=== PATIENT | male | born 1930 | race Caucasian/White ===

== ENCOUNTER → 2017-03-09 | Outpatient (CLI) | payer MEDICARE, OTHER ==
[2016-06-09 18:04] VITALS: BMI 21.6
[~2017-03-09] MED LIST: ASPI-715 PO; ATOR10TA65 PO; AZIT-18 PO; CALC-638 PO; CALC-756 PO; CALC-852 PO; CALC-9 PO; CALC500T6 PO; CAR3.125 PO; CAR6.25 PO; CHOL100058 PO; CHOL200022 PO; CIP500 PO; CLOB15OI16 TP; CYA1000 PO; Cefdinir PO; DEX4 PO; DEXA2TAB7 PO; DIGO125T90 PO; DIGO250T76 PO; DILT240C PO; DIPH0.5D12 IM; DOC100 PO; ENOX100D5 SC; ENOX40DI8 SQ; FISH OIL1 CAP PO; FISH1CAP15 PO; FLU45SYR25 IM ONLY; FURO-45 PO; FURO-47 PO; HYDR-385 PO; HYDR453.8 TP; IBAN150T6 PO; LACT1CAP6 PO; LACT1CAP9 PO; LID5T TP; LISI-357 PO; LISI5TAB25 PO; LOPE2CAP15 PO; LOR5/325 PO; MULT-820 PO; MULT1TAB64 PO; NIVO100V IV; OMEG-11 PO; OMEG-97 PO; OMEP-125 PO; OMEP-153 PO; OMEP40CA45 PO; OMEP40CA48 PO; ONDA4TAB PO; ONDA8TAB91 PO; ONDA8TAB94 PO; OXYC-373 PO; OXYGENHOME INH; PER PO; PNEU0.5D3 IM; POTA-23 PO; PRED-1 PO; PSYL1000 PO; PYRI100T57 PO; SIMV-44 PO; STOPPED ASA; TAMS0.4C25 PO; TRAM-420 PO; VIT-7 PO; WARF-1 PO; WARF-18 PO; [UNRECOGNIZED DRUG - OTHER] PO
[2017-03-09 08:34] LABS: INR 2.34
== END ==
LOC: ZZSPRING 00:48
PROVIDERS: ATTEND Pharmacist Pharmacotherapy
DX: I26.99 Other pulmonary embolism without acute cor pulmonale (principal); I48.0 Paroxysmal atrial fibrillation; D68.59 Other primary thrombophilia
CPT/HCPCS: 36415; 85610

== ENCOUNTER 2017-03-18 11:27 | Outpatient (RCR) | payer MEDICARE, OTHER ==
[2016-06-09 18:04] VITALS: Ht 180.3 cm; Wt 76.6 kg
[2017-01-03] MEDS: NS(*) 0.9% 500 ML BAG 500 ML IV PRN (09:00)
[2017-01-03] MEDS: LIDOCAINE/SOD BICARB 8.4% SYR ID PRN (09:00)
[2017-01-03 09:38] VITALS: BP 99/65
[2017-01-03 09:51] LABS: PLATELET COUNT, AUTOMATED 155 K/uL (150-450)
[2017-01-03] MEDS: DEXAMETHASONE SOD PHOS 10MG/ML IVP PRN (10:31)
--- NOTE | 2017-01-03 11:02 | ONC Progress Note - NP.Halsey ---
Patient History Date of Service Jan 03, 2017 Reason For Visit/HPI Patient is seen in the clinic today for cycle 6 day 8 of gemcitabine as treatment for his classic Hodgkin lymphoma involving the retroperitoneum. Patient has a history of early stage colon cancer and prostate cancer. Patient is seen with his and daughter. Overall he is feeling very well and has no new concerns. He continues to have mild to moderate fatigue and neuropathy in his toes and his right thumb only. Patient reports that he is scheduled for a CT scan on January 17 and will follow with Dr. Sanders to review results. Problem List (1) History of colon cancer, stage I (2) History of prostate cancer Oncology History The patient is an 86-year-old male who presented with low back pain and ankle weakness, so the patient had MRI of the lumbar spine without contrast, which was done on November 12, 2015. This MRI actually showed extensive retroperitoneal adenopathy suspicious for malignancy. There was 1.1 cm focal marrow lesion in lumbar 4, which was indeterminate. There was lumbar spondylosis resulting in foraminal stenosis, which appeared worse at lumbar 4-5 and lumbar 5-S1 on the right. The patient had a CT of chest, abdomen and pelvis with/without contrast done on November 17, 2015 which showed enlarged multinodular thyroid gland, post surgical changes from cystectomy and prostatectomy. There was massive retroperitoneal adenopathy, right common iliac lymph node measuring 3.8 cm, right iliac lymph node measured 2.6 cm. There was 9 mm hyperattenuated lesion in the dome of the spleen; could represent hemangioma or lymphangioma. There were numerous bilateral renal cysts. In the mediastinum there was 5.1 cm low dense space-occupying process in the right paratracheal region extending into the precarinal region and an additional 1.3 cm hypodensity in the subcarinal region. A bone scan was done on November 17, 2015 revealing a focal area of isotope in the left tenth costovertebral junction. Repeat CT of abdomen and pelvis with intravenous contrast done on December 05, 2015 did reveal right colonic clips, massive retroperitoneal adenopathy. The renal cyst seems to be simple in nature. The patient had a colonoscopy done on December 04, 2015 because of his history of colon polyps with retroperitoneal lymphadenopathy. There are polyps seen in the cecum, one polyp, two polyps in the ascending colon, one polyp in the descending colon, one polyp in the sigmoid colon. The cecal polyp was quite large and suspicious for neoplasm. On December 05, 2015, the patient had right colon partial resection with no evidence of residual carcinoma. The retroperitoneal lymph node biopsy came back positive for classic Hodgkin lymphoma. The pathology from the polypectomy from the colonoscopy done on December 04, 2015: The ascending polyps came back tubular adenoma; sigmoid colon polyp was tubular adenoma; the descending colon polyp was tubular adenoma ; while the cecal polyp came back positive for invasive, well-differentiated colonic adenocarcinoma. The adenocarcinoma invades into the muscularis propria. So, this will be stage T2. The patient had a 2D echocardiogram which showed normal left ventricular ejection fraction at 56%. The patient started chemotherapy with AVD with Adriamycin, vinblastine, and dacarbazine on January 05, 2016. The patient completed three cycles of AVD on March 15, 2016 and treatment was stopped because of deterioration of the left ventricular ejection fraction from 60% to 40%. The patient started treatment with brentuximab on April 20, 2016. The patient received only one cycle of brentuximab, which was stopped because of severe diarrhea with bloody stool. He stated treatment with Opdivo on May 14, 2016. The patient received four courses of Opdivo completed on June 25, 2016 and that was stopped because of severe diarrhea. The patient started treatment with bendamustine and gemcitabine on August 10, 2016 and will receive cycle 6 day 8 today followed by on sue Resendez Medical History Family History: Diabetes mellitus (DM) Maternal Grandmother, , Age:Unknown FH: heart disease FATHER, , Age:83 MOTHER, , Age:80 FH: prostate cancer Psychosocial History Smoking History: Yes Smoking Status: Former Smoker, Light Tobacco Smoker Exposure to Second Hand Smoke?: No Medications and Allergies Active Scripts Warfarin Sodium (WARFARIN SODIUM) 5 Mg Tablet, 5 MG PO QTUES, TH, SAT, SUN, # 105 TAB TAKE 7.5MG EVERY DAY EXCEPT 5 MG ON MWF OR DIRECTED Prov:CHEN RONDON PHARMD 10/20/16 Potassium Chloride (KLOR-CON 10) 10 Meq Tablet.er, 1 TAB PO TIDCF, #90 TAB 3 Refills Prov:YORDY AVERY MD 10/12/16 Tamsulosin Hcl (FLOMAX) 0.4 Mg Cap.er.24h, 1 CAP PO QDAY, #30 CAPSULE 3 Refills Prov:YORDY AVERY MD 10/05/16 Furosemide (FUROSEMIDE) 20 Mg Tablet, 1 TAB PO QDAY, #30 TAB 6 Refills Prov:YORDY AVERY MD 09/17/16 Multivitamin (MULTI VITAMIN DAILY) 1 Each Tablet, 1 TAB PO QDAY, #90 TAB 3 Refills NO vitamin K in tablet Prov:YORDY AVERY MD 07/13/16 Cholecalciferol (Vitamin D3) (VITAMIN D) 2,000 Unit Tablet, 1 TAB PO QDAY, #90 CAPSULE 3 Refills Prov:YORDY AVERY MD 07/13/16 Digoxin (DIGOXIN) 250 Mcg Tablet, 1 TAB PO QDAY, #90 TAB 3 Refills Prov:YORDY AVERY MD 07/13/16 Carvedilol (CARVEDILOL) 6.25 Mg Tab, 1 TAB PO BID, #180 TAB 3 Refills Prov:YORDY AVERY MD 07/13/16 Omeprazole (OMEPRAZOLE) 20 Mg Capsule.dr, 1 CAP PO QDAY, #90 CAP 3 Refills Prov:YORDY AVERY MD 07/13/16 Cyanocobalamin (Vitamin B-12) (VITAMIN B-12) 1,000 Mcg Tablet, 1 TAB PO QDAY, # 90 TAB 3 Refills Prov:YORDY AVERY MD 07/13/16 Ibandronate Sodium (BONIVA) 150 Mg Tablet, 1 TAB PO Q30D, #4 TAB 6 Refills Prov:YORDY AVERY MD 06/22/16 Reported Medications Calcium Carbonate (CALCIUM) 500 Mg Tablet, 1 TAB PO QDAY 12/29/16 Fish Oil/Dha/Epa (FISH OIL 1,200 MG FISH OIL) 1 Each Capsule, 1 CAP PO QDAY, CAPSULE 12/29/16 Vit A,C & E/Lutein/Minerals (OCUVITE TABLET) 1 Each Tablet, 1 TAB PO QDAY, TAB 12/23/16 Lactobacillus Combo No.10 (PROBIOTIC) 1 Each Capsule, 1 EACH PO DAILY, CAPSULE 08/13/16 Discontinued Scripts [place]-3 Fatty Acids/Fish Oil (FISH OIL 1,000 MG CAPSULE) 1 Each Capsule, 1 CAP PO QDAY, #90 CAPSULE 3 Refills Prov:YORDY AVERY MD 07/13/16 Calcium Carbonate/Vitamin D3 (Calcium 500 + Vit D 400 Tablet) 1 Each Tablet, 1 TAB PO QDAY, #30 TAB 11 Refills Prov:YORDY AVERY MD 07/13/16 Allergies: Coded Allergies: gemfibrozil (Verified Allergy, Intermediate, RASH, FATIGUE, 08/13/16) levofloxacin (Verified Allergy, Intermediate, rash, fatigue, Achilles tendon problem, 08/13/16) lovastatin (Verified Adverse Reaction, Intermediate, MYALGIA, 08/13/16) morphine (Verified Adverse Reaction, Intermediate, HALLUCINATIONS, 08/13/16) simvastatin (Verified Adverse Reaction, Mild, MYALGIA, 08/13/16) Review of System/Physical Exam Review of Systems All Systems Reviewed/Normal: Yes, Except as Noted Hematologic: Positive for Fatigue, Positive for Weakness (patient uses the cane for stabilization with ambulation) Musculoskeletal: Positive for Bone Pain (occasional episodes of back pain which he takes Tylenol up to 2 tablets in a day) Neurologic: Numbness of Hands (right thumb only), Numbness of Feet, Tingling of Feet Physical Exam Vital Signs Temperature: 98.0 Pulse: 85 BP Systolic: 99 BP Diastolic: 65 Respiratory Rate: 16 O2 SAT: 90 O2 Delivery: Height (inches) 71.00 Weight lb: 155 Weight oz: 5.0 Weight Kg (Noah): Pain: 2 ECOG Score: 1 General: Stable, Well Developed, Well Nourished, Not In Acute Distress HEENT: No Trauma, No Conjunctivitis, No Icterus, No Mucositis, No Oral Thrush Neck: Supple Lungs: Clear to Auscultation Heart: Regular Rate, Regular Rhythm, No Gallops, No Murmurs Abdomen: Soft and Nontender, No Hepatosplenomegaly, No Masses Extremities: No Cyanosis, No Clubbing, No Edema Lymphadenopathy: No Cervical, No Subclavicular Psychiatric: Mood appears normal, Affect appears normal Skin: No Skin Rashes, No Bruising Diagnostic Studies Diagnostic Studies Laboratory Laboratory Tests 01/03/17 09:40 Laboratory Tests 01/03/17 09:40: White Blood Count 2.8, Red Blood Count 3.90, Hemoglobin 10.4, Hematocrit 31.6, Mean Corpuscular Volume 80.9, Mean Corpuscular Hemoglobin 26.6, Mean Corpuscular Hemoglobin Concent 32.9, Red Cell Distribution Width 20.0, Platelet Count 155, Mean Platelet Volume 8.7, Neutrophils (%) (Auto) , Lymphocytes (%) ( Auto) , Monocytes (%) (Auto) , Eosinophils (%) (Auto) , Basophils (%) (Auto) , Nucleated RBC Relative Count (auto) , Neutrophils # (Auto) , Lymphocytes # (Auto ) , Monocytes # (Auto) , Eosinophils # (Auto) , Basophils # (Auto) , Nucleated RBC Absolute Count (auto) , Neutrophils % (Manual) 63, Band Neutrophils % 1, Lymphocytes % (Manual) 9, Atypical Lymphocytes % 2, Monocytes % (Manual) 19, Eosinophils % (Manual) 3, Basophils % (Manual) 2, Myelocytes % 1, Differential Comment See comment, Polychromasia 1+, Hypochromasia 2+, Anisocytosis 1+, Microcytosis 1+, Macrocytosis 2+, Peripheral Blood Smear Yes, Sodium Level 139, Potassium Level 4.1, Chloride Level 108, Carbon Dioxide Level 20, Blood Urea Nitrogen 15, Creatinine 0.90, Glomerular Filtration Rate Calc > 60.0, Random Glucose 123, Uric Acid 5.8, Calcium Level 9.5, Total Bilirubin 0.8, Aspartate Amino Transf (AST/SGOT) 23, Alanine Aminotransferase (ALT/SGPT) 29, Alkaline Phosphatase 64, Total Protein 6.7, Albumin 3.8 Assessment and Plan Assessment & Plan 1. Classic Hodgkin's lymphoma involving the retroperitoneum. Bone marrow was negative for metastasis and PET scan revealed lymphadenopathy above and below the diaphragm. Patient received chemotherapy with AVD regimen with adriamycin, vinblastine and dacarbazine, and treatment stopped because of deterioration of the left ventricular ejection fraction to 40%. Patient showed response to that treatment. He received one cycle of brentuximab on April 20, 2016, and the patient developed severe diarrhea with the treatment so it was stopped. He started treatment with Opdivo on May 14, 2016, and received four courses, completed June 25, 2016, and treatment stopped because of the development of severe diarrhea and deterioration of the general condition requiring hospitalization. After that patient started treatment with bendamustine and gemcitabine on August 09, 2016, and he is tolerating treatment. He had a CT of chest, abdomen and pelvis done October 25, 2016 after three cycles of chemotherapy which showed stable disease. He finished five cycles so far and will complete cycle 6 day 8 today. He will follow with Dr. Sanders in four weeks with CBC, chem panel, LDH, uric acid, ESR and CT of chest, abdomen and pelvis with IV and oral contrast. 2. Chemotherapy-induced anemia. Current hemoglobin 10.4, which is stable. We will continue to monitor. 3. History of prostate cancer. 4. Atrial fibrillation, on treatment. 5. Early colon cancer after polypectomy of cecal polyp done December 04, 2015 , which came positive for invasive well differentiated adenocarcinoma of the colon with invasion of the muscularis propria. Partial resection of the right colon was done December 05, 2015 and was negative for adenocarcinoma. Tumor was staged as stage I (T2 N0 M0). CEA October 2016 was 3.7, down from 4. Most recent on 12/27/2016 was 4.1. 6. Elevated TSH noted at 5.43 on 06/29/2016. I will repeat TSH today. Patient previously was on Opdivo which could've increased his thyroid test PLAN 1. Chemotherapy with bendamustine and gemcitabine. This will be cycle number six day 8 today. 2. CBC, chem panel, uric acid to be checked weekly. 3. Patient is to return in four weeks with CBC, chem panel, LDH, uric acid, ESR and CT of chest, abdomen and pelvis. 4. Neulasta 6 mg subcutaneously after each cycle of chemotherapy. 5. Repeat TSH for further evaluation. 6. Patient is to contact us for any new concerns or complaints. I personally spent a total of 20 minutes. Of that 15 minutes was counseling/ coordination of patient's care. See my note above for details. FRANCOIS NORIEGA DEBATE DIRECTOR-BC, ONC Jan 03, 2017 11:02
[2017-01-03 12:22] VITALS: BP 105/70
[2017-01-04 09:30] VITALS: BP 105/63
[2017-01-04] MEDS: DEXAMETHASONE SOD PHOS 10MG/ML IVP PRN (09:44)
[2017-01-04] MEDS: LIDOCAINE/SOD BICARB 8.4% SYR ID PRN (09:46)
[2017-01-04] MEDS: NS(*) 0.9% 500 ML BAG 500 ML IV PRN (09:47)
[2017-01-04 11:38] VITALS: BP 104/70
--- NOTE | 2017-01-17 11:37 | RADIOLOGY IMAGING REPORT ---
[place] [facility] [place] Lyle Lange : 1930 MR: [id number] V: [id number] EXAM DATE: ORDERING PHYSICIAN: DEANN SIDDIQUI TECHNOLOGIST: Location: [facility] Patient: Lyle Lange : 1930 Visit/Account:[id number] Date of Sevice: 01/17/2017 CHEST/AB/PELV W/CONTRAST EXAMINATION: CT chest with IV contrast Additional Pertinent history: History of lymphoma. Colon CA. TECHNIQUE: Spiral scan was obtained through the chest /abdomen/pelvis during injection of nonionic iodinated intravenous contrast. Reconstructed coronal and sagittal images obtained as well. Contrast: 75 mL of IV [id number]. COMPARISON STUDIES: 10/25/2016 One of the following dose optimization techniques was utilized in the performance of this exam: Autom ated exposure control; adjustment of the mA and/or kV according to the patient's size; or use of an i terative reconstruction technique. Specific details can be referenced in the facility's radiology C T exam operational policy. FINDINGS: Lungs / pleura: Bullous changes in the right apex. Scattered areas of centrilobular emphysematous ch anges throughout both lung goddard. Passive atelectatic lung changes at the lung bases. Clearing of the small effusions seen on the previous study. Small 4 mm nodular density in the inferior aspect of the right lung (image 73 series 2) unchanged in appearance. Mediastinum / waylon: Soft tissue density in the pretracheal soft tissues likely representing fluid wit hin the right paratracheal region extending into the carinal region. Heart / pericardium: Increasing pericardial effusion. Maximal depth of effusion is 0.1 cm. At a sim ilar location previously this had measured 1.2 cm. Vessels: Dilatation of the ascending aorta measur ing 4.6 cm in AP dimension. No dissection. Musculoskeletal / Body wall: No acute osseous pathology in the thoracic spine. No compression deform ities or fractures. Posterior elements well-maintained Lymph node assessment: negative Lower neck: Heterogenous thyroid gland with multiple small subcentimeter cystic lesions . Liver / biliary: Status post cholecystectomy. No liver lesions. Pancreas: Atrophy of the pancreas. Spleen: negative Adrenal glands: negative Kidneys / retroperitoneum: Bilateral renal cysts. Pelvic structures: Bladder is unremarkable. Bowel / peritoneum / mesenteries: No bowel inflammation. No colonic mass lesions. Vessels: negative Musculoskeletal / Body wall: Marked compression changes of the L3 vertebral body. Lesser compression changes seen of the L1 and two vertebral bodies. Vertebral body heterogeneity and T12 likely repres enting an hemangioma. Penile implant device identified in the pelvis. Lymph node assessment: Gastrohepatic ligament lymph node measuring 1.5 cm in size (image 94 series 2) is similar in appearance to the previous study. Stable appearing scattered periaortic and pericaval lymph nodes. IMPRESSION: 1. Resolution of bilateral pleural effusions when compared to previous study. 2. Stable appearing ascending aorta aneurysmal change. 3. Stable appearing 4 mm nodule in the right lower lung field adjacent to the hemidiaphragm. 4. Increasing pericardial effusion. 5. Stable appearing 1.5 cm gastrohepatic ligament lymph node 6. Stable appearing compression changes in the lumbar spine. Probable hemangioma appearing change i n the T12 vertebral body Report Dictated By: Talon Dale MD at 01/17/2017 11:02 AM Report E-Signed By: Talon Dale MD at 01/17/2017 11:32 AM WSN:[id number]
--- NOTE | 2017-01-21 09:09 | ONC Progress Note - NP.Halsey ---
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 Patient's family is with him today. Patient had a CT completed previously and will be reviewed today. He recently has completed cycle 6 day 8 of gemcitabine. Patient continues to feel relatively well. He denies any nausea or vomiting, diarrhea or constipation, no fever or chills. He has no new bone aches. 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 This remained stable. Patient is using a walker with ambulation. His daughter was on the telephone and could hear our conversation today. Previously the CT has been reviewed with Dr. Sanders over the phone and with patient's daughters. Oncology History The patient is an 86-year-old male who presented with low back pain and ankle weakness, so the patient had MRI of the lumbar spine without contrast, which was done on November 12, 2015. This MRI actually showed extensive retroperitoneal adenopathy suspicious for malignancy. There was 1.1 cm focal marrow lesion in lumbar 4, which was indeterminate. There was lumbar spondylosis resulting in foraminal stenosis, which appeared worse at lumbar 4-5 and lumbar 5-S1 on the right. The patient had a CT of chest, abdomen and pelvis with/without contrast done on November 17, 2015 which showed enlarged multinodular thyroid gland, post surgical changes from cystectomy and prostatectomy. There was massive retroperitoneal adenopathy, right common iliac lymph node measuring 3.8 cm, right iliac lymph node measured 2.6 cm. There was 9 mm hyperattenuated lesion in the dome of the spleen; could represent hemangioma or lymphangioma. There were numerous bilateral renal cysts. In the mediastinum there was 5.1 cm low dense space-occupying process in the right paratracheal region extending into the precarinal region and an additional 1.3 cm hypodensity in the subcarinal region. A bone scan was done on November 17, 2015 revealing a focal area of isotope in the left tenth costovertebral junction. Repeat CT of abdomen and pelvis with intravenous contrast done on December 05, 2015 did reveal right colonic clips, massive retroperitoneal adenopathy. The renal cyst seems to be simple in nature. The patient had a colonoscopy done on December 04, 2015 because of his history of colon polyps with retroperitoneal lymphadenopathy. There are polyps seen in the cecum, one polyp, two polyps in the ascending colon, one polyp in the descending colon, one polyp in the sigmoid colon. The cecal polyp was quite large and suspicious for neoplasm. On December 05, 2015, the patient had right colon partial resection with no evidence of residual carcinoma. The retroperitoneal lymph node biopsy came back positive for classic Hodgkin lymphoma. The pathology from the polypectomy from the colonoscopy done on December 04, 2015: The ascending polyps came back tubular adenoma; sigmoid colon polyp was tubular adenoma; the descending colon polyp was tubular adenoma ; while the cecal polyp came back positive for invasive, well-differentiated colonic adenocarcinoma. The adenocarcinoma invades into the muscularis propria. So, this will be stage T2. The patient had a 2D echocardiogram which showed normal left ventricular ejection fraction at 56%. The patient started chemotherapy with AVD with Adriamycin, vinblastine, and dacarbazine on January 05, 2016. The patient completed three cycles of AVD on March 15, 2016 and treatment was stopped because of deterioration of the left ventricular ejection fraction from 60% to 40%. The patient started treatment with brentuximab on April 20, 2016. The patient received only one cycle of brentuximab, which was stopped because of severe diarrhea with bloody stool. He stated treatment with Opdivo on May 14, 2016. The patient received four courses of Opdivo completed on June 25, 2016 and that was stopped because of severe diarrhea. The patient started treatment with bendamustine and gemcitabine on August 10, 2016 and will receive cycle 6 day 8 today followed by on body Neulasta 01/21/2017 CT chest abdomen and pelvis with IV and oral contrast reviewed with patient. No evidence of residual disease. Patient will take 2 months without chemotherapy. He will see a desk pen set assembler for increased cardiac effusion and have an echocardiogram completed prior office visit. Medical History Family History: Colitis BROTHER OR SISTER, Age:81 Diabetes mellitus (DM) Maternal Grandmother, , Age:Unknown FH: heart disease FATHER, , Age:83 MOTHER, , Age:83 FH: prostate cancer Psychosocial History Social History Patient is retired currently living in an assisted living facility. He is and has adult children Smoking History: Yes Smoking Status: Former Smoker, Light Tobacco Smoker Exposure to Second Hand Smoke?: No Medications and Allergies Active Scripts Ibandronate Sodium (BONIVA) 150 Mg Tablet, 1 TAB PO Q30D, #4 TAB 6 Refills Prov:FRANCOIS NORIEGA David CREDIT ADMINISTRATION SPECIALIST-BC, ONC 01/21/17 Warfarin Sodium (WARFARIN SODIUM) 5 Mg Tablet, 5 MG PO QTUES, TH, SAT, SUN, # 105 TAB TAKE 7.5MG EVERY DAY EXCEPT 5 MG ON MWF OR DIRECTED Prov:CHEN RONDON PHARMD 10/20/16 Potassium Chloride (KLOR-CON 10) 10 Meq Tablet.er, 1 TAB PO TIDCF, #90 TAB 3 Refills Prov:YORDY AVERY MD 10/12/16 Tamsulosin Hcl (FLOMAX) 0.4 Mg Cap.er.24h, 1 CAP PO QDAY, #30 CAPSULE 3 Refills Prov:YORDY AVERY MD 10/05/16 Furosemide (FUROSEMIDE) 20 Mg Tablet, 1 TAB PO QDAY, #30 TAB 6 Refills Prov:YORDY AVERY MD 09/17/16 Multivitamin (MULTI VITAMIN DAILY) 1 Each Tablet, 1 TAB PO QDAY, #90 TAB 3 Refills NO vitamin K in tablet Prov:YORDY AVERY MD 07/13/16 Cholecalciferol (Vitamin D3) (VITAMIN D) 2,000 Unit Tablet, 1 TAB PO QDAY, #90 CAPSULE 3 Refills Prov:YORDY AVERY MD 07/13/16 Digoxin (DIGOXIN) 250 Mcg Tablet, 1 TAB PO QDAY, #90 TAB 3 Refills Prov:YORDY AVERY MD 07/13/16 Carvedilol (CARVEDILOL) 6.25 Mg Tab, 1 TAB PO BID, #180 TAB 3 Refills Prov:YORDY AVERY MD 07/13/16 Omeprazole (OMEPRAZOLE) 20 Mg Capsule.dr, 1 CAP PO QDAY, #90 CAP 3 Refills Prov:YORDY AVERY MD 07/13/16 Cyanocobalamin (Vitamin B-12) (VITAMIN B-12) 1,000 Mcg Tablet, 1 TAB PO QDAY, # 90 TAB 3 Refills Prov:YORDY AVERY MD 07/13/16 Reported Medications Calcium Carbonate/Vitamin D3 (CALCIUM + VITAMIN D TABLET) 1 Each Tablet, 1 TAB PO QDAY 01/21/17 Fish Oil/Dha/Epa (FISH OIL 1,200 MG FISH OIL) 1 Each Capsule, 1 CAP PO QDAY 12/29/16 Vit A,C & E/Lutein/Minerals (OCUVITE TABLET) 1 Each Tablet, 1 TAB PO QDAY 12/23/16 Lactobacillus Combo No.10 (PROBIOTIC) 1 Each Capsule, 1 EACH PO QDAY 08/13/16 Discontinued Reported Medications Calcium Carbonate (CALCIUM) 500 Mg Tablet, 1 TAB PO QDAY 12/29/16 Allergies: Coded Allergies: gemfibrozil (Verified Allergy, Intermediate, RASH, FATIGUE, 08/13/16) levofloxacin (Verified Allergy, Intermediate, rash, fatigue, Achilles tendon problem, 08/13/16) lovastatin (Verified Adverse Reaction, Intermediate, MYALGIA, 08/13/16) morphine (Verified Adverse Reaction, Intermediate, HALLUCINATIONS, 08/13/16) simvastatin (Verified Adverse Reaction, Mild, MYALGIA, 08/13/16) Review of System/Physical Exam Review of Systems All Systems Reviewed/Normal: Yes, Except as Noted Hematologic: Positive for Fatigue, Positive for Weakness Neurologic: Tingling of Feet Physical Exam Vital Signs Temperature: 98.6 Pulse: 70 BP Systolic: 104 BP Diastolic: 70 Respiratory Rate: 16 O2 SAT: 90 O2 Delivery: Height (inches) 71.00 Weight lb: 155 Weight oz: 5.0 Weight Kg (Noah): Pain: 0 ECOG Score: 1 General: Stable, Well Developed, Well Nourished, Not In Acute Distress Psychiatric: Mood appears normal, Affect appears normal Skin: No Skin Rashes, No Bruising Diagnostic Studies Diagnostic Studies Laboratory Laboratory Tests 01/03/17 09:40 Laboratory Tests 01/03/17 09:40: White Blood Count 2.8, Red Blood Count 3.90, Hemoglobin 10.4, Hematocrit 31.6, Mean Corpuscular Volume 80.9, Mean Corpuscular Hemoglobin 26.6, Mean Corpuscular Hemoglobin Concent 32.9, Red Cell Distribution Width 20.0, Platelet Count 155, Mean Platelet Volume 8.7, Neutrophils (%) (Auto) , Lymphocytes (%) ( Auto) , Monocytes (%) (Auto) , Eosinophils (%) (Auto) , Basophils (%) (Auto) , Nucleated RBC Relative Count (auto) , Neutrophils # (Auto) , Lymphocytes # (Auto ) , Monocytes # (Auto) , Eosinophils # (Auto) , Basophils # (Auto) , Nucleated RBC Absolute Count (auto) , Neutrophils % (Manual) 63, Band Neutrophils % 1, Lymphocytes % (Manual) 9, Atypical Lymphocytes % 2, Monocytes % (Manual) 19, Eosinophils % (Manual) 3, Basophils % (Manual) 2, Myelocytes % 1, Differential Comment See comment, Polychromasia 1+, Hypochromasia 2+, Anisocytosis 1+, Microcytosis 1+, Macrocytosis 2+, Peripheral Blood Smear Yes, Sodium Level 139, Potassium Level 4.1, Chloride Level 108, Carbon Dioxide Level 20, Blood Urea Nitrogen 15, Creatinine 0.90, Glomerular Filtration Rate Calc > 60.0, Random Glucose 123, Uric Acid 5.8, Calcium Level 9.5, Total Bilirubin 0.8, Aspartate Amino Transf (AST/SGOT) 23, Alanine Aminotransferase (ALT/SGPT) 29, Alkaline Phosphatase 64, Total Protein 6.7, Albumin 3.8, Thyroid Stimulating Hormone (TSH ) 5.22 Radiology IMPRESSION: 1. Resolution of bilateral pleural effusions when compared to previous study. 2. Stable appearing ascending aorta aneurysmal change. 3. Stable appearing 4 mm nodule in the right lower lung field adjacent to the hemidiaphragm. 4. Increasing pericardial effusion. 5. Stable appearing 1.5 cm gastrohepatic ligament lymph node 6. Stable appearing compression changes in the lumbar spine. Probable hemangioma appearing change in the T12 vertebral body Report Dictated By: Talon Dale Assessment and Plan Assessment & Plan 1. Classic Hodgkin's lymphoma involving the retroperitoneum. Bone marrow was negative for metastasis and PET scan revealed lymphadenopathy above and below the diaphragm. Patient received chemotherapy with AVD regimen with adriamycin, vinblastine and dacarbazine, and treatment stopped because of deterioration of the left ventricular ejection fraction to 40%. Patient showed response to that treatment. He received one cycle of brentuximab on April 20, 2016, and the patient developed severe diarrhea with the treatment so it was stopped. He started treatment with Opdivo on May 14, 2016, and received four courses, completed June 25, 2016, and treatment stopped because of the development of severe diarrhea and deterioration of the general condition requiring hospitalization. After that patient started treatment with bendamustine and gemcitabine on August 09, 2016 and has completed [address] scan reviewed with patient today shows resolution of bilateral pleural effusions, stable-appearing 4 mm nodule in the right lung field, stable appearing 1.5 gastrohepatic ligament lymph node, stable appearing compression changes from lumbar spine. Patient does have increasing pericardial effusion. We will stop treatment at this time and repeat CT scan of the chest abdomen and pelvis with IV and oral contrast in 2 months. Patient will have monthly labs and port flush to include CEA, CBC, chem panel and uric acid. In addition patient will have a 2-D echocardiogram for left ventricular ejection fraction due to his increased pericardial effusion. He will also follow with cardiology for further evaluation and recommendation. Patient reports that he has an appointment on February 15. 2. Chemotherapy-induced anemia. Has remained stable. We will continue to monitor. 3. History of prostate cancer. 4. Atrial fibrillation, on treatment. Refer to cardiology 5. Early colon cancer after polypectomy of cecal polyp done December 04, 2015 , which came positive for invasive well differentiated adenocarcinoma of the colon with invasion of the muscularis propria. Partial resection of the right colon was done December 05, 2015 and was negative for adenocarcinoma. Tumor was staged as stage I (T2 N0 M0). CEA October 2016 was 3.7, down from 4. Most recent on 12/27/2016 was 4.1. 6. Elevated TSH noted at 5.43 on 06/29/2016. More recent TSH was 5.22. Patient previously was on Opdivo which could've increased his thyroid test. We will continue to monitor PLAN 1. Chemotherapy with bendamustine and gemcitabine on hold. 2. CBC, chem panel, uric acid, TSH to be checked monthly 3. Patient is to return in four weeks with CBC, chem panel, LDH, uric acid, ESR and CT of chest, abdomen and pelvis with IV and oral contrast in 2 months and follow-up with Dr. Sanders.. 4. Patient is to contact us for any new concerns or complaints 5. Monthly port flush for port maintenance. I personally spent a total of 40 minutes. Of that 35 minutes was counseling/ coordination of patient's care. See my note above for details. Copies to: YORDY AVERY MD, NANCY J CREDIT ADMINISTRATION SPECIALIST-BC, ONC Jan 21, 2017 09:09
[2017-01-21 14:04] VITALS: BP 124/67
--- NOTE | 2017-02-03 19:38 | RADIOLOGY IMAGING REPORT ---
[place] [facility] [place] SANDRA EVANGELISTA : [id number] MR: [id number] V: [id number] EXAM DATE: ORDERING PHYSICIAN: FRANCOIS NORIEGA TECHNOLOGIST: Annie Britton EXAMINATION:TWO-DIMENSIONAL ECHOCARDIOGRAPH REASON:CHEMOTHERAPY. 2D Measurements (normal values in centimeters) LV endLV endRV endVent.LV PostAorticLeftPercent DiastolicSystolicDiastolicSeptumWallRootAtriumShortening (3.5-5.7)(0.9-2.6)(0.6-1.1)(0.6-1.1)(2.0-3.7)(1.9-4.0)(25-35%) [id number]% STROKE VOLUME: 33 mL ESTIMATED EJECTION FRACTION:33% PARASTERNAL LONG AXIS: The patient has an irregular heart rhythm. Mild left ventricular thickening is noted. The right ventricle appears to contract normally. The left atrium appears to be enlarged. The aortic root is also enlarged. Color examination of the mitral valve reveals mitral insufficiency. There is also some aortic insufficiency present. PARASTERNAL SHORT AXIS: Left ventricular systolic function appears to be decreased. Generalized hypokinesis. Aortic valve was trileaflet in configuration. There is some aortic insufficiency present. APICAL FOUR AND TWO CHAMBER: Decreased left ventricular systolic function. Difficult to actually tell if the patient appears to be in atrial fibrillation. No thrombi are noted and the left atrial appendage is not seen. Aortic valve area was not measured but there is some aortic insufficiency present. This is a limited echocardiograph. There is a mild amount of tricuspid insufficiency and the tricuspid regurgitation V-max is measured at 2.87 m/sec. The estimated right atrial pressure is 15 mmHg. Left atrial volume and right atrial volume are mildly increased at 32 and 29 mL/m2. There are several jets of mitral insufficiency noted. SUBCOSTAL VIEW: No pericardial effusion was noted. No atrial septal or ventricular septal defects were appreciated. OVERALL IMPRESSION: 1. Decreased left ventricular ejection fraction was measured at 33% but the patient is in atrial fibrillation. The last ejection fraction was measured on 11/09/16 was 51%. 2. The patient is in atrial fibrillation and no thrombi are noted. The left atrial appendage was not seen. 3. There is mild to borderline moderate concentric left ventricular thickening but no evidence for any outflow tract obstruction. 4. Mild enlargement of the ascending aorta which is not changed from last echocardiogram in November. 5. A trileaflet aortic valve with a mild to moderate amount of aortic insufficiency. 6. Mild amount of tricuspid insufficiency with estimated right ventricular systolic pressures of 48 mmHg which is decreased from 56 mmHg. 7. There is a moderate amount of mitral insufficiency and a mild amount of pulmonic insufficiency present. The patient also appears to be in a possible bundle branch block. 8. The left atrial volume is decreased since last examination but the left ventricular systolic function has significantly decreased. 9. I might possibly recommend a MUGA scan to get a better look at the systolic function since it has significantly decreased since last echocardiograph in November but this could be due to his atrial fibrillation as well. Dictated by: Aurelio Rick M.D. on 02/02/2017 at 20:16 Transcribed by: TED on 02/03/2017 at 13:10 Approved by: Aurelio Rick M.D. on 02/03/2017 at 19:35 [facility]
[2017-02-14 13:29] LABS: PLATELET COUNT, AUTOMATED 219 K/uL (150-450)
[2017-03-14 10:39] VITALS: BP 88/57
[2017-03-14] MEDS: LIDOCAINE/SOD BICARB 8.4% SYR ID PRN (10:46)
[2017-03-14] MEDS: HEPARIN FLSH (PORT) 500 UN/5ML IVP PRN (10:47)
[2017-03-14 10:55] LABS: PLATELET COUNT, AUTOMATED 223 K/uL (150-450)
[2017-03-17] MEDS: HEPARIN FLSH (PORT) 500 UN/5ML IVP PRN (10:07)
[2017-03-17] MEDS: LIDOCAINE/SOD BICARB 8.4% SYR ID PRN (10:07)
--- NOTE | 2017-03-17 14:48 | RADIOLOGY IMAGING REPORT ---
FAC[facility] PATIENT NAME: Lyle Lange : 1930 MR: [id number] V: [id number] EXAM DATE: ORDERING PHYSICIAN: DEANN SIDDIQUI TECHNOLOGIST: Location: [facility] [place] Patient: Lyle Lange : 1930 Visit/Account:[id number] Date of Sevice: 03/17/2017 CHEST/AB/PELV W/WO CONTRAST HISTORY: History of lymphoma and colon cancer follow-up ADDITIONAL HISTORY: None. TECHNIQUE: Pre and post administration of IV contrast axial images acquired through the chest abdome n and pelvis during the portal venous phase. Coronal and sagittal reformatting was also performed. D ose Lowering Technique One of the following dose optimization techniques was utilized in the performance of this exam: Autom ated exposure control; adjustment of the mA and/or kV according to the patient's size; or use of an i terative reconstruction technique. Specific details can be referenced in the facility's radiology C T exam operational policy. 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 4 mm nodule inferior aspect of the right lower lo be best seen on image 78 has remained stable Mediastinum/lymph nodes: Soft tissue density in the pretracheal region extends towards the abimael ap pears similar to the prior study likely representing fluid. Heart/vessels: Only a tiny amount of pericardial fluid remains. Acsending thoracic aortic aneurysm again noted measuring 4.6 cm in AP dimension appears unchanged. Extensive coronary artery vascular c alcifications are again noted. There is an implanted right IJ port with the distal tip in superior v colin cava. Bones/soft tissues: Mild to moderate spondylotic changes in the thoracic spine are noted. Is a slig ht mottled appearance to the T12 vertebral body although appears similar to the prior study ABDOMEN AND PELVIS: Hepatobiliary: Postsurgical changes from a cholecystectomy Spleen: Unremarkable arterial phase enhancement Pancreas: Negative. Adrenals: Negative. Kidneys ureters and bladder : There are numerous bilateral renal cysts and nonobstructing calculi in both renal collecting systems Genitalia: There are postsurgical changes from a prostatectomy. Penile implant is incompletely image d GI: There are postsurgical changes from a right hemicolectomy. No evidence of bowel wall thickenin g or bowel obstruction. There is a duodenal diverticulum. Small hiatal hernia also noted Vessels/spaces/nodes: 1.4 x 1.3 cm gastrohepatic lymph node remains stable . Scattered small peria ortic lymph nodes remain stable Bones/soft tissues: Compression fractures at L1, L2, L3 and L5 appears similar to the prior study. Extensive spondylotic changes also noted in the lumbar spine Additional findings: None pertinent. IMPRESSION: Post disease in the right pulmonary apex again noted 4 mm noncalcified nodule inferior right lower lobe has remained stable Soft tissue density process in the pretracheal region extending to the abimael likely representing flu id has remained stable Interval decrease in the pericardial effusion with only a tiny amount of pericardial fluid remaining Ascending aortic aneurysm remains unchanged. Postsurgical changes from right hemicolectomy and cholecystectomy and prostatectomy. Small hiatal he rnia 1.4 center gastrohepatic lymph node and small periaortic lymph nodes remain stable Multiple compression fractures lumbar spine and mild appearance to T12 all appear stable. Report Dictated By: Caryl Mims MD at 03/17/2017 2:13 PM Report E-Signed By: Caryl Mims MD at 03/17/2017 2:45 PM WSN:[email or web address]
[~2017-03-18] VITALS: Ht 180.3 cm; Wt 76.6 kg
[~2017-03-18 11:27] MED LIST changes: +ALTEPLASE RECOMB 2 MG VIAL IVP PRN; +BENDAMUSTINE HCL IVPB ONE; +DEXTROSE 5%(*) 100 ML BAG 100 ML IVPB PRN; +GEMCITABINE IVPB ONE; +IOPAMIDOL 76% 150 ML INFUS BTL 150 ML ONE; +IOPAMIDOL 76% 75 ML INFUS BTL 75 ML ONE; +NS 0.9% 50 ML VIAL 100 ML ONE; +NS 0.9% IVPB ONE; +NS(*) 0.9% 100 ML BAG 100 ML IVPB PRN; +PALONOSETRON 0.25 MG/5 ML VIAL IVP PRN; +PEGFILGRASTIM 6 MG/0.6 ML KIT SUBQ ONE; +WATER STERILE 10 ML VIAL IVP PRN; +[UNRECOGNIZED DRUG - OTHER] IVPB ONE
[2017-03-18 11:34] VITALS: BP 108/67
--- NOTE | 2017-03-18 17:24 | ONCOLOGY FOLLOW UP NOTE ---
EVENT DATE: March 18, 2017 DIAGNOSES 1. Classic Hodgkin lymphoma involving the retroperitoneum. 2. Early stage colon cancer after polypectomy of cecal polyp. 3. Atrial fibrillation. 4. History of prostate cancer. 5. History of antiphospholipid antibody syndrome with history of pulmonary embolism in the past. 6. Hypertension. 7. Hypercholesterolemia. CHIEF COMPLAINT Patient is here today for followup of his Hodgkin's lymphoma. ONCOLOGY HISTORY The patient is an 87-year-old male who presented with low back pain and ankle weakness, so the patient had MRI of the lumbar spine without contrast, which was done on November 12, 2015. This MRI actually showed extensive retroperitoneal adenopathy suspicious for malignancy. There was 1.1 cm focal marrow lesion in lumbar 4, which was indeterminate. There was lumbar spondylosis resulting in foraminal stenosis, which appeared worse at lumbar 4-5 and lumbar 5-S1 on the right. The patient had a CT of chest, abdomen and pelvis with/without contrast done on November 17, 2015 which showed enlarged multinodular thyroid gland, post surgical changes from cystectomy and prostatectomy. There was massive retroperitoneal adenopathy, right common iliac lymph node measuring 3.8 cm, right iliac lymph node measured 2.6 cm. There was 9 mm hyperattenuated lesion in the dome of the spleen; could represent hemangioma or lymphangioma. There were numerous bilateral renal cysts. In the mediastinum there was 5.1 cm low dense space-occupying process in the right paratracheal region extending into the precarinal region and an additional 1.3 cm hypodensity in the subcarinal region. A bone scan was done on November 17, 2015 revealing a focal area of isotope in the left tenth costovertebral junction. Repeat CT of abdomen and pelvis with intravenous contrast done on December 05, 2015 did reveal right colonic clips, massive retroperitoneal adenopathy. The renal cyst seems to be simple in nature. The patient had a colonoscopy done on December 04, 2015 because of his history of colon polyps with retroperitoneal lymphadenopathy. There are polyps seen in the cecum, one polyp, two polyps in the ascending colon, one polyp in the descending colon, one polyp in the sigmoid colon. The cecal polyp was quite large and suspicious for neoplasm. On December 05, 2015, the patient had right colon partial resection with no evidence of residual carcinoma. The retroperitoneal lymph node biopsy came back positive for classic Hodgkin lymphoma. The pathology from the polypectomy from the colonoscopy done on December 04, 2015: The ascending polyps came back tubular adenoma; sigmoid colon polyp was tubular adenoma; the descending colon polyp was tubular adenoma ; while the cecal polyp came back positive for invasive, well-differentiated colonic adenocarcinoma. The adenocarcinoma invades into the muscularis propria. So, this will be stage T2. The patient had a 2D echocardiogram which showed normal left ventricular ejection fraction at 56%. The patient started chemotherapy with AVD with Adriamycin, vinblastine, and dacarbazine on January 05, 2016. The patient completed three cycles of AVD on March 15, 2016 and treatment was stopped because of deterioration of the left ventricular ejection fraction from 60% to 40%. The patient started treatment with brentuximab on April 20, 2016. The patient received only one cycle of brentuximab, which was stopped because of severe diarrhea with bloody stool. He stated treatment with Opdivo on May 14, 2016. The patient received four courses of Opdivo completed on June 25, 2016 and that was stopped because of severe diarrhea. The patient started treatment with bendamustine and gemcitabine on August 10, 2016. HISTORY OF PRESENT ILLNESS Patient is here today followup of his Hodgkin's lymphoma. He is doing really very well currently, except for mild fatigue and weakness and numbness in his fingers, but generally speaking he looks much better. PAST MEDICAL HISTORY 1. History of prostate cancer. 2. Antiphospholipid antibody syndrome. 3. Hyperlipidemia. 4. Hypertension. 5. History of pneumonia. 6. History of pulmonary embolism, March 2013. 7. History of GERD. 8. History of thyroid nodule. 9. History of actinic keratosis. PAST SURGICAL HISTORY 1. Cataract extraction bilaterally, December 2006. 2. Vascular surgery, September 2007. 3. Appendectomy at age [age]. 4. Cholecystectomy done laparoscopically in September 2004. 5. Bilateral inguinal hernia repairs, February 2010. 6. Prostatectomy for adenocarcinoma of the prostate, July 1996. 7. Tonsillectomy as a child. FAMILY HISTORY Negative for cancer or blood diseases. SOCIAL HISTORY The patient is with three daughters. 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 He quit smoking a long time ago. He denies any abuse of alcohol or illicit drugs. He drinks about one beer daily. CURRENT MEDICATIONS 1. Omeprazole 40 mg daily. 2. Lisinopril one tablet 5 mg daily. 3. Fish oil 1000 mg. 4. Multivitamins once daily. 5. Carvedilol 3.125 mg twice daily. 6. Probiotic one tablet daily. 7. Warfarin according to the order. 8. Calcium citrate one capsule daily. 9. Vitamin B12 at 1000 mcg one capsule daily. 10. Vitamin D3 at 1000 IU daily. ALLERGIES LEVAQUIN, CLINDAMYCIN. REVIEW OF SYSTEMS CONSTITUTIONAL: No appetite or weight change. No fever, chills or sweating. No recent infection. HEENT: Ears: No tinnitus or hearing problem. Nose: He has occasional nasal discharge. Throat: No sore throat or mouth ulcers. Eyes: No diplopia or visual changes. RESPIRATORY: Patient has exertional shortness of breath CARDIOVASCULAR: No chest pain, orthopnea, or paroxysmal nocturnal dyspnea (PND) . No edema. No palpitations. GASTROINTESTINAL: He has occasional nausea. GENITOURINARY: He has increased frequency of urine. MUSCULOSKELETAL: He has pain in the legs, more on the right than the left. NEUROLOGICAL: Patient has numbness in the fingers. HEMATOLOGIC/LYMPHATIC: He is weak, tired, and fatigued. SKIN: No skin rash or lumps. PSYCHIATRIC: No anxiety or depression. PHYSICAL EXAMINATION GENERAL: Looks stable. Well-developed, well-nourished, and in no acute distress. VITAL SIGNS: Blood pressure 108/67, pulse 84 per minute, respirations 16 per minute, temperature 97.1, pulse ox 90% on room air. HEENT: Head: Atraumatic. No sinus tenderness to palpation. Eyes: No icterus or conjunctivitis. Mouth and throat: No oral thrush or mucositis. NECK: Supple. No cervical or supraclavicular lymphadenopathy. LUNGS: Clear to auscultation and percussion bilaterally. HEART: Regular rate and rhythm. No gallops, murmurs, clicks or rubs. ABDOMEN: Soft and lax. No tenderness. No hepatosplenomegaly. No masses. EXTREMITIES: No cyanosis, clubbing or edema. LYMPHATICS: No peripheral lymphadenopathy. NEUROLOGICAL: Conscious, alert and oriented times three. No focal motor or sensory deficits. PSYCHIATRIC: Mood and affect appear normal. SKIN: No skin rash, bruise or purpuric eruption. DIAGNOSTIC DATA CBC showed a white count of 4.9, hemoglobin 11.4, hematocrit 35.2, platelets 223 ,000 and MCV. Chem panel totally normal, except carbon dioxide 20, total protein 6.1. LDH was 252, uric acid 6.1 [address] is [address]2. [address] chest, abdomen and pelvis with IV and oral contrast done on March 17, 2016 showed a gastrohepatic lymph node stable at 1.4 cm with small periaortic lymph nodes all stable. There is no evidence of disease progression. ASSESSMENT 1. Classic Hodgkin's lymphoma involving retroperitoneum. Bone marrow was negative for metastasis and PET scan revealed lymphadenopathy above and below the diaphragm. Patient received chemotherapy with AVD regimen with adriamycin, vinblastine and dacarbazine, and the treatment stopped because of deterioration of the left ventricular ejection fraction to 40%. Patient showed response to that treatment. He received one cycle of brentuximab on April 20, 2016, and the patient developed severe diarrhea with treatment so it was stopped. He started treatment with Opdivo on May 14, 2016, and he received four courses, completed June 25, 2016, and treatment stopped because of the development of severe diarrhea and deterioration of the general condition requiring hospitalization. After that patient started treatment with bendamustine and gemcitabine on August 09, 2016, and he received six cycles. [address] of chest, abdomen and pelvis done October 25, 2016 did not show significant lymph nodes, and the gastrohepatic lymph node was stable at 1.4 cm, with small periaortic lymph nodes which are also stable. I talked to the patient and his today regarding further management. I am planning to hold his chemotherapy therapy and I will see him in two months from now with CBC, chem panel, LDH, uric acid and ESR. I will repeat his CT of chest, abdomen and pelvis at that time, and if there is any progression of his lymph nodes then we will restart chemotherapy again at that time, and the patient is agreeable with that plan. 2. Chemotherapy-induced anemia. Current hemoglobin 11.4, which is trending up. We will continue to monitor. 3. History of prostate cancer. 4. Atrial fibrillation, on treatment. 5. Early colon cancer after polypectomy of cecal polyp done December 04, 2015 , which came positive for invasive well differentiated adenocarcinoma of the colon with invasion of the muscularis propria. Partial resection of the right colon was done December 05, 2015 and was negative for residual carcinoma. Tumor was staged as stage T2 N0 M0, meaning that he has stage I. CEA currently is 3.2. We will continue to monitor his CEA every three to four months. PLAN 1. Continue followup. 2. Patient to return in two months with CBC, chem panel, LDH, uric acid, ESR, and CT chest, abdomen and pelvis with IV and oral contrast. 3. Hold chemotherapy at the moment. 4. Patient is to contact us for any new concerns or complaints. MTDD
[2017-03-31] MEDS ORDERED: OXYGENHOME INH (10:08)
[2017-04-05] MEDS ORDERED: CHOL200022 PO (11:28)
[2017-04-05] MEDS ORDERED: TAMS0.4C25 PO (11:28)
[2017-04-05] MEDS ORDERED: IBAN150T6 PO (12:33)
[2017-04-05] MEDS ORDERED: FISH1CAP15 PO (12:45)
== END 2017-03-31 ==
LOC: ONC 11:27
PROVIDERS: ATTEND Internal Medicine Hematology
DX: Z51.11 Encounter for antineoplastic chemotherapy (principal); C81.93 Hodgkin lymphoma, unspecified, intra-abdominal lymph nodes; D64.81 Anemia due to antineoplastic chemotherapy; Z85.46 Personal history of malignant neoplasm of prostate; I48.91 Unspecified atrial fibrillation; C18.9 Malignant neoplasm of colon, unspecified; R79.89 Other specified abnormal findings of blood chemistry; Z87.891 Personal history of nicotine dependence; Z79.899 Other long term (current) drug therapy; R53.1 Weakness; R53.83 Other fatigue; I71.4 Abdominal aortic aneurysm, without rupture; R91.1 Solitary pulmonary nodule; I31.3 Pericardial effusion (noninflammatory); I71.2 Thoracic aortic aneurysm, without rupture; K21.9 Gastro-esophageal reflux disease without esophagitis; Z86.711 Personal history of pulmonary embolism; Z79.01 Long term (current) use of anticoagulants; I10 Essential (primary) hypertension; E78.00 Pure hypercholesterolemia, unspecified; M79.604 Pain in right leg
CPT/HCPCS: 36591; 71260; 71270; 74177; 74178; 82378; 83615; 84443; 84550; 85025; 96367; 96372; 96375; 96413; 96415; 96523; G0463; J1100; J1642; J2469; J2505; J7040; J7050; J9034; J9201; Q9967; 72194; 74170; 82040; 82247; 82310; 82374; 82435; 82565; 82947; 84075; 84132; 84155; 84295; 84450; 84460; 84520; 93308; 99212

== ENCOUNTER → 2017-04-12 | Outpatient (CLI) | payer MEDICARE, OTHER ==
[2016-06-09 18:04] VITALS: BMI 21.6
[~2017-04-12] MED LIST changes: -ALTEPLASE RECOMB 2 MG VIAL IVP PRN; -BENDAMUSTINE HCL IVPB ONE; -DEXTROSE 5%(*) 100 ML BAG 100 ML IVPB PRN; -GEMCITABINE IVPB ONE; -IOPAMIDOL 76% 150 ML INFUS BTL 150 ML ONE; -IOPAMIDOL 76% 75 ML INFUS BTL 75 ML ONE; -NS 0.9% 50 ML VIAL 100 ML ONE; -NS 0.9% IVPB ONE; -NS(*) 0.9% 100 ML BAG 100 ML IVPB PRN; -PALONOSETRON 0.25 MG/5 ML VIAL IVP PRN; -PEGFILGRASTIM 6 MG/0.6 ML KIT SUBQ ONE; -WATER STERILE 10 ML VIAL IVP PRN; -[UNRECOGNIZED DRUG - OTHER] IVPB ONE
[2017-04-12 08:58] LABS: INR 2.44
== END ==
LOC: ZZSPRING 02:02
PROVIDERS: ATTEND Pharmacist Pharmacotherapy
DX: I48.0 Paroxysmal atrial fibrillation (principal); D68.59 Other primary thrombophilia; I26.99 Other pulmonary embolism without acute cor pulmonale
CPT/HCPCS: 36415; 85610

== ENCOUNTER → 2017-04-26 | Outpatient (CLI) | payer MEDICARE, OTHER ==
[2016-06-09 18:04] VITALS: BMI 21.6
[~2017-04-26] MED LIST changes: -WARF-18 PO; +WARF5TAB23 PO
[2017-04-26 08:45] LABS: INR 2.71
== END ==
LOC: ZZSPRING 03:00
PROVIDERS: ATTEND Pharmacist Pharmacotherapy
DX: I26.99 Other pulmonary embolism without acute cor pulmonale (principal); D68.59 Other primary thrombophilia; I48.0 Paroxysmal atrial fibrillation
CPT/HCPCS: 36415; 85610

== ENCOUNTER → 2017-05-24 | Outpatient (CLI) | payer MEDICARE, OTHER ==
[2016-06-09 18:04] VITALS: BMI 21.6
[2017-05-24 11:39] LABS: INR 2.37
== END ==
LOC: ZZSPRING 05-23 07:48
PROVIDERS: ATTEND Pharmacist Pharmacotherapy
DX: I48.0 Paroxysmal atrial fibrillation (principal); D68.59 Other primary thrombophilia; I26.99 Other pulmonary embolism without acute cor pulmonale
CPT/HCPCS: 36415; 85610

== ENCOUNTER 2017-05-26 11:25 | Outpatient (RCR) | payer MEDICARE, OTHER ==
[2016-06-09 18:04] VITALS: Wt 78.2 kg
[2017-04-28 11:59] VITALS: BP 110/58
[2017-04-28] MEDS: LIDOCAINE/SOD BICARB 8.4% SYR ID PRN (12:04)
[2017-04-28] MEDS: HEPARIN FLSH (PORT) 500 UN/5ML IVP PRN (12:08)
[2017-05-23] MEDS: LIDOCAINE/SOD BICARB 8.4% SYR ID PRN (09:43)
[2017-05-23] MEDS: HEPARIN FLSH (PORT) 500 UN/5ML IVP PRN (09:44)
[2017-05-23 10:05] LABS: PLATELET COUNT, AUTOMATED 187 K/uL (150-450)
--- NOTE | 2017-05-23 13:50 | RADIOLOGY IMAGING REPORT ---
FAC[place] [facility] [place] NAME: Lyle Lange : 1930 MR: [id number] V: [id number] EXAM DATE: ORDERING PHYSICIAN: DEANN SIDDIQUI TECHNOLOGIST: [place] [facility] [place] Patient: Lyle Lange : 1930 Visit/Account:[id number] Date of Sevice: 05/23/2017 Examination: Computed tomography chest abdomen and pelvis with and without IV contrast HISTORY: Colon cancer. Lung cancer. TECHNIQUE: Transaxial computed marked images are obtained of the chest abdomen and pelvis before and after the administration of 75 mL of Isovue-370. Multiplanar reformatted images were created in the coronal and sagittal planes. One of the following dose optimization techniques was utilized in the performance of this exam: Autom ated exposure control; adjustment of the mA and/or kV according to the patient's size; or use of an i terative reconstruction technique. Specific details can be referenced in the facility's radiology C T exam operational policy. COMPARISON: 03/17/2017. FINDINGS: CT thorax findings: A right internal jugular port catheter terminates within the superior vena cava. On the precontrast images, there are atherosclerotic calcifications within the aortic arch. Dense calcifications within the left anterior descending and circumflex coronary arteries. 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 There is a small hiatal hernia. No axillary adenopathy. The thyroid gland is heterogeneous and this appearance is unchanged. No hilar or mediastinal adenopathy is identified. Calcified right hilar node is characteristic of ol d granulomatous disease. No pericardial effusion. No pleural effusion. Examination of the lung windows demonstrates a stable cyst/bulla within the right apex. Minimal biap ical pleural parenchymal scarring. Surgical staple line involves the periphery of the right upper lo be. This is unchanged. Focal scarring is seen along the adjacent right major fissure which is stabl e. There is dependent lower lobe atelectasis bilaterally. On image 78, there is a tiny nodule withi n the right lower lobe which measures between 4 and 5 mm. This is stable. No other discrete pulmona ry nodule is identified. 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 No destr uctive bone lesions. Computed tomography abdomen and pelvis findings: Imaging of the abdomen was obtained in the arterial phase. Liver: Arterial phase imaging of the liver is unremarkable. No arterial enhancing lesion. Biliary: Prior cholecystectomy. No intrahepatic or extrahepatic biliary dilatation. Pancreas: Negative. Spleen: Negative. Adrenal glands: Negative. Kidneys: Numerous cysts of varying sizes involve both kidneys. On the precontrast images, some of th marlene are mildly hyperdense consistent with hemorrhagic/proteinaceous cysts. There are bilateral nonob structing calculi. The largest stone is seen in the midpole of the left kidney measuring 7 mm. Thes e are unchanged. No suspicious enhancement. No hydronephrosis. No interval change. No ureteral di latation. Lymph nodes: Scattered subcentimeter short axis lymph nodes seen along the right common iliac chain a nd within the retroperitoneum in the aortocaval region. These nodes are stable and not enlarged by carmenza gatica. For example, a retroperitoneal node anterior to the aorta measures 7 mm on image 11. A rig ht common iliac chain node measures 10 mm on image 146 (previously 10 mm). GASTROINTESTINAL: Prior right hemicolectomy. No small bowel dilatation. GENITOURINARY: Prior prostatectomy. Penile prosthesis is in place with a reservoir noted within the left pelvis. MUSCULOSKELETAL: Degenerative changes involve the spine at multiple levels. There are compression fr acture deformities involving L5, L3, L2, and L1. When compared to the previous study, no significant interval change. No new compression fractures. No destructive bone lesions. IMPRESSION: 1. St ble 4-5 mm nodule within the right lung base. No evidence of adenopathy. 2. Changes of prior right hemicolectomy. No focal suspicious abnormality.3. Multiple bilateral lance al lesions compatible with simple and hemorrhagic/proteinaceous cysts. No significant interval eubanks e. 4. Nonobstructing renal calculi. 5. Atherosclerosis. 6. Stable retroperitoneal and right common iliac chain nodes as above. 7. Stable compression fractures of the lumbar spine as above. Report Dictated By: Ambrose Dallas at 05/23/2017 1:16 PM Report E-Signed By: Ambrose Dallas at 05/23/2017 1:46 PM WSN:[id number]
[2017-05-23 15:27] VITALS: BP 150/68
[~2017-05-26 11:25] MED LIST changes: +ALTEPLASE RECOMB 2 MG VIAL IVP PRN; +DEXTROSE 5%(*) 100 ML BAG 100 ML IVPB PRN; +HEPARIN FLSH (PORT) 500 UN/5ML IVP PRN; +IOPAMIDOL 76% 75 ML INFUS BTL 75 ML ONE; +LIDOCAINE/SOD BICARB 8.4% SYR ID PRN; +NS(*) 0.9% 100 ML BAG 100 ML IVPB PRN; +NS(*) 0.9% 500 ML BAG 500 ML IV PRN; +WATER STERILE 10 ML VIAL IVP PRN
[2017-05-26 11:36] VITALS: BP 118/65
--- NOTE | 2017-05-27 17:58 | ONCOLOGY FOLLOW UP NOTE ---
EVENT DATE: May 26, 2017 DIAGNOSES 1. Classic Hodgkin lymphoma involving the retroperitoneum. 2. Early stage colon cancer after polypectomy of cecal polyp. 3. Atrial fibrillation. 4. History of prostate cancer. 5. History of antiphospholipid antibody syndrome with history of pulmonary embolism in the past. 6. Hypertension. 7. Hypercholesterolemia. CHIEF COMPLAINT Patient is here today for followup of his Hodgkin's lymphoma. ONCOLOGY HISTORY The patient is an 87-year-old male who presented with low back pain and ankle weakness, so the patient had MRI of the lumbar spine without contrast, which was done on November 12, 2015. This MRI actually showed extensive retroperitoneal adenopathy suspicious for malignancy. There was 1.1 cm focal marrow lesion in lumbar 4, which was indeterminate. There was lumbar spondylosis resulting in foraminal stenosis, which appeared worse at lumbar 4-5 and lumbar 5-S1 on the right. The patient had a CT of chest, abdomen and pelvis with/without contrast done on November 17, 2015 which showed enlarged multinodular thyroid gland, post surgical changes from cystectomy and prostatectomy. There was massive retroperitoneal adenopathy, right common iliac lymph node measuring 3.8 cm, right iliac lymph node measured 2.6 cm. There was 9 mm hyperattenuated lesion in the dome of the spleen; could represent hemangioma or lymphangioma. There were numerous bilateral renal cysts. In the mediastinum there was 5.1 cm low dense space-occupying process in the right paratracheal region extending into the precarinal region and an additional 1.3 cm hypodensity in the subcarinal region. A bone scan was done on November 17, 2015 revealing a focal area of isotope in the left tenth costovertebral junction. Repeat CT of abdomen and pelvis with intravenous contrast done on December 05, 2015 did reveal right colonic clips, massive retroperitoneal adenopathy. The renal cyst seems to be simple in nature. The patient had a colonoscopy done on December 04, 2015 because of his history of colon polyps with retroperitoneal lymphadenopathy. There are polyps seen in the cecum, one polyp, two polyps in the ascending colon, one polyp in the descending colon, one polyp in the sigmoid colon. The cecal polyp was quite large and suspicious for neoplasm. On December 05, 2015, the patient had right colon partial resection with no evidence of residual carcinoma. The retroperitoneal lymph node biopsy came back positive for classic Hodgkin lymphoma. The pathology from the polypectomy from the colonoscopy done on December 04, 2015: The ascending polyps came back tubular adenoma; sigmoid colon polyp was tubular adenoma; the descending colon polyp was tubular adenoma ; while the cecal polyp came back positive for invasive, well-differentiated colonic adenocarcinoma. The adenocarcinoma invades into the muscularis propria. So, this will be stage T2. The patient had a 2D echocardiogram which showed normal left ventricular ejection fraction at 56%. The patient started chemotherapy with AVD with Adriamycin, vinblastine, and dacarbazine on January 05, 2016. The patient completed three cycles of AVD on March 15, 2016 and treatment was stopped because of deterioration of the left ventricular ejection fraction from 60% to 40%. The patient started treatment with brentuximab on April 20, 2016. The patient received only one cycle of brentuximab, which was stopped because of severe diarrhea with bloody stool. He stated treatment with Opdivo on May 14, 2016. The patient received four courses of Opdivo completed on June 25, 2016 and that was stopped because of severe diarrhea. The patient started treatment with bendamustine and gemcitabine on August 10, 2016. HISTORY OF PRESENT ILLNESS Patient is here today for followup of his classic Hodgkin's lymphoma. He is doing fine currently. He has occasional shortness of breath. He has back pain and he has also numbness along the right lower extremity. He has some numbness also in the fingers, but other than that he is really doing fine. He has some fatigue from his age, but generally speaking really he is doing well currently. PAST MEDICAL HISTORY 1. History of prostate cancer. 2. Antiphospholipid antibody syndrome. 3. Hyperlipidemia. 4. Hypertension. 5. History of pneumonia. 6. History of pulmonary embolism, March 2013. 7. History of GERD. 8. History of thyroid nodule. 9. History of actinic keratosis. PAST SURGICAL HISTORY 1. Cataract extraction bilaterally, December 2006. 2. Vascular surgery, September 2007. 3. Appendectomy at age [age]. 4. Cholecystectomy done laparoscopically in September 2004. 5. Bilateral inguinal hernia repairs, February 2010. 6. Prostatectomy for adenocarcinoma of the prostate, July 1996. 7. Tonsillectomy as a child. FAMILY HISTORY Negative for cancer or blood diseases. SOCIAL HISTORY The patient is with three daughters. 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 He quit smoking a long time ago. He denies any abuse of alcohol or illicit drugs. He drinks about one beer daily. CURRENT MEDICATIONS 1. Omeprazole 40 mg daily. 2. Lisinopril one tablet 5 mg daily. 3. Fish oil 1000 mg. 4. Multivitamins once daily. 5. Carvedilol 3.125 mg twice daily. 6. Probiotic one tablet daily. 7. Warfarin according to the order. 8. Calcium citrate one capsule daily. 9. Vitamin B12 at 1000 mcg one capsule daily. 10. Vitamin D3 at 1000 IU daily. ALLERGIES LEVAQUIN, CLINDAMYCIN. REVIEW OF SYSTEMS CONSTITUTIONAL: No appetite or weight change. No fever, chills or sweating. No recent infection. HEENT: Ears: No tinnitus or hearing problem. Nose: He has occasional nasal discharge. Throat: No sore throat or mouth ulcers. Eyes: No diplopia or visual changes. RESPIRATORY: Patient has occasional shortness of breath CARDIOVASCULAR: No chest pain, orthopnea, or paroxysmal nocturnal dyspnea (PND) . No edema. No palpitations. GASTROINTESTINAL: He has occasional nausea. GENITOURINARY: He has increased frequency of urine. MUSCULOSKELETAL: He has back pain. NEUROLOGICAL: Patient has numbness along the right lower extremity. HEMATOLOGIC/LYMPHATIC: He is weak, tired, and fatigued. SKIN: No skin rash or lumps. PSYCHIATRIC: No anxiety or depression. PHYSICAL EXAMINATION GENERAL: Looks stable. Well-developed, well-nourished, and in no acute distress. VITAL SIGNS: Blood pressure 118/65, pulse 78 per minute, respirations 16 per minute, temperature 96.3, pulse ox 91% on room air. HEENT: Head: Atraumatic. No sinus tenderness to palpation. Eyes: No icterus or conjunctivitis. Mouth and throat: No oral thrush or mucositis. NECK: Supple. No cervical or supraclavicular lymphadenopathy. LUNGS: Clear to auscultation and percussion bilaterally. HEART: Regular rate and rhythm. No gallops, murmurs, clicks or rubs. ABDOMEN: Soft and lax. No tenderness. No hepatosplenomegaly. No masses. EXTREMITIES: No cyanosis, clubbing or edema. LYMPHATICS: No peripheral lymphadenopathy. NEUROLOGICAL: Conscious, alert and oriented times three. No focal motor or sensory deficits. PSYCHIATRIC: Mood and affect appear normal. SKIN: No skin rash, bruise or purpuric eruption. DIAGNOSTIC DATA CBC showed a white count of 4.7, hemoglobin 11.8, hematocrit 36.6, platelets 187 ,000 and MCV is 74.3. Chem panel totally normal, except blood sugar [address] chest, abdomen and pelvis done on May 23, 2017 was stable without any evidence of progression. ASSESSMENT 1. Classic Hodgkin's lymphoma involving the retroperitoneum. Bone marrow was negative for metastasis and PET scan revealed lymphadenopathy above and below the diaphragm. Patient received chemotherapy with AVD regimen with adriamycin, vinblastine and dacarbazine, and the treatment stopped because of deterioration of the left ventricular ejection fraction to 40%. Patient showed response to the treatment. He received one cycle of brentuximab on April 20, 2016, and the patient developed severe diarrhea with the treatment so it was stopped. He started treatment with Opdivo on May 14, 2016, and he received four courses , completed June 25, 2016, and treatment stopped because of the development of severe diarrhea and deterioration of the general condition requiring hospitalization. After that patient started treatment with bendamustine and gemcitabine on August 09, 2016, and he received six cycles. [address] CT scan of the chest, abdomen and pelvis done October 25, 2016 did not show significant lymph nodes, and the gastrohepatic lymph node was stable with small periaortic lymph nodes which are also stable. His repeat CT chest, abdomen and pelvis on May 23, 2017 did not show any evidence of progression. I am planning to continue followup. I will see him again in three months with CBC, chem panel, LDH, uric acid, ESR and CT chest, abdomen and pelvis at that time. If the patient will have deterioration of progression of his lymph nodes by the CT scan then we are going to get a PET scan and resume his chemotherapy. 2. Chemotherapy-induced anemia. Current hemoglobin 11.8 g/dL which is stable. We will continue to monitor. 3. History of prostate cancer. 4. Atrial fibrillation, on treatment. 5. Early colon cancer after polypectomy of the cecal polyp done December 04, 2015, which came positive for invasive well differentiated adenocarcinoma of the colon with invasion of the muscularis propria. Partial resection of the right colon was done December 05, 2015 and it was negative for residual carcinoma. Tumor was staged as stage T2 N0 M0, for a total stage I. CEA was normal at 3.2. We will continue to monitor his CEA with his next visit. PLAN 1. Continue followup. 2. Patient to return in three months with CBC, chem panel, LDH, uric acid, ESR , and CEA and CT chest, abdomen and pelvis with IV and oral contrast. 3. Patient is to contact us for any new concern or complaints. ADRIANAD
== END 2017-06-03 14:53 | disposition home or self-care (01) ==
LOC: ONC 11:25
PROVIDERS: ATTEND Internal Medicine Hematology
DX: Z85.038 Personal history of other malignant neoplasm of large intestine (principal); C81.90 Hodgkin lymphoma, unspecified, unspecified site; R91.1 Solitary pulmonary nodule; N20.0 Calculus of kidney; I70.0 Atherosclerosis of aorta
CPT/HCPCS: 36591; 71270; 72194; 74170; 83615; 84550; 85025; G0463; J1642; Q9967; 82040; 82247; 82310; 82374; 82435; 82565; 82947; 84075; 84132; 84155; 84295; 84450; 84460; 84520; 99212

== ENCOUNTER → 2017-06-21 | Outpatient (CLI) | payer MEDICARE, OTHER ==
[2016-06-09 18:04] VITALS: BMI 21.6
[~2017-06-21] MED LIST changes: -ALTEPLASE RECOMB 2 MG VIAL IVP PRN; -DEXTROSE 5%(*) 100 ML BAG 100 ML IVPB PRN; -HEPARIN FLSH (PORT) 500 UN/5ML IVP PRN; -IOPAMIDOL 76% 75 ML INFUS BTL 75 ML ONE; -LIDOCAINE/SOD BICARB 8.4% SYR ID PRN; -NS(*) 0.9% 100 ML BAG 100 ML IVPB PRN; -NS(*) 0.9% 500 ML BAG 500 ML IV PRN; -WATER STERILE 10 ML VIAL IVP PRN
[2017-06-21 09:01] LABS: INR 3.38
== END ==
LOC: ZZSPRING 01:42
PROVIDERS: ATTEND Pharmacist Pharmacotherapy
DX: I26.99 Other pulmonary embolism without acute cor pulmonale (principal); D68.59 Other primary thrombophilia; I48.0 Paroxysmal atrial fibrillation
CPT/HCPCS: 36415; 85610

== ENCOUNTER → 2017-06-28 | Outpatient (CLI) | payer MEDICARE, OTHER ==
[2016-06-09 18:04] VITALS: BMI 21.6
[2017-06-28 08:39] LABS: INR 2.87
== END ==
LOC: ZZSPRING 00:18
PROVIDERS: ATTEND Pharmacist Pharmacotherapy
DX: D68.59 Other primary thrombophilia (principal); I48.0 Paroxysmal atrial fibrillation; I26.99 Other pulmonary embolism without acute cor pulmonale
CPT/HCPCS: 36415; 85610

== ENCOUNTER → 2017-07-19 | Outpatient (CLI) | payer MEDICARE, OTHER ==
[2016-06-09 18:04] VITALS: BMI 21.6
[~2017-07-19] MED LIST changes: +ACET-2031 PO; +CARV12.577 PO
== END ==
LOC: LAB 13:22
PROVIDERS: ATTEND Internal Medicine
DX: I10 Essential (primary) hypertension (principal)
CPT/HCPCS: 36415; 82040; 82247; 82310; 82374; 82435; 82565; 82947; 84075; 84132; 84155; 84295; 84450; 84460; 84520

== ENCOUNTER 2017-07-24 19:46 | Emergency (ER) | payer MEDICARE, OTHER ==
[2016-06-09 18:04] VITALS: Wt 78.0 kg
--- NOTE | 2017-07-24 19:48 | ER Report ---
History and Physical Time Seen By : 19:48 HPI/ROS CHIEF COMPLAINT: Diaphoresis HISTORY OF PRESENT ILLNESS: 87-year-old male with an extensive past medical history see below [facility]. He was sitting in a chair watching TV when he broke out with a profuse diaphoresis. Patient voices no chest pain, near syncope feeling. Patient was noted to be bradycardic by nursing staff with a heart rate into the 40s. He was tachypneic with a respiratory rate that was 36. Patient's blood pressure and pulse ox were unremarkable. Patient voices no other symptoms. He was reluctant to come to the hospital for evaluation. He is on chronic anticoagulation for antiphospholipid antibody and pulmonary embolisms. REVIEW OF SYSTEMS: Respiratory: No cough, no dyspnea. Cardiovascular: No chest pain, no palpitations. Gastrointestinal: No vomiting, no abdominal pain. Musculoskeletal: No back pain. Allergies: Coded Allergies: gemfibrozil (Verified Allergy, Intermediate, RASH, FATIGUE, 07/24/17) levofloxacin (Verified Allergy, Intermediate, rash, fatigue, Achilles tendon problem, 07/24/17) lovastatin (Verified Adverse Reaction, Intermediate, MYALGIA, 07/24/17) morphine (Verified Adverse Reaction, Intermediate, HALLUCINATIONS, 07/24/17 ) simvastatin (Verified Adverse Reaction, Mild, MYALGIA, 07/24/17) Home Meds Active Scripts Fish Oil/Dha/Epa (FISH OIL 1,200 MG FISH OIL) 1 Each Capsule, 1 CAP PO QDAY, # 90 CAP 4 Refills Prov:YORDY AVERY MD 06/13/17 Lactobacillus Combo No.10 (PROBIOTIC) 1 Each Capsule, 1 EACH PO QDAY, #90 CAP 1 Refill Prov:YORDY AVERY MD 06/08/17 Digoxin (DIGOXIN) 250 Mcg Tablet, 1 TAB PO QDAY, #90 TAB 1 Refill Prov:YORDY AVERY MD 06/08/17 Cholecalciferol (Vitamin D3) (VITAMIN D) 2,000 Unit Tablet, 1 TAB PO QDAY, #90 CAPSULE 4 Refills Prov:YORDY AVERY MD 05/09/17 Ibandronate Sodium (BONIVA) 150 Mg Tablet, 1 TAB PO Q30D, #4 TAB 6 Refills Prov:YORDY AVERY MD 2/5/18 Tamsulosin Hcl (FLOMAX) 0.4 Mg Cap.er.24h, 1 CAP PO QDAY, #90 CAPSULE 3 Refills Prov:YORDY AVERY MD 04/11/17 Potassium Chloride (KLOR-CON 10) 10 Meq Tablet.er, 1 TAB PO TIDCF, #90 TAB 3 Refills Prov:YORDY AVERY MD 10/12/16 Furosemide (FUROSEMIDE) 20 Mg Tablet, 1 TAB PO QDAY, #30 TAB 6 Refills Prov:YORDY AVERY MD 09/17/16 Omeprazole (OMEPRAZOLE) 20 Mg Capsule.dr, 1 CAP PO QDAY, #90 CAP 3 Refills Prov:YORDY AVERY MD 07/13/16 Cyanocobalamin (Vitamin B-12) (VITAMIN B-12) 1,000 Mcg Tablet, 1 TAB PO QDAY, # 90 TAB 3 Refills Prov:YORDY AVERY MD 07/13/16 Reported Medications Warfarin Sodium (WARFARIN SODIUM) 5 Mg Tablet, 7.5 MG PO QDAY, TAB TAKE ON DAYS TUE, AND Tuesday07/24/17 Warfarin Sodium (WARFARIN SODIUM) 5 Mg Tablet, 5 MG PO QDAY, TAB TAKE ON DAYS TUE, TU, WED, THURS, AND SAT 07/24/17 Folic Acid/Multivits-Min/Lut (MULTI-VITAMIN GUMMIES) 1 Each Tab.chew, 1 EACH PO , TAB.CHEW 07/24/17 Carvedilol (COREG) 12.5 Mg Tablet, 1 TAB PO BID, TAB 07/20/17 Acetaminophen (ACETAMINOPHEN) 325 Mg Tablet, 2 TAB PO PRN, TAB 07/20/17 Oxygen (OXYGEN) Inha, 2 L INH HS, L 03/31/17 Vit A,C & E/Lutein/Minerals (OCUVITE TABLET) 1 Each Tablet, 1 TAB PO QDAY 12/23/16 Discontinued Reported Medications Calcium Carbonate/Vitamin D3 (CALCIUM + VITAMIN D TABLET) 1 Each Tablet, 1 TAB PO QDAY 01/21/17 Discontinued Scripts Warfarin Sodium (WARFARIN SODIUM) 5 Mg Tablet, 5 MG PO QTUES, , SAT, SUN, # 105 TAB TAKE 7.5MG on MON and FRI then 5mg on other days. Prov:YORDY AVERY MD 03/03/17 Multivitamin (MULTI VITAMIN DAILY) 1 Each Tablet, 1 TAB PO QDAY, #90 TAB 3 Refills NO vitamin K in tablet Prov:YORDY AVERY MD 07/13/16 Carvedilol (CARVEDILOL) 6.25 Mg Tab, 1 TAB PO BID, #180 TAB 3 Refills Prov:YORDY AVERY MD 07/13/16 Past Medical/Surgical History PAST MEDICAL HISTORY 1. History of prostate cancer. 2. Antiphospholipid antibody syndrome. 3. Hyperlipidemia. 4. Hypertension. 5. History of pneumonia. 6. History of pulmonary embolism, March 2013. 7. History of GERD. 8. History of thyroid nodule. 9. History of actinic keratosis. PAST SURGICAL HISTORY 1. Cataract extraction bilaterally, December 2006. 2. Vascular surgery, September 2007. 3. Appendectomy at age [age]. 4. Cholecystectomy done laparoscopically in September 2004. 5. Bilateral inguinal hernia repairs, February 2010. 6. Prostatectomy for adenocarcinoma of the prostate, July 1996. 7. Tonsillectomy as a child. Reviewed Nurses Notes: Yes Old Medical Records Reviewed: Yes Hx Smoking: Yes Smoking Status: Former Smoker Exposure to Second Hand Smoke?: Yes (father smoked 1 cig per day) Hx Substance Use Disorder: No Hx Alcohol Use: No Constitutional Vital Sign - Last 24 Hours 07/24/17 07/24/17 07/24/17 07/24/17 19:57 20:15 20:25 20:30 Temp 97.7 Pulse 73 78 79 Resp 30 28 15 B/P (MAP) 109/83 114/76 (89) Pulse Ox 92 91 94 O2 Delivery Room Air 07/24/17 07/24/17 07/24/17 07/24/17 20:35 20:45 20:55 21:00 Pulse 83 ??? 78 Resp 42 39 B/P (MAP) 119/78 (92) Pulse Ox 93 93 07/24/17 07/24/17 07/24/17 21:05 21:15 21:25 Pulse 77 89 ??? Resp 31 Pulse Ox 93 Physical Exam General Appearance: The patient is alert, has no immediate need for airway protection and no current signs of toxicity. Vital signs stable, afebrile, pulse ox normal, no acute distress, skin warm, dry, pink HEENT: Pupils equal and round no injection. TMs normal, oropharynx without redness or exudate, mucous. Membranes are moist Respiratory: Chest is non tender, lungs are clear to auscultation. No wheezing or rails, chest wall nontender on palpation Cardiac: Irregular, irregular rhythm without murmur Gastrointestinal: Abdomen is soft and non tender, no masses, bowel sounds normal. Musculoskeletal: Neck: Neck is supple and non tender. No JVD, no lymphadenopathy Extremities have full range of motion and are non tender. No edema, no calf tenderness Skin: No rashes or lesions. DIFFERENTIAL DIAGNOSIS: After history and physical exam differential diagnosis was considered for chest pain including but not limited to myocardial ischemia, pericarditis pulmonary embolus, chest wall pain, pleural inflammation and pulmonary infectious causes. Medical Decision Making Data Points Result Diagram: 07/24/17202007/24/172020 Laboratory Hematology Test 07/24/17 20:21 07/24/17 20:46 Red Blood Count 4.93 M/uL (4.00-5.60) Mean Corpuscular Volume 75.1 fL (80.0-96.0) Mean Corpuscular Hemoglobin 25.2 pg (26.0-33.0) Mean Corpuscular Hemoglobin Concent 33.6 g/dL (32.0-36.0) Red Cell Distribution Width 19.3 % (11.5-14.5) Mean Platelet Volume 8.9 fL (7.2-11.1) Neutrophils (%) (Auto) 66.5 % (39.4-72.5) Lymphocytes (%) (Auto) 16.8 % (17.6-49.6) Monocytes (%) (Auto) 12.3 % (4.1-12.4) Eosinophils (%) (Auto) 3.8 % (0.4-6.7) Basophils (%) (Auto) 0.6 % (0.3-1.4) Nucleated RBC Relative Count (auto) 0.1 /100WBC Neutrophils # (Auto) 3.7 K/uL (2.0-7.4) Lymphocytes # (Auto) 0.9 K/uL (1.3-3.6) Monocytes # (Auto) 0.7 K/uL (0.3-1.0) Eosinophils # (Auto) 0.2 K/uL (0.0-0.5) Basophils # (Auto) 0.0 K/uL (0.0-0.1) Nucleated RBC Absolute Count (auto) 0.00 K/uL Prothrombin Time 28.9 seconds (12.0-14.4) Prothromb Time International Ratio 2.62 Sodium Level 139 mmol/L (137-145) Potassium Level 4.2 mmol/L (3.5-5.0) Chloride Level 104 mmol/L (98-107) Carbon Dioxide Level 20 mmol/L (22-30) Blood Urea Nitrogen 20 mg/dl (9-21) Creatinine 1.10 mg/dl (0.66-1.25) Glomerular Filtration Rate Calc > 60.0 Random Glucose 131 mg/dl (75-110) Lactate 2.3 mmol/L (0.7-2.1) Calcium Level 9.2 mg/dl (8.4-10.2) Total Bilirubin 0.5 mg/dl (0.2-1.3) Aspartate Amino Transf (AST/SGOT) 21 U/L (0-35) Alanine Aminotransferase (ALT/SGPT) 18 U/L (0-56) Alkaline Phosphatase 61 U/L (0-126) Troponin I < 0.012 ng/ml B-Type Natriuretic Peptide 541 pg/ml (0-100) Total Protein 7.0 gm/dl (6.3-8.2) Albumin 3.9 g/dl (3.5-5.0) Digoxin Level 1.3 ng/ml Digoxin Last Dose Date unk Digoxin Last Dose Time unk Urine Color Straw Urine Clarity Clear Urine pH 6.0 pH (4.8-9.5) Urine Specific [place] 1.009 Urine Protein Negative mg/dL (NEGATIVE) Urine Glucose (UA) Negative mg/dL (NEGATIVE) Urine Ketones Negative mg/dL (NEGATIVE) Urine Blood Negative (NEGATIVE) Urine Nitrite Negative (NEGATIVE) Urine Bilirubin Negative (NEGATIVE) Urine Urobilinogen Negative mg/dL (0.2-1.9) Urine Leukocyte Esterase Negative (NEGATIVE) Urine RBC 1 /HPF (0-2/HPF) Urine WBC 1 /HPF (0-5/HPF) Urine Squamous Epithelial Cells Many /LPF (</=FEW) Urine Bacteria Negative /HPF (NONE-FEW) Urine Mucus None /HPF (NONE-FEW) Chemistry Test 07/24/17 20:21 07/24/17 20:46 White Blood Count 5.6 k/uL (4.5-11.0) Red Blood Count 4.93 M/uL (4.00-5.60) Hemoglobin 12.4 g/dL (14.0-18.0) Hematocrit 37.1 % (42.0-52.0) Mean Corpuscular Volume 75.1 fL (80.0-96.0) Mean Corpuscular Hemoglobin 25.2 pg (26.0-33.0) Mean Corpuscular Hemoglobin Concent 33.6 g/dL (32.0-36.0) Red Cell Distribution Width 19.3 % (11.5-14.5) Platelet Count 171 K/uL (150-450) Mean Platelet Volume 8.9 fL (7.2-11.1) Neutrophils (%) (Auto) 66.5 % (39.4-72.5) Lymphocytes (%) (Auto) 16.8 % (17.6-49.6) Monocytes (%) (Auto) 12.3 % (4.1-12.4) Eosinophils (%) (Auto) 3.8 % (0.4-6.7) Basophils (%) (Auto) 0.6 % (0.3-1.4) Nucleated RBC Relative Count (auto) 0.1 /100WBC Neutrophils # (Auto) 3.7 K/uL (2.0-7.4) Lymphocytes # (Auto) 0.9 K/uL (1.3-3.6) Monocytes # (Auto) 0.7 K/uL (0.3-1.0) Eosinophils # (Auto) 0.2 K/uL (0.0-0.5) Basophils # (Auto) 0.0 K/uL (0.0-0.1) Nucleated RBC Absolute Count (auto) 0.00 K/uL Prothrombin Time 28.9 seconds (12.0-14.4) Prothromb Time International Ratio 2.62 Glomerular Filtration Rate Calc > 60.0 Lactate 2.3 mmol/L (0.7-2.1) Calcium Level 9.2 mg/dl (8.4-10.2) Total Bilirubin 0.5 mg/dl (0.2-1.3) Aspartate Amino Transf (AST/SGOT) 21 U/L (0-35) Alanine Aminotransferase (ALT/SGPT) 18 U/L (0-56) Alkaline Phosphatase 61 U/L (0-126) Troponin I < 0.012 ng/ml B-Type Natriuretic Peptide 541 pg/ml (0-100) Total Protein 7.0 gm/dl (6.3-8.2) Albumin 3.9 g/dl (3.5-5.0) Digoxin Level 1.3 ng/ml Digoxin Last Dose Date unk Digoxin Last Dose Time unk Urine Color Straw Urine Clarity Clear Urine pH 6.0 pH (4.8-9.5) Urine Specific [place] 1.009 Urine Protein Negative mg/dL (NEGATIVE) Urine Glucose (UA) Negative mg/dL (NEGATIVE) Urine Ketones Negative mg/dL (NEGATIVE) Urine Blood Negative (NEGATIVE) Urine Nitrite Negative (NEGATIVE) Urine Bilirubin Negative (NEGATIVE) Urine Urobilinogen Negative mg/dL (0.2-1.9) Urine Leukocyte Esterase Negative (NEGATIVE) Urine RBC 1 /HPF (0-2/HPF) Urine WBC 1 /HPF (0-5/HPF) Urine Squamous Epithelial Cells Many /LPF (</=FEW) Urine Bacteria Negative /HPF (NONE-FEW) Urine Mucus None /HPF (NONE-FEW) Coagulation Test 07/24/17 20:21 Prothrombin Time 28.9 seconds Prothromb Time International Ratio 2.62 Toxicology Test 07/24/17 20:21 Digoxin Level 1.3 ng/ml Digoxin Last Dose Date unk Digoxin Last Dose Time unk Urinalysis Test 07/24/17 20:46 Urine Color Straw Urine Clarity Clear Urine pH 6.0 pH (4.8-9.5) Urine Specific [place] 1.009 Urine Protein Negative mg/dL (NEGATIVE) Urine Glucose (UA) Negative mg/dL (NEGATIVE) Urine Ketones Negative mg/dL (NEGATIVE) Urine Blood Negative (NEGATIVE) Urine Nitrite Negative (NEGATIVE) Urine Bilirubin Negative (NEGATIVE) Urine Urobilinogen Negative mg/dL (0.2-1.9) Urine Leukocyte Esterase Negative (NEGATIVE) Urine RBC 1 /HPF (0-2/HPF) Urine WBC 1 /HPF (0-5/HPF) Urine Squamous Epithelial Cells Many /LPF (</=FEW) Urine Bacteria Negative /HPF (NONE-FEW) Urine Mucus None /HPF (NONE-FEW) EKG/Imaging EKG Interpretation 12 lead EK Rhythm: Atrial fibrillation with a rate of 91 bpm Pep: Left axis deviation QRS: Wide QRS consistent with left bundle branch block pattern ST segments: Repolarization. Abdomen bowel is consistent with left bundle branch block pattern, comparison to previous EKG dated 08/13/16, no significant change ED Course/Re-evaluation Clinical Indication for ER IV: IV Access ED Course Patient was admitted to an examination room. H&P was done. The differential diagnoses was considered. Patient with a diaphoresis. Extensive evaluation shows normal laboratory studies, chest x-ray is normal. Normal EKG without evidence of ischemia. [facility] Decision to Disposition Date: July 24, 2017 Decision to Disposition Time: 20:08 Depart Departure Latest Vital Signs Vital Signs Date Time Temp Pulse Resp B/P (MAP) Pulse Ox O2 Delivery O2 Flow Rate FiO2 07/24/17 21:25 ??? 07/24/17 21:05 31 93 07/24/17 21:00 119/78 (92) 07/24/17 19:57 97.7 Room Air Impression: Primary Impression: Diaphoresis Additional Impressions: Essential hypertension Antiphospholipid antibody syndrome Condition: Improved Disposition: HOME OR SELF-CARE Referrals: YORDY AVERY MD (PCP) Patient Instructions: GENERAL ER DISCHARGE INSTRUCTIONS Additional Instructions: Follow-up with Dr. Tello if unimproved in 2-3 days Problem Qualifiers MICHEL MACIEL DO July 24, 2017 19:48
[2017-07-24 20:35] LABS: PLATELET COUNT, AUTOMATED 171 K/uL (150-450)
[2017-07-24 20:43] LABS: INR 2.62
--- NOTE | 2017-07-24 20:47 | RADIOLOGY IMAGING REPORT ---
FACILITY: [facility] - [place] PATIENT NAME: Lyle Lange : 1930 MR: [id number] V: [id number] EXAM DATE: ORDERING PHYSICIAN: MICHEL MACIEL TECHNOLOGIST: Location: [facility] [place] Patient: Lyle Lange : 1930 Visit/Account:[id number] Date of Sevice: 07/24/2017 EXAMINATION: Portable AP Chest HISTORY: Chest pain. COMPARISON: 08/23/2016. FINDINGS: The lungs are clear. No focal consolidation or pleural effusion. No pneumothorax. Stable mild cardiac enlargement with normal pulmonary vascularity. Stable cardiomediastinal contours. Right IJ central venous port, with tip overlying the low SVC. No acute osseous findings in the chest. IMPRESSION: 1. No evidence of acute cardiopulmonary disease. 2. Mild cardiac enlargement, without evidence of active failure. Report Dictated By: Amador Holden MD at 07/24/2017 8:35 PM Report E-Signed By: Amador Holden MD at 07/24/2017 8:42 PM WSN:[id number]
[2017-07-24] MEDS ORDERED: FOLI1TAB3 PO (20:53)
[2017-07-24] MEDS ORDERED: WARF5TAB23 PO ×2 (20:58→21:01)
[2017-07-24 21:00] VITALS: BP 119/78
--- NOTE | 2017-07-24 21:23 | EKG ---
FACILITY: [facility] PATIENT NAME: SANDRA EVANGELISTA : [id number] MR: [id number] V: [id number] EXAM DATE: ORDERING PHYSICIAN: MICHEL MACIEL TECHNOLOGIST: MARVEL Test Reason : SWEATS Blood Pressure : / mmHG Vent. Rate : 091 BPM Atrial Rate : 076 BPM P-R Int : 000 ms QRS Dur : 136 ms QT Int : 382 ms P-R-T Axes : 000 -47 123 degrees QTc Int : 469 ms Atrial fibrillation Left axis deviation Left bundle branch block Abnormal ECG When compared with ECG of 13-AUG-2016 12:08, No significant change was found Confirmed by MEHDI BARBOZA ([id number]) on 07/25/2017 6:11:50 AM Referred By: Confirmed By:MEHDI BARBOZA
== END 2017-07-24 21:46 | disposition home or self-care (01) ==
LOC: ER 19:53
DX: I10 Essential (primary) hypertension (principal); R61 Generalized hyperhidrosis; D68.61 Antiphospholipid syndrome; I48.91 Unspecified atrial fibrillation; I44.7 Left bundle-branch block, unspecified; Z79.01 Long term (current) use of anticoagulants
CPT/HCPCS: 71045; 80162; 81001; 82040; 82247; 82310; 82374; 82435; 82565; 82947; 83605; 83880; 84075; 84132; 84155; 84295; 84450; 84460; 84484; 84520; 85025; 85610; 93005; 99283

== ENCOUNTER → 2017-07-26 | Outpatient (CLI) | payer MEDICARE, OTHER ==
[2016-06-09 18:04] VITALS: BMI 21.6
[~2017-07-26] MED LIST changes: +FOLI1TAB3 PO
[2017-07-26 08:56] LABS: INR 2.49
== END ==
LOC: ZZSPRING 01:25
PROVIDERS: ATTEND Pharmacist Pharmacotherapy
DX: I26.99 Other pulmonary embolism without acute cor pulmonale (principal); D68.59 Other primary thrombophilia; I48.0 Paroxysmal atrial fibrillation
CPT/HCPCS: 36415; 85610

== ENCOUNTER 2017-08-18 15:55 | Outpatient (RCR) | payer MEDICARE, OTHER ==
[2016-06-09 18:04] VITALS: Wt 79.1 kg
[2017-08-17 09:48] VITALS: BP 107/77
[2017-08-17 10:06] LABS: PLATELET COUNT, AUTOMATED 185 K/uL (150-450)
--- NOTE | 2017-08-17 16:08 | RADIOLOGY IMAGING REPORT ---
[place] [facility] [place] NAME: Lyle Lange : 1930 MR: [id number] V: [id number] EXAM DATE: ORDERING PHYSICIAN: DEANN SIDDIQUI TECHNOLOGIST: [place] [facility] [place] Lyle [place] : 1930 Visit/Account:[id number] Date of Sevice: 08/17/2017 CT CHEST ABDOMEN PELVIS W & W/O HISTORY: Colon cancer follow-up ADDITIONAL HISTORY: None. TECHNIQUE: Pre and post administration of IV contrast axial images acquired through the chest abdome n and pelvis during the portal venous phase. Coronal and sagittal reformatting was also performed. D ose Lowering Technique One of the following dose optimization techniques was utilized in the performance of this exam: Autom ated exposure control; adjustment of the mA and/or kV according to the patient's size; or use of an i terative reconstruction technique. Specific details can be referenced in the facility's radiology C T exam operational policy. CONTRAST: 75 mL Isovue-370 COMPARISON: May 23, 2017 FINDINGS: CHEST: Lungs/Pleura: Stable bulla within the right pulmonary apex appears unchanged. Mild biapical pleural plaque or scarring also again noted. Mild thickening of the major fissure again noted. Chronic brendan ear changes in the lower lobes also appears stable. For a 5 mm noncalcified nodule right lower lobe has remained stable best seen on image 81 Mediastinum/lymph nodes: Negative. Heart/vessels: Extensive coronary artery calcifications are noted. There is an implanted right-side d port distal tip in superior vena cava. Bones/soft tissues: Heterogeneous thyroid nodules again noted ABDOMEN AND PELVIS: Hepatobiliary: Postsurgical changes from a cholecystectomy Spleen: Negative. Pancreas: Negative. Adrenals: Negative. Kidneys ureters and bladder : Numerous bilateral renal cysts. Nonobstructing calculi identified in b oth renal collecting systems Genitalia: Prior prostatectomy with penile prosthesis GI: Postsurgical changes from a right hemicolectomy, duodenal diverticulum Vessels/spaces/nodes: Moderate vascular calcifications in the abdominal aorta and branch vessels. M ild stable retroperitoneal and right common iliac lymph nodes all measuring less than 1 cm in short a xis Bones/soft tissues: Spondylotic changes throughout the visualized thoracolumbar spine multiple compr ession fractures in the lumbar spine appear stable. Additional findings: None pertinent. IMPRESSION: Chronic lung changes again seen including a stable 5 mm noncalcified nodule in the right lower lobe Heterogeneous thyroid nodules again identified. Evaluation with thyroid ultrasound may be helpful de pending upon the clinical presentation Nonobstructing calculi in both renal collecting systems Post surgical changes from a right hemicolectomy. Stable small retroperitoneal and right common iliac lymph nodes. Additional chronic findings as described Report Dictated By: Caryl Mims MD at 08/17/2017 3:23 PM Report E-Signed By: Caryl Mims MD at 08/17/2017 4:03 PM WSN:[email or web address]
[~2017-08-18 15:55] MED LIST changes: +ALTEPLASE RECOMB 2 MG VIAL IVP PRN; +DEXTROSE 5%(*) 100 ML BAG 100 ML IVPB PRN; +HEPARIN FLSH (PORT) 500 UN/5ML IVP PRN; +IOPAMIDOL 76% 75 ML INFUS BTL 75 ML ONE; +LIDOCAINE/SOD BICARB 8.4% SYR ID PRN; +NS(*) 0.9% 100 ML BAG 100 ML IVPB PRN; +NS(*) 0.9% 500 ML BAG 500 ML IV PRN; +WATER FOR INJ,STERILE 20 ML IVP PRN
[2017-08-18 16:04] VITALS: BP 113/63
--- NOTE | 2017-08-18 18:03 | ONCOLOGY FOLLOW UP NOTE ---
EVENT DATE: August 18, 2017 DIAGNOSES 1. Classic Hodgkin lymphoma involving the retroperitoneum. 2. Early stage colon cancer after polypectomy of cecal polyp. 3. Atrial fibrillation. 4. History of prostate cancer. 5. History of antiphospholipid antibody syndrome with history of pulmonary embolism in the past. 6. Hypertension. 7. Hypercholesterolemia. CHIEF COMPLAINT Patient is here today for followup of his Hodgkin's lymphoma. ONCOLOGY HISTORY The patient is an 87-year-old male who presented with low back pain and ankle weakness, so the patient had MRI of the lumbar spine without contrast, which was done on November 12, 2015. This MRI actually showed extensive retroperitoneal adenopathy suspicious for malignancy. There was 1.1 cm focal marrow lesion in lumbar 4, which was indeterminate. There was lumbar spondylosis resulting in foraminal stenosis, which appeared worse at lumbar 4-5 and lumbar 5-S1 on the right. The patient had a CT of chest, abdomen and pelvis with/without contrast done on November 17, 2015 which showed enlarged multinodular thyroid gland, post surgical changes from cystectomy and prostatectomy. There was massive retroperitoneal adenopathy, right common iliac lymph node measuring 3.8 cm, right iliac lymph node measured 2.6 cm. There was 9 mm hyperattenuated lesion in the dome of the spleen; could represent hemangioma or lymphangioma. There were numerous bilateral renal cysts. In the mediastinum there was 5.1 cm low dense space-occupying process in the right paratracheal region extending into the precarinal region and an additional 1.3 cm hypodensity in the subcarinal region. A bone scan was done on November 17, 2015 revealing a focal area of isotope in the left tenth costovertebral junction. Repeat CT of abdomen and pelvis with intravenous contrast done on December 05, 2015 did reveal right colonic clips, massive retroperitoneal adenopathy. The renal cyst seems to be simple in nature. The patient had a colonoscopy done on December 04, 2015 because of his history of colon polyps with retroperitoneal lymphadenopathy. There are polyps seen in the cecum, one polyp, two polyps in the ascending colon, one polyp in the descending colon, one polyp in the sigmoid colon. The cecal polyp was quite large and suspicious for neoplasm. On December 05, 2015, the patient had right colon partial resection with no evidence of residual carcinoma. The retroperitoneal lymph node biopsy came back positive for classic Hodgkin lymphoma. The pathology from the polypectomy from the colonoscopy done on December 04, 2015: The ascending polyps came back tubular adenoma; sigmoid colon polyp was tubular adenoma; the descending colon polyp was tubular adenoma ; while the cecal polyp came back positive for invasive, well-differentiated colonic adenocarcinoma. The adenocarcinoma invades into the muscularis propria. So, this will be stage T2. The patient had a 2D echocardiogram which showed normal left ventricular ejection fraction at 56%. The patient started chemotherapy with AVD with Adriamycin, vinblastine, and dacarbazine on January 05, 2016. The patient completed three cycles of AVD on March 15, 2016 and treatment was stopped because of deterioration of the left ventricular ejection fraction from 60% to 40%. The patient started treatment with brentuximab on April 20, 2016. The patient received only one cycle of brentuximab, which was stopped because of severe diarrhea with bloody stool. He stated treatment with Opdivo on May 14, 2016. The patient received four courses of Opdivo completed on June 25, 2016 and that was stopped because of severe diarrhea. The patient started treatment with bendamustine and gemcitabine on August 10, 2016. Patient received six cycles of bendamustine and gemcitabine. HISTORY OF PRESENT ILLNESS Patient is here today for followup of his Hodgkin's lymphoma. He is doing fine currently. He has mild sweating at night sometimes. He has exertional shortness of breath. He has occasional nausea. He has tingling and numbness in the feet sometimes. He is weak, tired and fatigued, but other than that he is stable. PAST MEDICAL HISTORY 1. History of prostate cancer. 2. Antiphospholipid antibody syndrome. 3. Hyperlipidemia. 4. Hypertension. 5. History of pneumonia. 6. History of pulmonary embolism, March 2013. 7. History of GERD. 8. History of thyroid nodule. 9. History of actinic keratosis. PAST SURGICAL HISTORY 1. Cataract extraction bilaterally, December 2006. 2. Vascular surgery, September 2007. 3. Appendectomy at age [age]. 4. Cholecystectomy done laparoscopically in September 2004. 5. Bilateral inguinal hernia repairs, February 2010. 6. Prostatectomy for adenocarcinoma of the prostate, July 1996. 7. Tonsillectomy as a child. FAMILY HISTORY Negative for cancer or blood diseases. SOCIAL HISTORY The patient is with three daughters. 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 He quit smoking a long time ago. He denies any abuse of alcohol or illicit drugs. He drinks about one beer daily. CURRENT MEDICATIONS 1. Omeprazole 40 mg daily. 2. Lisinopril one tablet 5 mg daily. 3. Fish oil 1000 mg. 4. Multivitamins once daily. 5. Carvedilol 3.125 mg twice daily. 6. Probiotic one tablet daily. 7. Warfarin according to the order. 8. Calcium citrate one capsule daily. 9. Vitamin B12 at 1000 mcg one capsule daily. 10. Vitamin D3 at 1000 IU daily. ALLERGIES LEVAQUIN, CLINDAMYCIN. REVIEW OF SYSTEMS CONSTITUTIONAL: No appetite or weight change. No fever, chills. Patient has some night sweats. No recent infection. HEENT: Ears: No tinnitus or hearing problem. Nose: He has occasional nasal discharge. Throat: No sore throat or mouth ulcers. Eyes: No diplopia or visual changes. RESPIRATORY: Patient has shortness of breath CARDIOVASCULAR: No chest pain, orthopnea, or paroxysmal nocturnal dyspnea (PND) . No edema. No palpitations. GASTROINTESTINAL: He has occasional nausea. GENITOURINARY: He has increased frequency of urine. MUSCULOSKELETAL: He has back pain. NEUROLOGICAL: Patient has numbness in the feet. HEMATOLOGIC/LYMPHATIC: He is weak, tired, and fatigued. SKIN: No skin rash or lumps. PSYCHIATRIC: No anxiety or depression. PHYSICAL EXAMINATION GENERAL: Looks stable. Well-developed, well-nourished, and in no acute distress. VITAL SIGNS: Blood pressure 113/63, pulse 103 per minute, respirations 16 per minute, temperature 96.9, pulse ox 93% on room air. HEENT: Head: Atraumatic. No sinus tenderness to palpation. Eyes: No icterus or conjunctivitis. Mouth and throat: No oral thrush or mucositis. NECK: Supple. No cervical or supraclavicular lymphadenopathy. LUNGS: Clear to auscultation and percussion bilaterally. HEART: Regular rate and rhythm. No gallops, murmurs, clicks or rubs. ABDOMEN: Soft and lax. No tenderness. No hepatosplenomegaly. No masses. EXTREMITIES: No cyanosis, clubbing or edema. LYMPHATICS: No peripheral lymphadenopathy. NEUROLOGICAL: Conscious, alert and oriented times three. No focal motor or sensory deficits. PSYCHIATRIC: Mood and affect appear normal. SKIN: No skin rash, bruise or purpuric eruption. DIAGNOSTIC DATA CBC showed a white count of 5.8, hemoglobin 12.1, hematocrit 37.3, platelets 185 ,000. Chem panel totally normal except carbon dioxide 21. CEA is normal at 2.6. CT chest, abdomen and pelvis done on August 17, 2017 showed a stable 5 mm noncalcified nodule in the right lower lobe of the lung. There was stable heterogeneous thyroid nodules. There nonobstructing calculi in both renal collecting systems. There are small retroperitoneal and right common iliac lymph nodes less than 1 cm in size. ASSESSMENT 1. Classic Hodgkin's lymphoma involving the retroperitoneum. Bone marrow was negative for metastasis and PET scan revealed lymphadenopathy above and below the diaphragm. Patient received chemotherapy with AVD regimen with adriamycin, vinblastine and dacarbazine, and the treatment stopped because of deterioration of the left ventricular ejection fraction to 40%. Patient showed response to that treatment. He received one cycle of brentuximab on April 20, 2016, and the patient developed severe diarrhea with treatment so it was stopped. He started treatment with Opdivo on May 14, 2016, and he received four courses, completed June 25, 2016, and treatment stopped because of the development of severe diarrhea and deterioration of the general condition requiring hospitalization. After that patient started treatment with bendamustine and gemcitabine on August 09, 2016, and he received six cycles. His CT chest, abdomen and pelvis done October 25, 2016 did not show significant lymph nodes, and the gastrohepatic lymph node was stable at 1.4 cm with small periaortic lymph nodes which are also stable. His current CT chest, abdomen and pelvis done on August showed nonsignificant retroperitoneal and right common iliac lymph node less than 1 cm. Patient is doing fine currently. I am planning to continue followup. I will see him again in three months with CBC, chem panel, LDH, uric acid, ESR, and I will repeat his CT chest, abdomen and pelvis at that time. So far patient is in remission. 2. Chemotherapy-induced anemia, is getting better. Current hemoglobin 12.1. We will continue to monitor. 3. History of prostate cancer. 4. Atrial fibrillation. 5. Early colon cancer after polypectomy of the cecal polyp done December 04, 2015, which came back positive for invasive well differentiated adenocarcinoma of the colon with invasion of the muscularis propria. Partial resection of the right colon was done December 05, 2015 and it was negative for residual carcinoma. Tumor was staged as stage T2 N0 M0, stage I. CEA currently is 2.6. We will continue to monitor his CEA every three months. PLAN 1. Continue followup. 2. Patient to return in three months with CBC, chem panel, LDH, uric acid, ESR , CT chest, abdomen and pelvis with IV and oral contrast and CEA. . 3. Patient is to contact us for any new concern or complaints. MAINOR
== END 2017-08-19 10:10 | disposition home or self-care (01) ==
LOC: ONC 15:55
PROVIDERS: ATTEND Internal Medicine Hematology
DX: C85.93 Non-Hodgkin lymphoma, unspecified, intra-abdominal lymph nodes (principal); D64.81 Anemia due to antineoplastic chemotherapy; C18.9 Malignant neoplasm of colon, unspecified; Z85.46 Personal history of malignant neoplasm of prostate; I48.91 Unspecified atrial fibrillation; I10 Essential (primary) hypertension; E78.00 Pure hypercholesterolemia, unspecified; Z87.891 Personal history of nicotine dependence; Z79.899 Other long term (current) drug therapy; R53.1 Weakness; R53.83 Other fatigue
CPT/HCPCS: 71260; 74177; 82378; 83615; 84550; 85025; 85651; G0463; J1642; Q9967; 82040; 82247; 82310; 82374; 82435; 82565; 82947; 84075; 84132; 84155; 84295; 84450; 84460; 84520; 99212

== ENCOUNTER → 2017-08-23 | Outpatient (CLI) | payer MEDICARE, OTHER ==
[2016-06-09 18:04] VITALS: BMI 21.6
[~2017-08-23] MED LIST changes: -ALTEPLASE RECOMB 2 MG VIAL IVP PRN; -DEXTROSE 5%(*) 100 ML BAG 100 ML IVPB PRN; -HEPARIN FLSH (PORT) 500 UN/5ML IVP PRN; -IOPAMIDOL 76% 75 ML INFUS BTL 75 ML ONE; -LIDOCAINE/SOD BICARB 8.4% SYR ID PRN; -NS(*) 0.9% 100 ML BAG 100 ML IVPB PRN; -NS(*) 0.9% 500 ML BAG 500 ML IV PRN; -WATER FOR INJ,STERILE 20 ML IVP PRN
[2017-08-23 09:21] LABS: INR 2.64
== END ==
LOC: LAB 00:43
PROVIDERS: ATTEND Pharmacist Pharmacotherapy
DX: I81 Portal vein thrombosis (principal); Z86.711 Personal history of pulmonary embolism
CPT/HCPCS: 36415; 85610

== ENCOUNTER → 2017-09-06 | Outpatient (CLI) | payer MEDICARE, OTHER ==
[2016-06-09 18:04] VITALS: BMI 21.6
[~2017-09-06] MED LIST changes: +DIGO125T73 PO
--- NOTE | 2017-09-06 13:07 | RADIOLOGY IMAGING REPORT ---
FACILITY: [facility] - [place] PATIENT NAME: Lyle Lange : 1930 MR: [id number] V: [id number] EXAM DATE: ORDERING PHYSICIAN: YORDY AVERY TECHNOLOGIST: Location: [facility] Patient: Lyle Lange : 1930 Visit/Account:[id number] Date of Sevice: 09/06/2017 THYROID HISTORY: nodule COMPARISON: April 07, 2010 FINDINGS: SIZE: Right lobe: 4.7 x 1.6 x 1.4 cm Left lobe: 5.5 x 2.1 x 1.9 cm Isthmus: 4 mm PARENCHYMA: Homogeneous. NODULES: Right lobe: * Multiple hypoechoic nodules and some partially cystic nodules throughout the right lobe all measur ing less than 1 cm. Left lobe: * In the inferior aspect of the left lobe there is a solid mildly complex hypoechoic nodule measurin g 2.3 cm in diameter. This is increased in size when compared the prior study . * In the mid to inferior left lobe there is a well-circumscribed isoechoic nodule measuring 1.2 cm in diameter. * The medial aspect of the mid lobe is a 1 cm well-circumscribed hypoechoic nodule * In the mid to upper left lobe there is a 1.7 cm slightly complex isoechoic nodule. This is also s lightly increased when compared the prior study * In the upper left lobe there is a 1.8 cm well-circumscribed isoechoic nodule. This is relatively stable when compared the prior study Isthmus: * None discrete. VASCULARITY: Within normal limits. ADDITIONAL FINDINGS: None. IMPRESSION: There are bilateral solid thyroid nodules. All of the nodules on the right measure less than 1 cm. There are two nodules on the left that have increased in size one measuring 2.3 cm in diameter in the inferior pole on the left and one measuring 1.7 cm in diameter in the mid to upper pole and the left . Ultrasound-guided fine-needle aspiration of these nodules recommended REFERENCE: 2015 [place] [employer] Management Guidelines for Adult Patients with Thyroid Nodules and D ifferentiated Thyroid Cancer: The [place] [employer] Guidelines Task Force on Thyroid Nodul es and Differentiated Thyroid Cancer. SONOGRAPHIC PATTERNS: * Benign: Purely cystic nodules (no solid component); estimated risk of malignancy <1 percent; no bi opsy recommended. * Very Low Suspicion: Spongiform or partially cystic nodules without any of the sonographic features described in low, intermediate, or high suspicion patterns; estimated risk of malignancy <3 percent; consider FNA at > 2 cm (Observation without FNA is also a reasonable option). * Low Suspicion: Isoechoic or hyperechoic solid nodule, or partially cystic nodule with eccentric so lid areas, without microcalcification, irregular margin or ETE (extra-thyroidal extension), or taller than wide shape; estimated risk of malignancy 5-10 percent; recommend FNA at >1.5 cm. * Intermediate Suspicion: Hypoechoic solid nodule with smooth margins without microcalcifications, E TE (extra-thyroidal extension), or taller than wide shape; estimated risk of malignancy 10-20 percent ; recommend FNA at > 1 cm. * High Suspicion: Solid hypoechoic nodule or solid hypoechoic component of a partially cystic nodule with one or more of the following features: irregular margins (infiltrative, microlobulated), microc alcifications, taller than wide shape, rim calcifications with small extrusive soft tissue component, evidence of ETE (extra-thyroidal extension); estimated risk of malignancy >70-90 percent; recommend FNA at > 1 cm. NOTES: * Although a sonographically suspicious subcentimeter thyroid nodule without evidence of extrathyroi jaci extension or sonographically suspicious lymph nodes may be observed with close sonographic follow -up rather than pursuing immediate FNA, patient age and preference may modify decision-making. A > 50% interval increase in nodule volume and/or development of new suspicious sonographic features are felt to be a valid reasons for potential re-aspiration of a nodule previously shown to have benig n FNA cytology. Report Dictated By: Caryl Mims MD at 09/07/19 8 12:53 PM Report E-Signed By: Caryl Mims MD at 09/06/2017 1:04 PM WSN:[email or web address]
== END ==
LOC: US 01:07
PROVIDERS: ATTEND Internal Medicine
DX: E04.2 Nontoxic multinodular goiter (principal)
CPT/HCPCS: 76536

== ENCOUNTER → 2017-09-20 | Outpatient (CLI) | payer MEDICARE, OTHER ==
[2016-06-09 18:04] VITALS: BMI 21.6
[2017-09-20 08:53] LABS: INR 2.95
== END ==
LOC: ZZSPRING 00:18
PROVIDERS: ATTEND Pharmacist Pharmacotherapy
DX: I25.9 Chronic ischemic heart disease, unspecified (principal); D68.59 Other primary thrombophilia
CPT/HCPCS: 36415; 85610

== ENCOUNTER → 2017-10-03 | Outpatient (CLI) | payer MEDICARE, OTHER ==
[2016-06-09 18:04] VITALS: BMI 21.6
[2017-10-03 08:41] LABS: INR 1.09
--- NOTE | 2017-10-03 15:29 | RADIOLOGY IMAGING REPORT ---
FACILITY: [facility] PATIENT NAME: Lyle Lange : 1930 MR: [id number] V: [id number] EXAM DATE: ORDERING PHYSICIAN: YORDY AVERY TECHNOLOGIST: Location: [facility] - [place] Patient: Lyle Lange : 1930 Visit/Account:[id number] Date of Sevice: 10/03/2017 Exam type: THYROID BIOPSY FINE NEEDLE ASP History: thyroid nodules. Comparison: Thyroid ultrasound September 06, 2017. Findings: Informed consent was obtained. The left side of the patient's neck was prepped and draped usual ster ile fashion. Local anesthesia was accomplished 1% lidocaine. Under sonographic guidance four 25-gau ge FNA biopsies were obtained through the solid hypoechoic mass inferior aspect of the left lobe and an additional four 25-gauge FNA biopsies were obtained through the hypoechoic nodule in the mid super ior left lobe samples were given to the geospatial technologist for processing. The procedure was acc omplished without apparent complication IMPRESSION: 1. Successful sonographically guided FNA biopsy of two separate left-sided thyroid nodules Report Dictated By: Caryl Mims MD at 10/03/2017 3:23 PM Report E-Signed By: Caryl Mims MD at 10/03/2017 3:25 PM WSN:[email or web address]
== END ==
LOC: US 09-14 01:38
PROVIDERS: ATTEND Internal Medicine
DX: E04.2 Nontoxic multinodular goiter (principal); Z86.711 Personal history of pulmonary embolism
CPT/HCPCS: 10022; 36415; 76942; 85610; 88104; 88172

== ENCOUNTER → 2017-10-05 | Outpatient (CLI) | payer MEDICARE, OTHER ==
[2016-06-09 18:04] VITALS: BMI 21.6
[~2017-10-05] MED LIST changes: +CALC-707 PO
== END ==
LOC: LAB 10:31
PROVIDERS: ATTEND Internal Medicine
DX: E04.2 Nontoxic multinodular goiter (principal)
CPT/HCPCS: 36415; 84436; 84443; 84481

== ENCOUNTER 2017-10-06 10:41 | Emergency (ER) | payer MEDICARE, OTHER ==
[2016-06-09 18:04] VITALS: Wt 80.7 kg
[~2017-10-06 10:41] MED LIST changes: -CALC-707 PO
--- NOTE | 2017-10-06 11:00 | ER Report ---
History and Physical Time Seen By : 10:59 Hx. of Stated Complaint: PT PRESENTS FROM [place] WITH C/O SOB, HAS BEEN OFF WARFARIN FOR 5 DAYS, FOR A BX. NO CP HPI/ROS CHIEF COMPLAINT: Dyspnea HISTORY OF PRESENT ILLNESS: This is an 87-year-old male who presents to the emergency department from [place] for dyspnea. The patient has a history of lymphoma, blood clots and has been on Coumadin , 5 days ago his Coumadin was stopped for a thyroid biopsy, was restarted immediately after the biopsy was performed. The biopsy was negative for cancer. The patient has been back on Coumadin for a couple of days however last night he began to have some dyspnea while exercising, nothing that was unusual. Patient states that he's had continued dyspnea throughout the day, was noted to have an SPO2 in the mid 80s at spring. Subsequently the patient was sent to the emergency department for further evaluation. REVIEW OF SYSTEMS: Constitutional: No fever, no chills. Eyes: No discharge. ENT: No sore throat. Cardiovascular: No chest pain, no palpitations. Respiratory: As above. Gastrointestinal: No abdominal pain, no vomiting. Genitourinary: No hematuria. Musculoskeletal: No back pain. Skin: No rashes. Neurological: No headache. Allergies: Coded Allergies: gemfibrozil (Verified Allergy, Intermediate, RASH, FATIGUE, 10/06/17) levofloxacin (Verified Allergy, Intermediate, rash, fatigue, Achilles tendon problem, 10/06/17) lovastatin (Verified Adverse Reaction, Intermediate, MYALGIA, 10/06/17) morphine (Verified Adverse Reaction, Intermediate, HALLUCINATIONS, 10/06/17) simvastatin (Verified Adverse Reaction, Mild, MYALGIA, 10/06/17) Home Meds Active Scripts Warfarin Sodium (WARFARIN SODIUM) 5 Mg Tablet, 1-1.5 MG PO QDAY for 90 Days, # 102 TAB 2 Refills Prov:YORDY AVERY MD 09/22/17 Carvedilol (COREG) 12.5 Mg Tablet, 1 TAB PO BID, #60 TAB 4 Refills Prov:YORDY AVERY MD 07/27/17 Fish Oil/Dha/Epa (FISH OIL 1,200 MG FISH OIL) 1 Each Capsule, 1 CAP PO QDAY, # 90 CAP 4 Refills Prov:YORDY AVERY MD 06/13/17 Lactobacillus Combo No.10 (PROBIOTIC) 1 Each Capsule, 1 EACH PO QDAY, #90 CAP 1 Refill Prov:YORDY AVERY MD 06/08/17 Cholecalciferol (Vitamin D3) (VITAMIN D) 2,000 Unit Tablet, 1 TAB PO QDAY, #90 CAPSULE 4 Refills Prov:YORDY AVERY MD 05/09/17 Ibandronate Sodium (BONIVA) 150 Mg Tablet, 1 TAB PO Q30D, #4 TAB 6 Refills Prov:YORDY AVERY MD 04/11/17 Tamsulosin Hcl (FLOMAX) 0.4 Mg Cap.er.24h, 1 CAP PO QDAY, #90 CAPSULE 3 Refills Prov:YORDY AVERY MD 04/11/17 Potassium Chloride (KLOR-CON 10) 10 Meq Tablet.er, 1 TAB PO TIDCF, #90 TAB 3 Refills Prov:YORDY AVERY MD 10/12/16 Furosemide (FUROSEMIDE) 20 Mg Tablet, 1 TAB PO QDAY, #30 TAB 6 Refills Prov:YORDY AVERY MD 09/17/16 Omeprazole (OMEPRAZOLE) 20 Mg Capsule.dr, 1 CAP PO QDAY, #90 CAP 3 Refills Prov:YORDY AVERY MD 07/13/16 Cyanocobalamin (Vitamin B-12) (VITAMIN B-12) 1,000 Mcg Tablet, 1 TAB PO QDAY, # 90 TAB 3 Refills Prov:YORDY AVERY MD 07/13/16 Reported Medications Ondansetron (ZOFRAN ODT) 4 Mg Tab.rapdis, 8 MG PO Q8H, TAB.CRYSTAL 10/06/17 Digoxin (DIGOXIN) 125 Mcg Tablet, 62.5 MCG PO 10/06/17 Calcium Carbonate (ANTACID) 300 Mg Tab.chew, 1500 MG PO q2,prn, TAB.CHEW 10/06/17 Folic Acid/Multivits-Min/Lut (MULTI-VITAMIN GUMMIES) 1 Each Tab.chew, 1 EACH PO , TAB.CHEW 07/24/17 Acetaminophen (ACETAMINOPHEN) 325 Mg Tablet, 2 TAB PO PRN, TAB 07/20/17 Oxygen (OXYGEN) Inha, 2 L INH HS, L 03/31/17 Vit A,C & E/Lutein/Minerals (OCUVITE TABLET) 1 Each Tablet, 1 TAB PO QDAY 12/23/16 Discontinued Scripts Digoxin (DIGOXIN) 125 Mcg Tablet, 1 TAB PO QDAY, #90 TAB 3 Refills Prov:YORDY AVERY MD 08/30/17 Past Medical/Surgical History The patient has a past medical and surgical history of neuropathy, abnormal stress test, atrial fibrillation, history of smoking, bilateral pulmonary emboli , small bowel obstruction, GERD, inguinal hernia repair bilaterally, chronic back pain, wears reading glasses, hard of hearing, prostatectomy, Hodgkin's lymphoma, artificial urinary sphincter, tonsillectomy, cataract surgery. Reviewed Nurses Notes: Yes Hx Smoking: Yes Smoking Status: Former Smoker Exposure to Second Hand Smoke?: Yes (father smoked 1 cig per day) Hx Substance Use Disorder: No Hx Alcohol Use: No Constitutional Vital Sign - Last 24 Hours 10/06/17 10/06/17 10/06/17 10/06/17 10:50 10:53 10:56 11:00 Temp 97.3 Pulse 91 79 Resp 20 46 B/P (MAP) 109/69 109/69 (82) 95/63 (74) Pulse Ox 93 90 10/06/17 10/06/17 10/06/17 10/06/17 11:11 11:16 11:26 11:30 Pulse 71 68 Resp 11 65 B/P (MAP) 92/66 (75) Pulse Ox 89 O2 Flow Rate 2.0 10/06/17 10/06/17 10/06/17 10/06/17 11:41 11:56 12:24 12:26 Pulse 73 72 75 Resp 20 26 32 B/P (MAP) 101/68 (79) Pulse Ox 93 95 10/06/17 10/06/17 10/06/17 10/06/17 12:30 12:35 13:00 13:05 Pulse ??? 83 Resp 21 B/P (MAP) 88/72 (77) 99/65 (76) Pulse Ox 96 10/06/17 10/06/17 10/06/17 10/06/17 13:30 13:35 14:00 14:05 Pulse 87 Resp 31 26 B/P (MAP) 103/75 (84) 112/76 (88) Pulse Ox 93 Physical Exam General Appearance: The patient is alert, has no immediate need for airway protection and no signs of toxicity. Eyes: Pupils equal and round no pallor or injection. ENT, Mouth: Mucous membranes are moist. No carotid bruits. Respiratory: There are no retractions, lungs are clear to auscultation. Cardiovascular: Regular rate and rhythm, no murmurs, clicks or rubs. Gastrointestinal: Abdomen is soft and non tender, no masses, bowel sounds normal. No abdominal bruits. Neurological: Alert and oriented 4. Moving all extremities. Following all commands. No focal neuro deficits. Skin: Warm and dry, no rashes. Musculoskeletal: Neck is supple non tender. Extremities are nontender, nonswollen and have full range of motion. DIFFERENTIAL DIAGNOSIS: After history and physical exam differential diagnosis was considered for shortness of breath including but not limited to pulmonary infectious process, COPD, asthma, pulmonary embolus and congestive heart failure. Medical Decision Making Data Points Result Diagram: 10/06/17 1110 10/06/17 1110 Laboratory Hematology Test 10/06/17 11:10 Red Blood Count 4.53 M/uL (4.00-5.60) Mean Corpuscular Volume 76.0 fL (80.0-96.0) Mean Corpuscular Hemoglobin 24.9 pg (26.0-33.0) Mean Corpuscular Hemoglobin Concent 32.7 g/dL (32.0-36.0) Red Cell Distribution Width 19.2 % (11.5-14.5) Mean Platelet Volume 8.8 fL (7.2-11.1) Neutrophils (%) (Auto) 69.7 % (39.4-72.5) Lymphocytes (%) (Auto) 15.6 % (17.6-49.6) Monocytes (%) (Auto) 11.7 % (4.1-12.4) Eosinophils (%) (Auto) 2.4 % (0.4-6.7) Basophils (%) (Auto) 0.6 % (0.3-1.4) Nucleated RBC Relative Count (auto) 0.0 /100WBC Neutrophils # (Auto) 3.3 K/uL (2.0-7.4) Lymphocytes # (Auto) 0.7 K/uL (1.3-3.6) Monocytes # (Auto) 0.6 K/uL (0.3-1.0) Eosinophils # (Auto) 0.1 K/uL (0.0-0.5) Basophils # (Auto) 0.0 K/uL (0.0-0.1) Nucleated RBC Absolute Count (auto) 0.00 K/uL Prothrombin Time 16.2 seconds (12.0-14.4) Prothromb Time International Ratio 1.29 Activated Partial Thromboplast Time 39 seconds (23-35) Sodium Level 140 mmol/L (137-145) Potassium Level 4.2 mmol/L (3.5-5.0) Chloride Level 106 mmol/L (98-107) Carbon Dioxide Level 23 mmol/L (22-30) Blood Urea Nitrogen 21 mg/dl (9-21) Creatinine 1.10 mg/dl (0.66-1.25) Glomerular Filtration Rate Calc > 60.0 Random Glucose 86 mg/dl (75-110) Calcium Level 9.6 mg/dl (8.4-10.2) Total Bilirubin 1.0 mg/dl (0.2-1.3) Aspartate Amino Transf (AST/SGOT) 24 U/L (0-35) Alanine Aminotransferase (ALT/SGPT) 18 U/L (0-56) Alkaline Phosphatase 37 U/L (0-126) Troponin I < 0.012 ng/ml Total Protein 4.4 g/dl (6.3-8.2) Albumin 4.1 g/dl (3.5-5.0) Chemistry Test 10/06/17 11:10 White Blood Count 4.8 k/uL (4.5-11.0) Red Blood Count 4.53 M/uL (4.00-5.60) Hemoglobin 11.3 g/dL (14.0-18.0) Hematocrit 34.5 % (42.0-52.0) Mean Corpuscular Volume 76.0 fL (80.0-96.0) Mean Corpuscular Hemoglobin 24.9 pg (26.0-33.0) Mean Corpuscular Hemoglobin Concent 32.7 g/dL (32.0-36.0) Red Cell Distribution Width 19.2 % (11.5-14.5) Platelet Count 175 K/uL (150-450) Mean Platelet Volume 8.8 fL (7.2-11.1) Neutrophils (%) (Auto) 69.7 % (39.4-72.5) Lymphocytes (%) (Auto) 15.6 % (17.6-49.6) Monocytes (%) (Auto) 11.7 % (4.1-12.4) Eosinophils (%) (Auto) 2.4 % (0.4-6.7) Basophils (%) (Auto) 0.6 % (0.3-1.4) Nucleated RBC Relative Count (auto) 0.0 /100WBC Neutrophils # (Auto) 3.3 K/uL (2.0-7.4) Lymphocytes # (Auto) 0.7 K/uL (1.3-3.6) Monocytes # (Auto) 0.6 K/uL (0.3-1.0) Eosinophils # (Auto) 0.1 K/uL (0.0-0.5) Basophils # (Auto) 0.0 K/uL (0.0-0.1) Nucleated RBC Absolute Count (auto) 0.00 K/uL Prothrombin Time 16.2 seconds (12.0-14.4) Prothromb Time International Ratio 1.29 Activated Partial Thromboplast Time 39 seconds (23-35) Glomerular Filtration Rate Calc > 60.0 Calcium Level 9.6 mg/dl (8.4-10.2) Total Bilirubin 1.0 mg/dl (0.2-1.3) Aspartate Amino Transf (AST/SGOT) 24 U/L (0-35) Alanine Aminotransferase (ALT/SGPT) 18 U/L (0-56) Alkaline Phosphatase 37 U/L (0-126) Troponin I < 0.012 ng/ml Total Protein 4.4 g/dl (6.3-8.2) Albumin 4.1 g/dl (3.5-5.0) Coagulation Test 10/06/17 11:10 Prothrombin Time 16.2 seconds Prothromb Time International Ratio 1.29 Activated Partial Thromboplast Time 39 seconds EKG/Imaging EKG Interpretation 12 lead EKG: EKG 1057 Rhythm: Atrial fibrillation, rate of 75 bpm. [place]: Left QRS: normal ST segments: No ST depression or elevation identified. No significant changes from the 07/24/[address] ANGIOGRAM OF THE CHEST WITH INTRAVENOUS CONTRAST, PE PROTOCOL DATE OF EXAM: 10/06/2017 11:10 COMPARISON: CT chest August 17, 2017. INDICATION: eval for PE, dypnea, hx clots. TECHNIQUE: Contrast enhanced chest CT performed during the injection of 75 ml of Isovue-370. Three-dimensional (MIP) reconstructions were performed. FINDINGS: There is no central no definite peripheral pulmonary arterial filling defect. The subsegmental arteries in the lower lobes are suboptimally opacified and cannot be evaluated. There is mild dependent atelectasis and/or scar. Minimal cystic change at the lung apices. No, consolidation or pneumothorax. Trace pleural effusion on the right. Thyroid: The thyroid is not well imaged. There may be nodules in the left lobe. Thoracic inlet: No thoracic inlet adenopathy. A right chest port terminates near the cavoatrial junction. Heart and great vessels: The cardiac silhouette is enlarged. Coronary atherosclerosis is profound. The central pulmonary arteries are enlarged. The ascending aorta measures approximately 4.8 cm diameter. Scattered aortic arch atherosclerosis. Contrast refluxes into the hepatic veins. Mediastinum and waylon: No mediastinal or hilar adenopathy. Lungs and pleura: As above. Breast and axilla: Mild symmetric gynecomastia. Bones and soft tissues: Bone density is diffusely decreased. There are flowing osteophytes at several thoracic levels. Upper abdomen: Unremarkable. IMPRESSION: 1. Negative for central pulmonary arterial filling defect. The subsegmental arteries in the lower lobes are not well evaluated. 2. Cardiomegaly and extensive coronary atherosclerosis with enlargement of the ascending aorta which measures approximately 4.8 cm diameter. Nonspecific reflux of contrast into the hepatic veins is potentially incidental but can be seen with right heart dysfunction. 3. Nonspecific enlargement of the central pulmonary arteries can be seen with pulmonary arterial hypertension. 4. Trace pleural effusion on the right and mild dependent atelectasis bilaterally. 5. Possible thyroid nodularity is quite poorly evaluated. 6. Additional chronic findings as above. One of the following dose optimization techniques was utilized in the performance of this exam: Automated exposure control; adjustment of the mA and/ or kV according to the patient's size; or use of an iterative reconstruction technique. Specific details can be referenced in the facility's radiology CT exam operational policy. Report Dictated By: Sruthi Lisa MD at 10/06/2017 1:04 PM Report E-Signed By: Sruthi Lisa MD at 10/06/2017 1:19 PM WSN:[email or web address] ED Course/Re-evaluation Clinical Indication for ER IV: IV Access ED Course The patient was admitted to room. A history and physical were obtained. Different diagnoses were considered. The patient's port was accessed. CBC showing hemoglobin 11.3, hematocrit 34.5, MCV 76, which is within the patient's normal range based on previous CBCs. Chemistry unremarkable. INR 1.29. Negative troponin. CT of the chest was negative for acute pulmonary emboli. Showing atelectasis and small pleural effusion. Incidental finding of ascending aorta which measures approximately 4.8 cm diameter, I did review these results with the patient, I did talk to him at length about any previous history of an aortic aneurysm, he states he has never been told that he has one. I did speak with Dr. Hernandez as noted below, suggested following up in roughly 6 months for reevaluation. I also recommended that the patient follow up with Dr. Tello within 7 days for reevaluation, the patient also has a follow-up appointment in about a month and half with Dr. Haque for repeat CT for lymphoma. I also recommended that the patient cough and deep breathe on a regular basis while awake. Patient states he will do this, his states that she will remind him. I also told the patient to return immediately if he has any increased shortness of breath or chest pain. Patient was agreeable and discharged home. No other questions or concerns at this time. As of note the patient states he is not feeling short breath upon discharge, his oxygen saturation on room air was 93% 10/06/2017 1:43:58 pm he did speak with Dr. Hernandez regarding the patient's finding of the 4.8 cm aneurysm, he suggested following up and about 6 months for reevaluation with either his primary care or current vascular surgery done in [place]. Decision to Disposition Date: Oct 06, 2017 Decision to Disposition Time: 13:50 Depart Departure Latest Vital Signs Vital Signs Date Time Temp Pulse Resp B/P (MAP) Pulse Ox O2 Delivery O2 Flow Rate FiO2 10/06/17 14:05 26 10/06/17 14:00 112/76 (88) 10/06/17 13:35 87 93 10/06/17 11:16 2.0 10/06/17 10:50 97.3 Impression: Primary Impression: Dyspnea Condition: Improved Disposition: HOME OR SELF-CARE Referrals: YORDY AVERY MD (PCP) 1 Week Patient Instructions: Dyspnea (ED) Additional Instructions: There is no sign of a pulmonary embolus on CT today. Continue with deep breathing exercises every 1-2 hours and additional coughing. There was an incidental finding of an ascending aortic aneurysm measuring 4.8 cm. I would recommend following up with Dr. Tello within 1 week for reevaluation of your dyspnea and discussion of a six-month reevaluation of the aneurysm. Be sure to drink plenty of water. Get plenty of rest. Continue taking her current medications. Return to the ER for any other concerns or worsening symptoms. Problem Qualifiers Primary Impression: Dyspnea Dyspnea type: unspecified Qualified Codes: R06.00 - Dyspnea, unspecified ROSA MERCEDES FACILITIES ADMINISTRATOR- Oct 06, 2017 11:00
[2017-10-06 11:27] LABS: PLATELET COUNT, AUTOMATED 175 K/uL (150-450)
[2017-10-06] MEDS ORDERED: ONDA4TAB PO (11:29)
[2017-10-06] MEDS ORDERED: CALC-707 PO (11:29)
[2017-10-06] MEDS ORDERED: DIGO125T73 PO (11:29)
[2017-10-06 11:33] LABS: INR 1.29
--- NOTE | 2017-10-06 11:49 | EKG ---
FACILITY: [facility] PATIENT NAME: SANDRA EVANGELISTA : [id number] MR: [id number] V: [id number] EXAM DATE: ORDERING PHYSICIAN: ROSA MERCEDES TECHNOLOGIST: ADENIKE Lehman Reason : SOB Blood Pressure : / mmHG Vent. Rate : 075 BPM Atrial Rate : 034 BPM P-R Int : 000 ms QRS Dur : 134 ms QT Int : 398 ms P-R-T Axes : 000 -46 129 degrees QTc Int : 444 ms Atrial fibrillation Left axis deviation Left bundle branch block Abnormal ECG When compared with ECG of 24-JUL-2017 20:04, No significant change was found Confirmed by MEHDI BARBOZA ([id number]) on 10/06/2017 2:47:03 PM Referred By: CORI Confirmed By:MEHDI BARBOZA
[2017-10-06] MEDS ORDERED: IOPAMIDOL 76% 75 ML INFUS BTL 75 ML ONE (12:00)
[2017-10-06] MEDS ORDERED: NS 0.9% 25 ML BAG 50 ML ONE (12:00)
--- NOTE | 2017-10-06 13:23 | RADIOLOGY IMAGING REPORT ---
FACILITY: [facility] PATIENT NAME: Lyle Lange : 1930 MR: [id number] V: [id number] EXAM DATE: ORDERING PHYSICIAN: ROSA MERCEDES TECHNOLOGIST: Location: [facility] Patient: Lyle Lange : 1930 Visit/Account:[id number] Date of Sevice: 10/06/2017 CT ANGIOGRAM OF THE CHEST WITH INTRAVENOUS CONTRAST, PE PROTOCOL DATE OF EXAM: 10/06/2017 11:10 COMPARISON: CT chest August 17, 2017. INDICATION: eval for PE, dypnea, hx clots. TECHNIQUE: Contrast enhanced chest CT performed during the injection of 75 ml of Isovue-370. Three-d imensional (MIP) reconstructions were performed. FINDINGS: There is no central no definite peripheral pulmonary arterial filling defect. The subsegmental arteri es in the lower lobes are suboptimally opacified and cannot be evaluated. There is mild dependent ate lectasis and/or scar. Minimal cystic change at the lung apices. No, consolidation or pneumothorax. Tr candy pleural effusion on the right. Thyroid: The thyroid is not well imaged. There may be nodules in the left lobe. Thoracic inlet: No thoracic inlet adenopathy. A right chest port terminates near the cavoatrial junc tion. Heart and great vessels: The cardiac silhouette is enlarged. Coronary atherosclerosis is profound. T he central pulmonary arteries are enlarged. The ascending aorta measures approximately 4.8 cm diamete r. Scattered aortic arch atherosclerosis. Contrast refluxes into the hepatic veins. Mediastinum and waylon: No mediastinal or hilar adenopathy. Lungs and pleura: As above. Breast and axilla: Mild symmetric gynecomastia. Bones and soft tissues: Bone density is diffusely decreased. There are flowing osteophytes at severa l thoracic levels. Upper abdomen: Unremarkable. IMPRESSION: 1. Negative for central pulmonary arterial filling defect. The subsegmental arteries in the lower lob es are not well evaluated. 2. Cardiomegaly and extensive coronary atherosclerosis with enlargement of the ascending aorta which measures approximately 4.8 cm diameter. Nonspecific reflux of contrast into the hepatic veins is pote ntially incidental but can be seen with right heart dysfunction. 3. Nonspecific enlargement of the central pulmonary arteries can be seen with pulmonary arterial hype rtension. 4. Trace pleural effusion on the right and mild dependent atelectasis bilaterally. 5. Possible thyroid nodularity is quite poorly evaluated. 6. Additional chronic findings as above. One of the following dose optimization techniques was utilized in the performance of this exam: Autom ated exposure control; adjustment of the mA and/or kV according to the patient's size; or use of an i terative reconstruction technique. Specific details can be referenced in the facility's radiology C T exam operational policy. Report Dictated By: Sruthi Lisa MD at 10/06/2017 1:04 PM Report E-Signed By: Sruthi Lisa MD at 10/06/2017 1:19 PM WSN:[id number]
[2017-10-06 14:00] VITALS: BP 112/76
[2017-10-06] MEDS ORDERED: HEPARIN FLSH (PORT) 500 UN/5ML IVP ONE (14:05)
== END 2017-10-06 14:09 | disposition home or self-care (01) ==
LOC: ER 10:48
DX: R06.02 Shortness of breath (principal)
CPT/HCPCS: 71275; 84484; 85025; 85610; 85730; 93005; 99284; J1642; Q9967; 82040; 82247; 82310; 82374; 82435; 82565; 82947; 84075; 84132; 84155; 84295; 84450; 84460; 84520

== ENCOUNTER → 2017-10-11 | Outpatient (CLI) | payer MEDICARE, OTHER ==
[2016-06-09 18:04] VITALS: BMI 21.6
[~2017-10-11] MED LIST changes: +CALC-707 PO
[2017-10-11 08:24] LABS: INR 1.81
== END ==
LOC: ZZSPRING 01:15
PROVIDERS: ATTEND Pharmacist Pharmacotherapy
DX: Z86.711 Personal history of pulmonary embolism (principal)
CPT/HCPCS: 36415; 85610

== ENCOUNTER → 2017-11-08 | Outpatient (CLI) | payer MEDICARE, OTHER ==
[2016-06-09 18:04] VITALS: BMI 21.6
[~2017-11-08] MED LIST changes: +CALC1TAB24 PO; +CARV25TA77 PO
[2017-11-09 08:11] LABS: INR 2.79
== END ==
LOC: ZZSPRING 01:01
PROVIDERS: ATTEND Pharmacist Pharmacotherapy
DX: D68.59 Other primary thrombophilia (principal)
CPT/HCPCS: 36415; 85610

== ENCOUNTER → 2017-11-10 | Outpatient (CLI) | payer MEDICARE, OTHER ==
[2016-06-09 18:04] VITALS: BMI 21.6
== END ==
LOC: US 01:28
PROVIDERS: ATTEND Internal Medicine Cardiovascular Disease
DX: I51.7 Cardiomegaly (principal); Q21.0 Ventricular septal defect; R29.898 Other symptoms and signs involving the musculoskeletal system; I34.0 Nonrheumatic mitral (valve) insufficiency; I35.1 Nonrheumatic aortic (valve) insufficiency; I31.3 Pericardial effusion (noninflammatory)
CPT/HCPCS: 36415; 82310; 82374; 82435; 82565; 82947; 83880; 84132; 84295; 84520; 85027; 93306

== ENCOUNTER 2017-11-17 13:00 | Outpatient (RCR) | payer MEDICARE, OTHER ==
[2017-11-14 08:54] VITALS: BP 108/74
[2017-11-14 09:20] LABS: PLATELET COUNT, AUTOMATED 182 K/uL (150-450)
--- NOTE | 2017-11-14 11:49 | RADIOLOGY IMAGING REPORT ---
FAC[place] [facility] [place]IENT NAME: Lyle Lange : 1930 MR: [id number] V: [id number] EXAM DATE: ORDERING PHYSICIAN: DEANN SIDDIQUI TECHNOLOGIST: Location: [facility] [place] Patient: Lyle Lange : 1930 Visit/Account:[id number] Date of Sevice: 11/14/2017 CHEST/AB/PELV W/WO CONTRAST HISTORY: Colon cancer ADDITIONAL HISTORY: None. TECHNIQUE: Pre and post administration of IV contrast axial images acquired through the chest abdome n and pelvis during the portal venous phase. Coronal and sagittal reformatting was also performed. D ose Lowering Technique One of the following dose optimization techniques was utilized in the performance of this exam: Autom ated exposure control; adjustment of the mA and/or kV according to the patient's size; or use of an i terative reconstruction technique. Specific details can be referenced in the facility's radiology C T exam operational policy. CONTRAST: 75 mL Isovue-370 COMPARISON: May 23, 2017 FINDINGS: CHEST: Lungs/Pleura: Stable cyst bulla in the right pulmonary apex Minimal biapical pleural parenchymal scarring unchanged Mild scarring the right upper lobe adjacent to the major fissure also appears similar to the prior st udy. 4 mm nodule in the right lower lobe best seen on image 72 of series 6 appears unchanged There is a small posterior layering right pleural effusion which is new when compared to the prior [facility] Mediastinum/lymph nodes: Negative. Heart/vessels: There is an implanted right IJ port distal tip in superior vena cava. Dense coronary artery calcifications are present and calcifications within the aortic arch. There is a small pericardial effusion that appears unchanged. Ascending thoracic aortic aneurysm is unchange d approximately 4.5 cm in diameter. Bones/soft tissues: There are no aggressive appearing bone lesions in the thorax. Suggest dextrocon vex scoliosis ABDOMEN AND PELVIS: Hepatobiliary: Postsurgical changes from a cholecystectomy Spleen: Negative. Pancreas: Negative. Adrenals: Negative. Kidneys ureters and bladder : Numerous bilateral renal cysts some of which appear hyperdense on the n oncontrast study are again seen. There are also multiple nonobstructing renal calculi bilaterally Genitalia: Prior prostatectomy, penile prosthesis GI: Postsurgical changes from a prior right hemicolectomy. Small hiatal hernia Vessels/spaces/nodes: Cyst anterior to the coccyx is an ovoid soft tissue collection measuring 3.3 x 1.6 cm appears stable when compared to images dating back to November 17, 2015 no pathologically en larged lymph nodes are identified Bones/soft tissues: Chronic compression fractures of L1, L2, L3 and L5 appear stable. 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 IMPRESSION: There are postsurgical changes from a right hemicolectomy. 4 mm nodule right lower lobe actually appears less prominent when compared to the prior study and is of doubtful significance There is a small posterior layering right pleural effusion which is new when compared to the prior st udy. This may be reactive although clinical follow-up recommended Dense vascular calcifications including the coronary arteries. Small pericardial effusion unchanged Small ascending thoracic aortic aneurysm unchanged Post surgical changes from a cholecystectomy and prostatectomy Numerous bilateral renal cysts are again seen some which appear hyperdense on the current and prior s tudies which may represent proteinaceous or hemorrhagic cysts. Nonobstructing renal calculi bilaterally Chronic compression fractures in the lumbar spine appear stable Report Dictated By: Caryl Mims MD at 11/14/2017 11:09 AM Report E-Signed By: Caryl Mims MD at 11/14/2017 11:46 AM WSN:[email or web address]
[~2017-11-17 13:00] MED LIST changes: +ALTEPLASE RECOMB 2 MG VIAL IVP PRN; +CHOL200018 PO; -CHOL200022 PO; +DEXTROSE 5%(*) 100 ML BAG 100 ML IVPB PRN; +HEPARIN FLSH (PORT) 500 UN/5ML IVP PRN; +IOPAMIDOL 76% 75 ML INFUS BTL 75 ML ONE; +LIDOCAINE/SOD BICARB 8.4% SYR ID PRN; +NS(*) 0.9% 100 ML BAG 100 ML IVPB PRN; +NS(*) 0.9% 500 ML BAG 500 ML IV PRN; +WATER FOR INJ,STERILE 20 ML IVP PRN
[2017-11-17 13:07] VITALS: BP 102/60
--- NOTE | 2017-11-17 17:10 | ONCOLOGY FOLLOW UP NOTE ---
EVENT DATE: November 17, 2017 DIAGNOSES 1. Classic Hodgkin lymphoma involving the retroperitoneum. 2. Early stage colon cancer after polypectomy of cecal polyp. 3. Atrial fibrillation. 4. History of prostate cancer. 5. History of antiphospholipid antibody syndrome with history of pulmonary embolism in the past. 6. Hypertension. 7. Hypercholesterolemia. CHIEF COMPLAINT Patient is here today for followup of his Hodgkin's lymphoma. ONCOLOGY HISTORY The patient is an 87-year-old male who presented with low back pain and ankle weakness, so the patient had MRI of the lumbar spine without contrast, which was done on November 12, 2015. This MRI actually showed extensive retroperitoneal adenopathy suspicious for malignancy. There was 1.1 cm focal marrow lesion in lumbar 4, which was indeterminate. There was lumbar spondylosis resulting in foraminal stenosis, which appeared worse at lumbar 4-5 and lumbar 5-S1 on the right. The patient had a CT of chest, abdomen and pelvis with/without contrast done on November 17, 2015 which showed enlarged multinodular thyroid gland, post surgical changes from cystectomy and prostatectomy. There was massive retroperitoneal adenopathy, right common iliac lymph node measuring 3.8 cm, right iliac lymph node measured 2.6 cm. There was 9 mm hyperattenuated lesion in the dome of the spleen; could represent hemangioma or lymphangioma. There were numerous bilateral renal cysts. In the mediastinum there was 5.1 cm low dense space-occupying process in the right paratracheal region extending into the precarinal region and an additional 1.3 cm hypodensity in the subcarinal region. A bone scan was done on November 17, 2015 revealing a focal area of isotope in the left tenth costovertebral junction. Repeat CT of abdomen and pelvis with intravenous contrast done on December 05, 2015 did reveal right colonic clips, massive retroperitoneal adenopathy. The renal cyst seems to be simple in nature. The patient had a colonoscopy done on December 04, 2015 because of his history of colon polyps with retroperitoneal lymphadenopathy. There are polyps seen in the cecum, one polyp, two polyps in the ascending colon, one polyp in the descending colon, one polyp in the sigmoid colon. The cecal polyp was quite large and suspicious for neoplasm. On December 05, 2015, the patient had right colon partial resection with no evidence of residual carcinoma. The retroperitoneal lymph node biopsy came back positive for classic Hodgkin lymphoma. The pathology from the polypectomy from the colonoscopy done on December 04, 2015: The ascending polyps came back tubular adenoma; sigmoid colon polyp was tubular adenoma; the descending colon polyp was tubular adenoma; while the cecal polyp came back positive for invasive, well-differentiated colonic adenocarcinoma. The adenocarcinoma invades into the muscularis propria. So, this will be stage T2. The patient had a 2D echocardiogram which showed normal left ventricular ejection fraction at 56%. The patient started chemotherapy with AVD with Adriamycin, vinblastine, and dacarbazine on January 05, 2016. The patient completed three cycles of AVD on March 15, 2016 and treatment was stopped because of deterioration of the left ventricular ejection fraction from 60% to 40%. The patient started treatment with brentuximab on April 20, 2016. The patient received only one cycle of brentuximab, which was stopped because of severe diarrhea with bloody stool. He stated treatment with Opdivo on May 14, 2016. The patient received four courses of Opdivo completed on June 25, 2016 and that was stopped because of severe diarrhea. The patient started treatment with bendamustine and gemcitabine on August 10, 2016. Patient received six cycles of bendamustine and gemcitabine. HISTORY OF PRESENT ILLNESS Patient is here today for followup of his Hodgkin's lymphoma. He is complaining of shortness of breath. He has some numbness in his hands and toes. He is weak, tired and fatigued. PAST MEDICAL HISTORY 1. History of prostate cancer. 2. Antiphospholipid antibody syndrome. 3. Hyperlipidemia. 4. Hypertension. 5. History of pneumonia. 6. History of pulmonary embolism, March 2013. 7. History of GERD. 8. History of thyroid nodule. 9. History of actinic keratosis. PAST SURGICAL HISTORY 1. Cataract extraction bilaterally, December 2006. 2. Vascular surgery, September 2007. 3. Appendectomy at age [age]. 4. Cholecystectomy done laparoscopically in September 2004. 5. Bilateral inguinal hernia repairs, February 2010. 6. Prostatectomy for adenocarcinoma of the prostate, July 1996. 7. Tonsillectomy as a child. FAMILY HISTORY Negative for cancer or blood diseases. SOCIAL HISTORY The patient is with three daughters. 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 He quit smoking a long time ago. He denies any abuse of alcohol or illicit drugs. He drinks about one beer daily. CURRENT MEDICATIONS 1. Omeprazole 40 mg daily. 2. Lisinopril one tablet 5 mg daily. 3. Fish oil 1000 mg. 4. Multivitamins once daily. 5. Carvedilol 3.125 mg twice daily. 6. Probiotic one tablet daily. 7. Warfarin according to the order. 8. Calcium citrate one capsule daily. 9. Vitamin B12 at 1000 mcg one capsule daily. 10. Vitamin D3 at 1000 IU daily. ALLERGIES LEVAQUIN, CLINDAMYCIN. REVIEW OF SYSTEMS CONSTITUTIONAL: No appetite or weight change. No fever, chills or sweating. No recent infection. HEENT: Ears: No tinnitus or hearing problem. Nose: No nasal discharge or epistaxis. Throat: No sore throat or mouth ulcers. Eyes: No diplopia or visual changes. RESPIRATORY: The patient has shortness of breath. No cough, expectoration or hemoptysis. CARDIOVASCULAR: No chest pain, orthopnea, or paroxysmal nocturnal dyspnea (PND). No edema. No palpitations. GASTROINTESTINAL: No nausea or vomiting. No diarrhea or constipation. No change in bowel movements. No heartburn or swallowing difficulties. No abdominal pain. No jaundice. No hematemesis, melena or rectal bleeding. GENITOURINARY: No hematuria or dysuria. MUSCULOSKELETAL: No pain in the muscles, joints or bones. NEUROLOGICAL: No tingling. He has numbness in the hands and feet. No headaches or convulsions. HEMATOLOGIC/LYMPHATIC: No bleeding or easy bruising. He is weak, tired and fatigued. No enlarged lymph nodes. SKIN: No skin rash or lumps. PSYCHIATRIC: No anxiety or depression. PHYSICAL EXAMINATION GENERAL: Looks stable. Well-developed, well-nourished, and in no acute distress. VITAL SIGNS: Blood pressure 102/60, pulse 88 per minute, respirations 16 per minute, temperature 97, pulse ox 90% on room air. HEENT: Head: Atraumatic. No sinus tenderness to palpation. Eyes: No icterus or conjunctivitis. Mouth and throat: No oral thrush or mucositis. NECK: Supple. No cervical or supraclavicular lymphadenopathy. LUNGS: Clear to auscultation and percussion bilaterally. HEART: Regular rate and rhythm. No gallops, murmurs, clicks or rubs. ABDOMEN: Soft and lax. No tenderness. No hepatosplenomegaly. No masses. EXTREMITIES: No cyanosis, clubbing or edema. LYMPHATICS: No peripheral lymphadenopathy. NEUROLOGICAL: Conscious, alert and oriented times three. No focal motor or sensory deficits. PSYCHIATRIC: Mood and affect appear normal. SKIN: No skin rash, bruise or purpuric eruption. DIAGNOSTIC DATA CBC showed a white count of 5.4, hemoglobin 11.9, hematocrit 37.5, platelets 182,000. Chem panel is totally normal. CA is normal at 2.2. CT abdomen, chest, pelvis showed 4 mm right lower lobe nodule which is less prominent, but no lymphadenopathy or evidence of lymphoma. ASSESSMENT 1. Classic Hodgkin's lymphoma involving the retroperitoneum. Bone marrow was negative for metastasis and PET scan revealed lymphadenopathy above and below the diaphragm. Patient received chemotherapy with AVD regimen with adriamycin, vinblastine and dacarbazine, and the treatment stopped because of deterioration of the left ventricular ejection fraction to 40%. Patient showed response to that treatment. He received one cycle of brentuximab on April 20, 2016, and the patient developed severe diarrhea with the treatment so it was stopped. He started treatment with Opdivo on May 14, 2016, and he received four courses, completed June 25, 2016, and treatment stopped because of the development of severe diarrhea and deterioration of the general condition requiring hospitalization. After that patient started treatment with bendamustine and gemcitabine on August 09, 2016, and he received six cycles. [address] chest, abdomen and pelvis done October 25, 2016 did not show any significant lymph nodes, and the gastrohepatic lymph node was stable at 1.4 cm with small periaortic lymph nodes which are stable. His current CT chest, abdomen and pelvis done on November 14, 2017 showed that the right lower lobe 4 mm nodule is less prominent, but no lymphadenopathy or any evidence of lymphoma. I am planning to continue followup. I will see him again in three months with CBC, chem panel, LDH, uric acid, erythrocytes and sedimentation rate and CT chest, abdomen and pelvis with IV and oral contrast. 2. Chemotherapy-induced anemia. Current hemoglobin 11.9. We will continue to monitor. 3. History of prostate cancer. 4. Early colon cancer after polypectomy of the cecal polyp done December 04, 2015, which came back positive for invasive well-differentiated adenocarcinoma of the colon with invasion of the muscularis propria. Partial resection of the right colon was done on December 05, 2015 and it was negative for residual carcinoma. Tumor was staged as stage T2 N0 M0 (stage I). CEA currently is 2.2, down from 2.6, which are all normal. I will continue to monitor his CEA every three months. PLAN 1. Continue followup. 2. Patient to return in three months with CBC, chem panel, LDH, uric acid, ESR, CT chest, abdomen and pelvis with IV and oral contrast and CEA. 3. Patient is to contact us for any new concern or complaints. MAINOR
[2017-12-23] MEDS ORDERED: POTA-23 PO (14:26)
[2017-12-23] MEDS ORDERED: OMEP-125 PO (14:26)
[2018-01-04] MEDS ORDERED: WARF5TAB23 PO ×2 (14:07→15:46)
[2018-01-05] MEDS ORDERED: CALC-9 PO (09:03)
[2018-01-05] MEDS ORDERED: MOM PO (09:03)
[2018-01-05] MEDS ORDERED: LOPE2CAP15 PO (09:03)
[2018-01-05] MEDS ORDERED: GUAI237L21 PO (09:03)
[2018-01-05] MEDS ORDERED: ONDA4TAB PO (09:03)
[2018-01-05] MEDS ORDERED: MAG-65 PO (09:03)
[2018-01-05] MEDS ORDERED: WARF5TAB23 PO ×2 (09:03)
[2018-01-05] MEDS ORDERED: FURO20TA19 PO (11:14)
[2018-01-12] MEDS ORDERED: FURO-47 PO (08:26)
[2018-01-18] MEDS ORDERED: POTA-23 PO (15:20)
[2018-01-19] MEDS ORDERED: CHOL200025 PO (21:49)
[2018-01-19] MEDS ORDERED: DIGO250T76 PO (21:49)
[2018-01-19] MEDS ORDERED: CHOL100059 PO (21:49)
[2018-01-20 10:28] VITALS: Wt 81.0 kg
[2018-01-20] MEDS ORDERED: DIGO125T73 PO (16:56)
[2018-01-20] MEDS ORDERED: CALC-83 PO (17:09)
[2018-01-21] MEDS ORDERED: FURO-47 PO (09:26)
[2018-02-01] MEDS ORDERED: CALC-733 PO (10:56)
[2018-02-01] MEDS ORDERED: CHOL200025 PO (11:21)
[2018-02-01] MEDS ORDERED: FOLI1TAB3 PO (11:21)
[2018-02-01] MEDS ORDERED: FISH1CAP15 PO (11:21)
== END 2018-02-09 ==
LOC: ONC 13:00
PROVIDERS: ATTEND Internal Medicine Hematology
DX: Z85.038 Personal history of other malignant neoplasm of large intestine (principal); R91.8 Other nonspecific abnormal finding of lung field; J90 Pleural effusion, not elsewhere classified; I31.3 Pericardial effusion (noninflammatory); I71.2 Thoracic aortic aneurysm, without rupture; N28.1 Cyst of kidney, acquired; N20.0 Calculus of kidney; D64.81 Anemia due to antineoplastic chemotherapy; Z85.46 Personal history of malignant neoplasm of prostate; I10 Essential (primary) hypertension; E78.00 Pure hypercholesterolemia, unspecified; I48.91 Unspecified atrial fibrillation
CPT/HCPCS: 71270; 74178; 82378; 83615; 84550; 85025; 85651; G0463; J1642; Q9967; 82040; 82247; 82310; 82374; 82435; 82565; 82947; 84075; 84132; 84155; 84295; 84450; 84460; 84520; 99212

== ENCOUNTER → 2017-12-06 | Outpatient (CLI) | payer MEDICARE, OTHER ==
[2016-06-09 18:04] VITALS: BMI 21.6
[~2017-12-06] MED LIST changes: -ALTEPLASE RECOMB 2 MG VIAL IVP PRN; -DEXTROSE 5%(*) 100 ML BAG 100 ML IVPB PRN; -HEPARIN FLSH (PORT) 500 UN/5ML IVP PRN; -IOPAMIDOL 76% 75 ML INFUS BTL 75 ML ONE; -LIDOCAINE/SOD BICARB 8.4% SYR ID PRN; -NS(*) 0.9% 100 ML BAG 100 ML IVPB PRN; -NS(*) 0.9% 500 ML BAG 500 ML IV PRN; -WATER FOR INJ,STERILE 20 ML IVP PRN
[2017-12-06 08:07] LABS: INR 2.85
== END ==
LOC: ZZSPRING 00:56
PROVIDERS: ATTEND Pharmacist Pharmacotherapy
DX: D68.59 Other primary thrombophilia (principal)
CPT/HCPCS: 36415; 85610

== ENCOUNTER → 2018-01-03 | Outpatient (CLI) | payer MEDICARE, OTHER ==
[2016-06-09 18:04] VITALS: BMI 21.6
[2018-01-03 08:23] LABS: INR 2.71
== END ==
LOC: ZZSPRING 01-02 13:46
PROVIDERS: ATTEND Pharmacist Pharmacotherapy
DX: D68.59 Other primary thrombophilia (principal)
CPT/HCPCS: 36415; 85610

== ENCOUNTER 2018-01-05 07:11 | Emergency (ER) | payer MEDICARE, OTHER ==
[2016-06-09 18:04] VITALS: Wt 81.6 kg
[~2018-01-05 07:11] MED LIST changes: -FURO20TA19 PO; -GUAI237L21 PO; -MAG-65 PO; -MOM PO
--- NOTE | 2018-01-05 07:21 | ER Report ---
History and Physical Time Seen By MD: 07:21 Hx. of Stated Complaint: LEFT ARM NUMBNESS/TINGLING STARTED AROUND MIDNIGHT, CP/SOB, 324 MG ASA AND 21 NITRO GIVEN EN ROUTE HPI/ROS CHIEF COMPLAINT: Shortness of breath HISTORY OF PRESENT ILLNESS: Patient is an 87-year-old male who presents to the emergency department complaining of some shortness of breath and left arm numbness that began around midnight this morning. He states some mild chest pressure but more short of breath. He's had similar episodes in the past which usually get better with deep respirations. He states that this is does not seem to be helping currently. He denies fevers or chills denies cough. Patient states he is currently in remission from treatment of lymphoma at this time. She does take Coumadin both for atrial fibrillation as well as history of prior PE. REVIEW OF SYSTEMS: Constitutional: No fever, no chills. Eyes: No discharge. ENT: No sore throat. Cardiovascular: Chest pressure Respiratory: Shortness of breath Gastrointestinal: Mild periumbilical abdominal pain Musculoskeletal: No back pain. Skin: No rashes. Neurological: No headache. Allergies: Coded Allergies: gemfibrozil (Verified Allergy, Intermediate, RASH, FATIGUE, 01/05/18) levofloxacin (Verified Allergy, Intermediate, rash, fatigue, Achilles tendon problem, 01/05/18) lovastatin (Verified Adverse Reaction, Intermediate, MYALGIA, 01/05/18) morphine (Verified Adverse Reaction, Intermediate, HALLUCINATIONS, 01/05/18) simvastatin (Verified Adverse Reaction, Mild, MYALGIA, 01/05/18) Home Meds Active Scripts Potassium Chloride (KLOR-CON 10) 10 Meq Tablet.er, 1 TAB PO TIDCF, #90 TAB 1 Refill Prov:YORDY AVERY MD 12/23/17 Omeprazole (OMEPRAZOLE) 20 Mg Capsule.dr, 1 CAP PO QDAY, #90 CAP 1 Refill Prov:YORDY AVERY MD 12/23/17 Fish Oil/Dha/Epa (FISH OIL 1,200 MG FISH OIL) 1 Each Capsule, 1 CAP PO QDAY, #90 CAP 4 Refills Prov:YORDY AVERY MD 06/13/17 Lactobacillus Combo No.10 (PROBIOTIC) 1 Each Capsule, 1 EACH PO QDAY, #90 CAP 1 Refill Prov:YORDY AVERY MD 06/08/17 Ibandronate Sodium (BONIVA) 150 Mg Tablet, 1 TAB PO Q30D, #4 TAB 6 Refills Prov:YORDY AVERY MD 04/11/17 Tamsulosin Hcl (FLOMAX) 0.4 Mg Cap.er.24h, 1 CAP PO QDAY, #90 CAPSULE 3 Refills Prov:YORDY AVERY MD 04/11/17 Cyanocobalamin (Vitamin B-12) (VITAMIN B-12) 1,000 Mcg Tablet, 1 TAB PO QDAY, #90 TAB 3 Refills Prov:YORDY AVERY MD 07/13/16 Reported Medications Guaifenesin/Dextromethorphan (Robitussin Cough-Chest Dm Liq) 100 Mg-5 Mg/5 Ml Liquid, 5 ML PO Q4-6H PRN for COUGH 01/05/18 Mag Hydrox/Aluminum Hyd/Simeth (Maalox Advanced Suspension) 200 Mg-200 Mg-20 Mg/5 Ml Oral.susp, 15 ML PO Q4H PRN for INDIGESTION 01/05/18 Ondansetron (ZOFRAN ODT) 4 Mg Tab.rapdis, 8 MG PO Q8H PRN for NAUSEA, TAB.CRYSTAL 01/05/18 Magnesium Hydroxide (MILK OF MAGNESIA) 400 Mg/5 Ml Oral.susp, 15-30 ML PO PRN, BOTTLE 01/05/18 Loperamide HCl (Imodium A-D) 2 Mg Capsule, 2 TAB PO PRN 01/05/18 Warfarin Sodium (WARFARIN SODIUM) 5 Mg Tablet, 7.5 MG PO TUE, TUE, TAB 01/05/18 Warfarin Sodium (WARFARIN SODIUM) 5 Mg Tablet, 5 MG PO BERNARDO, TUE, TUE, TH, SA, TAB 01/05/18 Calcium Carbonate/Vitamin D3 (Calcium 500 + Vit D 400 Tablet) 1 Each Tablet, 1 TAB PO DAILY 01/05/18 Furosemide (FUROSEMIDE) 40 Mg Tablet, 1 TAB PO QDAY, TAB 11/02/17 Carvedilol (COREG) 25 Mg Tablet, 1 TAB PO BID, TAB 11/02/17 Calcium Carbonate/Mag Hydrox (ANTACID CHEWABLE TABLET) 1 Each Tab.chew, 2 TAB PO Q2H PRN for indigestion, TAB.CHEW 10/13/17 Digoxin (DIGOXIN) 125 Mcg Tablet, 1 TAB PO QDAY 10/06/17 Folic Acid/Multivits-Min/Lut (MULTI-VITAMIN GUMMIES) 1 Each Tab.chew, 1 EACH PO, TAB.CHEW 07/24/17 Acetaminophen (ACETAMINOPHEN) 325 Mg Tablet, 1-2 TAB PO Q4H PRN for PAIN, TAB 07/20/17 Oxygen (OXYGEN) Inha, 2 L INH HS, L 03/31/17 Vit A,C & E/Lutein/Minerals (OCUVITE TABLET) 1 Each Tablet, 1 TAB PO QDAY 12/23/16 Discontinued Reported Medications Ondansetron (ZOFRAN ODT) 4 Mg Tab.rapdis, 1 TAB PO Q8H PRN for nausea, TAB.CRYSTAL 10/06/17 Discontinued Scripts Warfarin Sodium (WARFARIN SODIUM) 5 Mg Tablet, 1-1.5 MG PO QDAY for 90 Days, #102 TAB 2 Refills Prov:YORDY AVERY MD 01/04/18 Cholecalciferol (Vitamin D3) (VITAMIN D) 2,000 Unit Tablet, 1 TAB PO QDAY, #90 CAPSULE 4 Refills Prov:YORDY AVERY MD 05/09/17 Warfarin Sodium (WARFARIN SODIUM) 5 Mg Tablet, 1-1.5 MG PO QDAY for 90 Days, #102 TAB 2 Refills Prov:YORDY AVERY MD 09/22/17 Past Medical/Surgical History Past medical history for Hodgkin's lymphoma, colon cancer, atrial fibrillation, prostate cancer history of PE in the past, hypertension, hypercholesterolemia. History of appendectomy, cholecystectomy, bilateral inguinal hernia repairs, prostatectomy for adenocarcinoma. Hx Smoking: Yes Smoking Status: Former Smoker Exposure to Second Hand Smoke?: Yes (father smoked 1 cig per day) Hx Substance Use Disorder: No Hx Alcohol Use: No Constitutional Vital Sign - Last 24 Hours 01/05/18 01/05/18 01/05/18 01/05/18 07:15 07:19 07:22 07:30 Temp 97.5 Pulse 70 73 Resp 16 8 B/P (MAP) 104/74 104/74 (84) 101/89 (93) Pulse Ox 92 92 O2 Delivery Nasal Cannula O2 Flow Rate 2.0 01/05/18 01/05/18 07:45 08:00 Pulse 67 68 Resp 28 11 B/P (MAP) 103/73 (83) 110/75 (87) Pulse Ox 92 95 Physical Exam General/Constitutional: Patient is awake, alert, nontoxic and in no acute respiratory distress. Head: Normocephalic and atraumatic. Eyes: Conjunctival clear, Pupils are equal and reactive to light. Extraocular muscles are intact and symmetrical. Sclera are clear and anicteric. Ears:External canals are clear. Tympanic membranes are clear with normal landmarks and light reflex. Nares: No rhinorrhea or bleeding. Turbinates are pink and moist. Oropharyngeal: Mucous membranes are moist. There is no pharyngeal erythema or exudate. There are no palatal petechiae. Uvula is midline and symmetrical. Neck: Supple, no adenopathy. Cardiovascular: Heart is irregularly irregular with normal rate, grade 2/6 systolic ejection murmur Pulmonary: Lungs are clear to auscultation bilaterally. There are no wheezes, rales, or rhonchi. Chest rise is symmetrical Abdomen: Soft, nontender, no guarding or peritoneal signs. Extremities: No gross deformities, No peripheral cyanosis. Able to move all 4 extremities. Neuro: Alert and oriented X3, Skin: No rashes, skin is warm dry and well perfused. Medical Decision Making Data Points Result Diagram: 01/05/18 0715 01/05/18 0715 Laboratory Hematology Test 01/05/18 07:15 Red Blood Count 4.91 M/uL (4.00-5.60) Mean Corpuscular Volume 75.4 fL (80.0-96.0) Mean Corpuscular Hemoglobin 23.7 pg (26.0-33.0) Mean Corpuscular Hemoglobin Concent 31.5 g/dL (32.0-36.0) Red Cell Distribution Width 20.7 % (11.5-14.5) Mean Platelet Volume 9.1 fL (7.2-11.1) Neutrophils (%) (Auto) 65.7 % (39.4-72.5) Lymphocytes (%) (Auto) 16.3 % (17.6-49.6) Monocytes (%) (Auto) 13.2 % (4.1-12.4) Eosinophils (%) (Auto) 4.1 % (0.4-6.7) Basophils (%) (Auto) 0.7 % (0.3-1.4) Nucleated RBC Relative Count (auto) 0.0 /100WBC Neutrophils # (Auto) 2.9 K/uL (2.0-7.4) Lymphocytes # (Auto) 0.7 K/uL (1.3-3.6) Monocytes # (Auto) 0.6 K/uL (0.3-1.0) Eosinophils # (Auto) 0.2 K/uL (0.0-0.5) Basophils # (Auto) 0.0 K/uL (0.0-0.1) Nucleated RBC Absolute Count (auto) 0.00 K/uL Prothrombin Time 28.7 seconds (12.0-14.4) Prothromb Time International Ratio 2.64 Activated Partial Thromboplast Time 38 seconds (23-35) Sodium Level 139 mmol/L (137-145) Potassium Level 4.6 mmol/L (3.5-5.0) Chloride Level 105 mmol/L (98-107) Carbon Dioxide Level 21 mmol/L (22-30) Blood Urea Nitrogen 22 mg/dl (9-21) Creatinine 1.30 mg/dl (0.66-1.25) Glomerular Filtration Rate Calc 52.5 Random Glucose 99 mg/dl (75-110) Calcium Level 9.3 mg/dl (8.4-10.2) Total Bilirubin 1.2 mg/dl (0.2-1.3) Aspartate Amino Transf (AST/SGOT) 19 U/L (0-35) Alanine Aminotransferase (ALT/SGPT) 26 U/L (0-56) Alkaline Phosphatase 42 U/L (0-126) Troponin I < 0.012 ng/ml B-Type Natriuretic Peptide 1450 pg/ml (0-100) Total Protein 7.2 g/dl (6.3-8.2) Albumin 3.9 g/dl (3.5-5.0) Digoxin Level 0.8 ng/ml Digoxin Last Dose Date unk Digoxin Last Dose Time unk Chemistry Test 01/05/18 07:15 White Blood Count 4.4 k/uL (4.5-11.0) Red Blood Count 4.91 M/uL (4.00-5.60) Hemoglobin 11.7 g/dL (14.0-18.0) Hematocrit 37.0 % (42.0-52.0) Mean Corpuscular Volume 75.4 fL (80.0-96.0) Mean Corpuscular Hemoglobin 23.7 pg (26.0-33.0) Mean Corpuscular Hemoglobin Concent 31.5 g/dL (32.0-36.0) Red Cell Distribution Width 20.7 % (11.5-14.5) Platelet Count 152 K/uL (150-450) Mean Platelet Volume 9.1 fL (7.2-11.1) Neutrophils (%) (Auto) 65.7 % (39.4-72.5) Lymphocytes (%) (Auto) 16.3 % (17.6-49.6) Monocytes (%) (Auto) 13.2 % (4.1-12.4) Eosinophils (%) (Auto) 4.1 % (0.4-6.7) Basophils (%) (Auto) 0.7 % (0.3-1.4) Nucleated RBC Relative Count (auto) 0.0 /100WBC Neutrophils # (Auto) 2.9 K/uL (2.0-7.4) Lymphocytes # (Auto) 0.7 K/uL (1.3-3.6) Monocytes # (Auto) 0.6 K/uL (0.3-1.0) Eosinophils # (Auto) 0.2 K/uL (0.0-0.5) Basophils # (Auto) 0.0 K/uL (0.0-0.1) Nucleated RBC Absolute Count (auto) 0.00 K/uL Prothrombin Time 28.7 seconds (12.0-14.4) Prothromb Time International Ratio 2.64 Activated Partial Thromboplast Time 38 seconds (23-35) Glomerular Filtration Rate Calc 52.5 Calcium Level 9.3 mg/dl (8.4-10.2) Total Bilirubin 1.2 mg/dl (0.2-1.3) Aspartate Amino Transf (AST/SGOT) 19 U/L (0-35) Alanine Aminotransferase (ALT/SGPT) 26 U/L (0-56) Alkaline Phosphatase 42 U/L (0-126) Troponin I < 0.012 ng/ml B-Type Natriuretic Peptide 1450 pg/ml (0-100) Total Protein 7.2 g/dl (6.3-8.2) Albumin 3.9 g/dl (3.5-5.0) Digoxin Level 0.8 ng/ml Digoxin Last Dose Date unk Digoxin Last Dose Time unk Coagulation Test 01/05/18 07:15 Prothrombin Time 28.7 seconds Prothromb Time International Ratio 2.64 Activated Partial Thromboplast Time 38 seconds Toxicology Test 01/05/18 07:15 Digoxin Level 0.8 ng/ml Digoxin Last Dose Date unk Digoxin Last Dose Time unk EKG/Imaging EKG Interpretation 01/05/2018 7:24:41 am EKG shows atrial fibrillation with a ventricular rate of 77 bpm and rate controlled. Patient has a left bundle branch block. This was compared to an EKG from 10/06/2017 and there are no appreciable changes. Monitor Interpretation: Atrial Fibrillation Imaging FACILITY: [facility] - [place] PATIENT NAME: Lyle Lange : 1930 MR: [id number] V: [id number] EXAM DATE: [id number] ORDERING PHYSICIAN: LEÓN HATCH TECHNOLOGIST: Location: [facility] [place] Patient: Lyle Lange : 1930 Visit/Account:[id number] Date of Sevice: 01/05/2018 CTA CHEST with contrast (PULM ANG) EXAMINATION: CTA of the chest with IV contrast History : Shortness of breath, chest pain TECHNIQUE: Pulmonary embolus protocol - Thin-slice axial imaging of the chest was performed during maximal pulmonary arterial opacification with intravenous nonionic iodinated contrast. 3D coronal slab MIPs and 2D reconstructions in the coronal and sagittal planes were performed to aid in pulmonary embolus detection. Professor Of Economics images have been stored on PACS. One of the following dose optimization techniques was utilized in the performance of this exam: Automated exposure control; adjustment of the mA and/or kV according to the patient's size; or use of an iterative reconstruction technique. Specific details can be referenced in the facility's radiology CT exam operational policy. Contrast: 75 cc of Isovue-370 COMPARISON STUDIES: 11/14/2017, 10/06/2017. FINDINGS: Please note that this exam is optimized for assessment of the pulmonary arteries and is not intended as a diagnostic study of the thoracic aorta, coronary arteries or venous structures. Angiographic Findings: Pulmonary arteries: There is no visualized pulmonary embolism to the segmental level. There is poor bolus opacification of the subsegmental arteries in both lower lobes. Other vasculature: Heart is markedly enlarged with calcified coronary atherosclerotic disease. The mid ascending thoracic aorta measures 4.6 cm which is grossly unchanged. There is a moderate-sized pericardial effusion which is slightly more prominent especially near the ascending aorta.. Additional non-angiographic findings: Lungs / Pleura: Small right-sided pleural effusion 7 more prominent than prior exam. Atelectasis or consolidation at lung bases is noted.. Mediastinum / Delaney: As above. Heart / Pericardium: As above. Lymph node assessment: negative Musculoskeletal / Body wall: Degenerative changes are noted the spine. Upper abdomen: Reflux of contrast in the hepatic veins suggest right heart dysfunction. IMPRESSION: 1. No evidence for pulmonary emboli to the segmental level. Please see above comments. 2. Cardiomegaly with calcified coronary atherosclerotic disease. Ascending thoracic aneurysm measures 4.6 cm which is unchanged. 3. Reflux of contrast into the hepatic veins suggest right heart dysfunction. 4. Small right-sided pleural effusion slightly enlarged from prior exams. Report Dictated By: Christian Pollard MD at 01/05/2018 8:57 AM Report E-Signed By: Christian Pollard MD at 01/05/2018 9:14 AM WSN:[id number] ED Course/Re-evaluation Clinical Indication for ER IV: IV Access ED Course 01/05/2018 7:40:46 am After history and physical exam was performed differential diagnosis was formulated which includes but is not limited to acute coronary syndrome, STEMI, non-STEMI, pulmonary embolism, pneumonia, COPD exacerbation. Plan at this time will be cardiac workup with delta troponin we'll also perform CT angiogram of the chest to look for pulmonary embolism. 01/05/2018 7:49:49 am INR is 2.6. EKG showing a left bundle branch block which is not new. Negative for all Sgarbossa's s criteria 01/05/2018 11:11:59 am was seen and evaluated by the hospitalist Dr. Braga. Patient initially was going to accept admission however he now feels improved and no longer wants to stay in the hospital. I believe patient is competent to make this medical decision and plan at this time will be to increase his Lasix by 20 mg a day. Decision to Disposition Date: Jan 05, 2018 Decision to Disposition Time: 11:12 Depart Departure Latest Vital Signs Vital Signs Date Time Temp Pulse Resp B/P (MAP) Pulse Ox O2 Delivery O2 Flow Rate FiO2 01/05/18 08:00 68 11 110/75 (87) 95 01/05/18 07:22 2.0 01/05/18 07:15 97.5 Nasal Cannula Impression: Primary Impression: Heart failure Condition: Improved Disposition: HOME OR SELF-CARE Referrals: YORDY AVERY MD (PCP) Follow-up in 5-7 days if symptoms do not improve New Scripts Furosemide (LASIX) 20 Mg Tablet 1 TAB PO QPM for 7 Days, #7 TAB 0 Refills Prov: LEÓN HATCH MD 01/05/18 Patient Instructions: Heart Failure (ED) Problem Qualifiers Primary Impression: Heart failure Heart failure type: diastolic Heart failure chronicity: acute on chronic Qualified Codes: I50.33 - Acute on chronic diastolic (congestive) heart failure LEÓN HATCH MD Jan 05, 2018 07:21
[2018-01-05] MEDS ORDERED: ASPIRIN 81 MG CHEW PO ONE (07:30)
--- NOTE | 2018-01-05 07:30 | EKG ---
FACILITY: [facility] [place] PATIENT NAME: SANDRA EVANGELISTA : [id number] MR: [id number] V: [id number] EXAM DATE: ORDERING PHYSICIAN: LEÓN HATCH TECHNOLOGIST: ADENIKE Lehman Reason : CP Blood Pressure : / mmHG Vent. Rate : 077 BPM Atrial Rate : 277 BPM P-R Int : 000 ms QRS Dur : 140 ms QT Int : 410 ms P-R-T Axes : 000 -42 134 degrees QTc Int : 463 ms Atrial fibrillation Left axis deviation Left bundle branch block Abnormal ECG When compared with ECG of 06-OCT-2017 10:57, No significant change was found Confirmed by MEHDI BARBOZA ([id number]) on 01/05/2018 11:22:43 AM Referred By: Confirmed By:MEHDI BARBOZA
[2018-01-05 07:38] LABS: INR 2.64; PLATELET COUNT, AUTOMATED 152 K/uL (150-450)
[2018-01-05] MEDS ORDERED: EMS NS 0.9%(*) 1000 ML BAG 1,000 ML IV ONE (07:40)
[2018-01-05] MEDS ORDERED: NS(*) 0.9% 500 ML BAG 500 ML IV ONE (07:45)
[2018-01-05] MEDS ORDERED: NS(*) 0.9% 50 ML BAG 50 ML ONE (07:48)
[2018-01-05] MEDS ORDERED: IOPAMIDOL 76% 75 ML INFUS BTL 75 ML ONE (07:48)
[2018-01-05 08:00] VITALS: BP 110/75
--- NOTE | 2018-01-05 08:02 | RADIOLOGY IMAGING REPORT ---
FACILITY: [facility] PATIENT NAME: Lyle Lange : 1930 MR: [id number] V: [id number] EXAM DATE: ORDERING PHYSICIAN: LEÓN HATCH TECHNOLOGIST: [place] [facility] [place] Patient: Lyle Lange : 1930 Visit/Account:[id number] Date of Sevice: 01/05/2018 Single view of the chest Indication: Chest pain.. Comparison: None available Findings: Heart is upper limits of normal, accentuated by the frontal projection. Prominence of central vascul ature which is likely secondary to low volumes and a frontal projection. No fulminant failure, conso lidation, or pneumothorax. Port overlies the right hemithorax. Possible small right effusion. IMPRESSION: 1. Low volumes with mild central hypoventilatory change. Possible small right effusion Report Dictated By: Rehan Santos MD at 01/05/2018 7:52 AM Report E-Signed By: Rehan Santos MD at 01/05/2018 7:58 AM WSN:[id number]
[2018-01-05] MEDS ORDERED: fentaNYL CITR 100 MCG/2 ML AMP IVP ONE (08:05)
[2018-01-05] MEDS ORDERED: GUAI237L21 PO (09:03)
[2018-01-05] MEDS ORDERED: WARF5TAB23 PO ×2 (09:03)
[2018-01-05] MEDS ORDERED: CALC-9 PO (09:03)
[2018-01-05] MEDS ORDERED: MAG-65 PO (09:03)
[2018-01-05] MEDS ORDERED: LOPE2CAP15 PO (09:03)
[2018-01-05] MEDS ORDERED: MOM PO (09:03)
[2018-01-05] MEDS ORDERED: ONDA4TAB PO (09:03)
--- NOTE | 2018-01-05 09:18 | RADIOLOGY IMAGING REPORT ---
FACILITY: [facility] - [place] PATIENT NAME: Lyle Lange : 1930 MR: [id number] V: [id number] EXAM DATE: ORDERING PHYSICIAN: LEÓN HATCH TECHNOLOGIST: Location: [facility] Patient: Lyle Lange : 1930 Visit/Account:[id number] Date of Sevice: 01/05/2018 CTA CHEST with contrast (PULM ANG) EXAMINATION: CTA of the chest with IV contrast History : Shortness of breath, chest pain TECHNIQUE: Pulmonary embolus protocol - Thin-slice axial imaging of the chest was performed during maximal pulmonary arterial opacification with intravenous nonionic iodinated contrast. 3D coronal sla b MIPs and 2D reconstructions in the coronal and sagittal planes were performed to aid in pulmonary e mbolus detection. Technical Advisor images have been stored on PACS. One of the following dose optimization techniques was utilized in the performance of this exam: Autom ated exposure control; adjustment of the mA and/or kV according to the patient's size; or use of an i terative reconstruction technique. Specific details can be referenced in the facility's radiology C T exam operational policy. Contrast: 75 cc of Isovue-370 COMPARISON STUDIES: 11/14/2017, 10/06/2017. FINDINGS: Please note that this exam is optimized for assessment of the pulmonary arteries and is not intended as a diagnostic study of the thoracic aorta, coronary arteries or venous structures. Angiographic Findings: Pulmonary arteries: There is no visualized pulmonary embolism to the segmental level. There is poor b olus opacification of the subsegmental arteries in both lower lobes. Other vasculature: Heart is markedly enlarged with calcified coronary atherosclerotic disease. The mid ascending thoracic aorta measures 4.6 cm which is grossly unchanged. There is a moderate-sized pe ricardial effusion which is slightly more prominent especially near the ascending aorta.. Additional non-angiographic findings: Lungs / Pleura: Small right-sided pleural effusion 7 more prominent than prior exam. Atelectasis or consolidation at lung bases is noted.. Mediastinum / Delaney: As above. Heart / Pericardium: As above. Lymph node assessment: negative Musculoskeletal / Body wall: Degenerative changes are noted the spine. Upper abdomen: Reflux of contrast in the hepatic veins suggest right heart dysfunction. IMPRESSION: 1. No evidence for pulmonary emboli to the segmental level. Please see above comments. 2. Cardiomegaly with calcified coronary atherosclerotic disease. Ascending thoracic aneurysm measures 4.6 cm which is unchanged. 3. Reflux of contrast into the hepatic veins suggest right heart dysfunction. 4. Small right-sided pleural effusion slightly enlarged from prior exams. Report Dictated By: Christian Pollard MD at 01/05/2018 8:57 AM Report E-Signed By: Christian Pollard MD at 01/05/2018 9:14 AM WSN:[id number]
[2018-01-05] MEDS ORDERED: FUROSEMIDE 40 MG/4 ML VIAL IVP ONE (09:45)
[2018-01-05] MEDS ORDERED: FURO20TA19 PO (11:14)
--- NOTE | 2018-01-05 11:34 | Hospitalist Consultation ---
History of Present Illness Requesting Physician Wilmer Reason for Consult SOB History of Present Illness 87yo male with a h/o of HFrEF and atrial fibrillation who developed sudden SOB. He was in his normal state of health when he went to bed last night. He was awoken at about midnight with sudden SOB, 3/10 chest pain and some left fingers numbness. Nothing seemed to help the SOB. He finally decided to come to the ER. He denies f/c/n/v/orthopnea/edema/new medications/diarrhea/constipation. In the ER, he was given a liter of fluid and then IV Lasix. He reports that he feels back to baseline with his WOB after he urinated. The chest pain is 1/10 and his finger tips still feel a bit numb. 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 Status: Chronic (4) History of prostate cancer Status: Chronic (5) History of colon polyps Status: Acute (6) History of colon cancer, stage I Status: Chronic (7) History of hodgkin's lymphoma Status: Acute (8) HFrEF (heart failure with reduced ejection fraction) Status: Acute (9) CKD (chronic kidney disease) stage 3, GFR 30-59 ml/min Home Meds Active Scripts Potassium Chloride (KLOR-CON 10) 10 Meq Tablet.er, 1 TAB PO TIDCF, #90 TAB 1 Refill Prov:YORDY AVERY MD 12/23/17 Omeprazole (OMEPRAZOLE) 20 Mg Capsule.dr, 1 CAP PO QDAY, #90 CAP 1 Refill Prov:YORDY AVERY MD 12/23/17 Fish Oil/Dha/Epa (FISH OIL 1,200 MG FISH OIL) 1 Each Capsule, 1 CAP PO QDAY, #90 CAP 4 Refills Prov:YORDY AVERY MD 06/13/17 Lactobacillus Combo No.10 (PROBIOTIC) 1 Each Capsule, 1 EACH PO QDAY, #90 CAP 1 Refill Prov:YORDY AVERY MD 06/08/17 Ibandronate Sodium (BONIVA) 150 Mg Tablet, 1 TAB PO Q30D, #4 TAB 6 Refills Prov:YORDY AVERY MD 04/11/17 Tamsulosin Hcl (FLOMAX) 0.4 Mg Cap.er.24h, 1 CAP PO QDAY, #90 CAPSULE 3 Refills Prov:YORDY AVERY MD 04/11/17 Cyanocobalamin (Vitamin B-12) (VITAMIN B-12) 1,000 Mcg Tablet, 1 TAB PO QDAY, #90 TAB 3 Refills Prov:YORDY AVERY MD 07/13/16 Reported Medications Guaifenesin/Dextromethorphan (Robitussin Cough-Chest Dm Liq) 100 Mg-5 Mg/5 Ml Liquid, 5 ML PO Q4-6H PRN for COUGH 01/05/18 Mag Hydrox/Aluminum Hyd/Simeth (Maalox Advanced Suspension) 200 Mg-200 Mg-20 Mg/5 Ml Oral.susp, 15 ML PO Q4H PRN for INDIGESTION 01/05/18 Ondansetron (ZOFRAN ODT) 4 Mg Tab.rapdis, 8 MG PO Q8H PRN for NAUSEA, TAB.CRYSTAL 01/05/18 Magnesium Hydroxide (MILK OF MAGNESIA) 400 Mg/5 Ml Oral.susp, 15-30 ML PO PRN, BOTTLE 01/05/18 Loperamide HCl (Imodium A-D) 2 Mg Capsule, 2 TAB PO PRN 01/05/18 Warfarin Sodium (WARFARIN SODIUM) 5 Mg Tablet, 7.5 MG PO TUE, TUE, TAB 01/05/18 Warfarin Sodium (WARFARIN SODIUM) 5 Mg Tablet, 5 MG PO BERNARDO, E, TUE, TH, SA, TAB 01/05/18 Calcium Carbonate/Vitamin D3 (Calcium 500 + Vit D 400 Tablet) 1 Each Tablet, 1 TAB PO DAILY 01/05/18 Furosemide (FUROSEMIDE) 40 Mg Tablet, 1 TAB PO QDAY, TAB 11/02/17 Carvedilol (COREG) 25 Mg Tablet, 1 TAB PO BID, TAB 11/02/17 Calcium Carbonate/Mag Hydrox (ANTACID CHEWABLE TABLET) 1 Each Tab.chew, 2 TAB PO Q2H PRN for indigestion, TAB.CHEW 10/13/17 Digoxin (DIGOXIN) 125 Mcg Tablet, 1 TAB PO QDAY 10/06/17 Folic Acid/Multivits-Min/Lut (MULTI-VITAMIN GUMMIES) 1 Each Tab.chew, 1 EACH PO, TAB.CHEW 07/24/17 Acetaminophen (ACETAMINOPHEN) 325 Mg Tablet, 1-2 TAB PO Q4H PRN for PAIN, TAB 07/20/17 Oxygen (OXYGEN) Inha, 2 L INH HS, L 03/31/17 Vit A,C & E/Lutein/Minerals (OCUVITE TABLET) 1 Each Tablet, 1 TAB PO QDAY 12/23/16 Discontinued Reported Medications Ondansetron (ZOFRAN ODT) 4 Mg Tab.rapdis, 1 TAB PO Q8H PRN for nausea, TAB.CRYSTAL 10/06/17 Discontinued Scripts Warfarin Sodium (WARFARIN SODIUM) 5 Mg Tablet, 1-1.5 MG PO QDAY for 90 Days, #102 TAB 2 Refills Prov:YORDY AVERY MD 01/04/18 Cholecalciferol (Vitamin D3) (VITAMIN D) 2,000 Unit Tablet, 1 TAB PO QDAY, #90 CAPSULE 4 Refills Prov:YORDY AVERY MD 05/09/17 Warfarin Sodium (WARFARIN SODIUM) 5 Mg Tablet, 1-1.5 MG PO QDAY for 90 Days, #102 TAB 2 Refills Prov:YORDY AVERY MD 09/22/17 Allergies: Coded Allergies: gemfibrozil (Verified Allergy, Intermediate, RASH, FATIGUE, 01/05/18) levofloxacin (Verified Allergy, Intermediate, rash, fatigue, Achilles tendon problem, 01/05/18) lovastatin (Verified Adverse Reaction, Intermediate, MYALGIA, 01/05/18) morphine (Verified Adverse Reaction, Intermediate, HALLUCINATIONS, 01/05/18) simvastatin (Verified Adverse Reaction, Mild, MYALGIA, 01/05/18) Patient History: Colitis BROTHER OR SISTER, Age:81 Diabetes mellitus (DM) Maternal Grandmother, , Age:Unknown FH: heart disease FATHER, , Age:83 MOTHER, , Age:83 FH: prostate cancer Hx Smoking: Yes Smoking Status: Former Smoker Exposure to Second Hand Smoke?: Yes (father smoked 1 cig per day) Caffeine Intake: Coffee, Tea Caffeine/Cups Per Day: 1pd Hx Alcohol Use: No Hx Substance Use Disorder: No Review of Systems All Systems Reviewed/Normal: Yes, Except as Noted Exam Vital Signs Vital Signs Date Time Temp Pulse Resp B/P (MAP) Pulse Ox O2 Delivery O2 Flow Rate FiO2 01/05/18 08:00 68 11 110/75 (87) 95 01/05/18 07:22 2.0 11/1/18 07:15 97.5 Nasal Cannula General Appearance: Alert, Awake, No Acute Distress Neuro: No Gross deficits (Normal sensation to light touch in hands bilaterally. No facial droop. CARMICHAEL. Ambulates well) Eyes: PERRLA ENT: Moist Mucous Membranes Cardiovascular: No JVD, Other (Irreg, irreg, 2/6 systolic murmur) Respiratory: Clear to Auscultation GI: Abd Soft and Non-Tender Extremities: No Edema Integumentary: No Jaundice, No Cyanosis Medical Decision Making Data Points Result Diagram: 01/05/1871401/05/18 07 Item Value Date Time Neutrophils (%) (Auto) 65.7 % 01/05/18 07 Monocytes (%) (Auto) 13.2 % H 01/05/18 07 Lymphocytes (%) (Auto) 16.3 % L 01/05/18 0715 Prothromb Time International Ratio 2.64 01/05/18 0715 Creatinine 1.20 mg/dl 11/14/17 0915 Creatinine 1.30 mg/dl H 01/05/18 0715 B-Type Natriuretic Peptide 1470 pg/ml H 11/15/17 0754 B-Type Natriuretic Peptide 1450 pg/ml H 01/05/18 0715 Troponin I < 0.012 ng/ml 01/05/18 0715 Total Bilirubin 1.2 mg/dl 01/05/18 0715 Aspartate Amino Transf (AST/SGOT) 19 U/L 01/05/18 0715 Alanine Aminotransferase (ALT/SGPT) 26 U/L 01/05/18 0715 Alkaline Phosphatase 42 U/L 01/05/18 0715 EKG / Imaging EKG Interpretation Atrial fibrillation at 77bpm with a LBBB. Unchanged Imaging Chest CTA - 1. No evidence for pulmonary emboli to the segmental level. Please see above comments. 2. Cardiomegaly with calcified coronary atherosclerotic disease. Ascending thoracic aneurysm measures 4.6 cm which is unchanged. 3. Reflux of contrast into the hepatic veins suggest right heart dysfunction. 4. Small right-sided pleural effusion slightly enlarged from prior exams. CXR - 1. Low volumes with mild central hypoventilatory change. Possible small right effusion Assessment and Plan Problems: (1) HFrEF (heart failure with reduced ejection fraction) Status: Acute Assessment & Plan: He presented with sudden onset of SOB and mild CP that awoke him last night. His troponin is negative. His BNP is elevated but unchanged. He does have a new small right sided pleural effusion on the right. He was given a dose of IV Lasix in the ER and now is feeling back to baseline. I rec ommended that he come in to the hospital so we can follow him and make sure he doesn't have any more events. He initially was onboard with the plan, but has since changed his mind, which I think is fine. He is to come back if his symptoms recur. I agree with giving him an extra dose of Lasix for a few days and should have close follow up with his PCP. Copies to: YORDY AVERY MD; LEÓN HATCH MD ; Venous Thromboembolism Antithrombotics Is Pt On Any Antithrombotics?: Yes Exam Sepsis Risk: No Definite Risk MEHDI BARBOZA MD Jan 05, 2018 11:34
== END 2018-01-05 11:48 | disposition home or self-care (01) ==
LOC: ER 07:19 → MED 11:09 → UNDOADMIN 11:09 → ER 11:48
DX: I50.33 Acute on chronic diastolic (congestive) heart failure (principal); I44.7 Left bundle-branch block, unspecified
CPT/HCPCS: 71045; 71275; 80162; 83880; 84484; 85025; 85610; 85730; 93005; 96361; 96374; 96375; 99284; J1940; J3010; J7050; Q9967; 82040; 82247; 82310; 82374; 82435; 82565; 82947; 84075; 84132; 84155; 84295; 84450; 84460; 84520

== ENCOUNTER → 2018-01-05 | Outpatient (CLI) | payer MEDICARE, OTHER ==
[2016-06-09 18:04] VITALS: BMI 21.6
[~2018-01-05] MED LIST changes: +FURO20TA19 PO; +GUAI237L21 PO; +MAG-65 PO; +MOM PO
== END ==
LOC: AMB 06:54
PROVIDERS: ATTEND Nurse Practitioner
DX: R06.02 Shortness of breath (principal); R20.0 Anesthesia of skin; R07.9 Chest pain, unspecified
CPT/HCPCS: A0425; A0427

== ENCOUNTER → 2018-01-11 | Outpatient (CLI) | payer MEDICARE, OTHER ==
[2016-06-09 18:04] VITALS: BMI 21.6
[~2018-01-11] MED LIST changes: +FURO20TA19 PO; +GUAI237L21 PO; +MAG-65 PO; +MOM PO
== END ==
LOC: LAB 09:42
PROVIDERS: ATTEND Internal Medicine
DX: I50.21 Acute systolic (congestive) heart failure (principal)
CPT/HCPCS: 36415; 82040; 82247; 82310; 82374; 82435; 82565; 82947; 83880; 84075; 84132; 84155; 84295; 84450; 84460; 84520

== ENCOUNTER 2018-01-19 19:23 | Inpatient (IN) | payer MEDICARE, OTHER ==
[~2018-01-19] VITALS: Ht 180.3 cm; Wt 82.7 kg
[~2018-01-19 19:23] MED LIST changes: -CALC-733 PO; -CALC-83 PO; -CHOL100059 PO; -CHOL200025 PO
--- NOTE | 2018-01-19 19:41 | ER Report ---
History and Physical Time Seen By MD: 19:41 Hx. of Stated Complaint: SOB x 3 days HPI/ROS CHIEF COMPLAINT: Shortness of breath HISTORY OF PRESENT ILLNESS: This is an 87-year-old male who presents [facility] the emergency department [facility] for shortness of breath. Patient states that over the last 3-4 days he's had increasing shortness of breath in addition to this he has had large amounts of nausea and vomiting. Patient states he's unable to lay flat on his back without having increased shortness of breath, feels better sitting upright. Patient appears very uncomfortable at the bedside. Denies fevers or chills. No chest pain. No headaches. No rashes. No dysuria. No diarrhea, he states he does have good bowel movements. REVIEW OF SYSTEMS: Constitutional: No fever, no chills. Eyes: No discharge. ENT: No sore throat. Cardiovascular: No chest pain, no palpitations. Respiratory: As above. Gastrointestinal: As above. Genitourinary: No hematuria. Musculoskeletal: No back pain. Skin: No rashes. Neurological: No headache. Allergies: Coded Allergies: gemfibrozil (Verified Allergy, Intermediate, RASH, FATIGUE, 01/19/18) levofloxacin (Verified Allergy, Intermediate, rash, fatigue, Achilles tendon problem, 01/19/18) lovastatin (Verified Adverse Reaction, Intermediate, MYALGIA, 01/19/18) morphine (Verified Adverse Reaction, Intermediate, HALLUCINATIONS, 01/19/18) simvastatin (Verified Adverse Reaction, Mild, MYALGIA, 01/19/18) Home Meds Active Scripts Potassium Chloride (KLOR-CON 10) 10 Meq Tablet.er, 1 TAB PO TIDCF, #90 TAB 1 Refill Prov:YORDY AVERY MD 01/18/18 Furosemide (FUROSEMIDE) 40 Mg Tablet, 1.5 TAB PO DAILY, #135 TAB 3 Refills 1 tab po q am, 1/2 tab po q pm Prov:YORDY AVERY MD 01/12/18 Omeprazole (OMEPRAZOLE) 20 Mg Capsule.dr, 1 CAP PO QDAY, #90 CAP 1 Refill Prov:YORDY AVERY MD 12/23/17 Fish Oil/Dha/Epa (FISH OIL 1,200 MG FISH OIL) 1 Each Capsule, 1 CAP PO QDAY, #90 CAP 4 Refills Prov:YORDY VAERY MD 06/13/17 Lactobacillus Combo No.10 (PROBIOTIC) 1 Each Capsule, 1 EACH PO QDAY, #90 CAP 1 Refill Prov:YORDY AVERY MD 06/08/17 Ibandronate Sodium (BONIVA) 150 Mg Tablet, 1 TAB PO Q30D, #4 TAB 6 Refills Prov:YORDY AVERY MD 04/11/17 Tamsulosin Hcl (FLOMAX) 0.4 Mg Cap.er.24h, 1 CAP PO QDAY, #90 CAPSULE 3 Refills Prov:YORDY AVERY MD 04/11/17 Reported Medications Cholecalciferol (Vitamin D3) (VITAMIN D3) 2,000 Unit Capsule, 2000 UNIT PO DAILY, CAPSULE 01/19/18 Digoxin (DIGOXIN) 250 Mcg Tablet, 250 MCG PO DAILY 01/19/18 Guaifenesin/Dextromethorphan (Robitussin Cough-Chest Dm Liq) 100 Mg-5 Mg/5 Ml Liquid, 5 ML PO Q4-6H PRN for COUGH 01/05/18 Mag Hydrox/Aluminum Hyd/Simeth (Maalox Advanced Suspension) 200 Mg-200 Mg-20 Mg/5 Ml Oral.susp, 15 ML PO Q4H PRN for INDIGESTION 01/05/18 Ondansetron (ZOFRAN ODT) 4 Mg Tab.rapdis, 8 MG PO Q8H PRN for NAUSEA, TAB.CRYSTAL 01/05/18 Magnesium Hydroxide (MILK OF MAGNESIA) 400 Mg/5 Ml Oral.susp, 15-30 ML PO PRN, BOTTLE 01/05/18 Loperamide HCl (Imodium A-D) 2 Mg Capsule, 2 TAB PO PRN 01/05/18 Warfarin Sodium (WARFARIN SODIUM) 5 Mg Tablet, 7.5 MG PO MON, FRI, TAB 01/05/18 Warfarin Sodium (WARFARIN SODIUM) 5 Mg Tablet, 5 MG PO , TUE, TUE, , SA, TAB 01/05/18 Calcium Carbonate/Vitamin D3 (Calcium 500 + Vit D 400 Tablet) 1 Each Tablet, 1 TAB PO DAILY 01/05/18 Carvedilol (COREG) 25 Mg Tablet, 1 TAB PO BID, TAB 11/02/17 Calcium Carbonate/Mag Hydrox (ANTACID CHEWABLE TABLET) 1 Each Tab.chew, 2 TAB PO Q2H PRN for indigestion, TAB.CHEW 10/13/17 Folic Acid/Multivits-Min/Lut (MULTI-VITAMIN GUMMIES) 1 Each Tab.chew, 1 EACH PO, TAB.CHEW 07/24/17 Acetaminophen (ACETAMINOPHEN) 325 Mg Tablet, 1-2 TAB PO Q4H PRN for PAIN, TAB 07/20/17 Oxygen (OXYGEN) Inha, 2 L INH HS, L 03/31/17 Vit A,C & E/Lutein/Minerals (OCUVITE TABLET) 1 Each Tablet, 1 TAB PO QDAY 12/23/16 Discontinued Reported Medications Cholecalciferol (Vitamin D3) (VITAMIN D3) 1,000 Unit Capsule, 1000 UNIT PO, CAPSULE 01/19/18 Digoxin (DIGOXIN) 125 Mcg Tablet, 1 TAB PO QDAY 10/06/17 Discontinued Scripts Cyanocobalamin (Vitamin B-12) (VITAMIN B-12) 1,000 Mcg Tablet, 1 TAB PO QDAY, #90 TAB 3 Refills Prov:YORDY AVERY MD 07/13/16 Furosemide (LASIX) 20 Mg Tablet, 1 TAB PO QPM for 7 Days, #7 TAB 0 Refills Prov:LEÓN HATCH MD 01/05/18 Past Medical/Surgical History The patient has a past medical and surgical history of neuropathy, abnormal stress test, atrial fibrillation, history of smoking, bilateral pulmonary emboli, small bowel obstruction, GERD, inguinal hernia repair bilaterally, chronic back pain, wears reading glasses, hard of hearing, prostatectomy, Hodgkin's lymphoma, artificial urinary sphincter, tonsillectomy, cataract surgery. Reviewed Nurses Notes: Yes Hx Smoking: Yes Smoking Status: Former Smoker Exposure to Second Hand Smoke?: Yes (father smoked 1 cig per day) Hx Substance Use Disorder: No Hx Alcohol Use: No Constitutional Vital Sign - Last 24 Hours 01/19/18 01/19/18 01/19/18 01/19/18 19:27 19:28 19:30 19:33 Temp 98.0 Pulse 87 90 86 Resp 26 0 B/P (MAP) 99/74 99/74 (82) 105/66 (79) Pulse Ox 94 94 96 O2 Delivery Nasal Cannula 01/19/18 01/19/18 01/19/18 01/19/18 19:35 19:38 19:43 19:48 Pulse 86 86 85 Resp 35 12 17 Pulse Ox 95 95 94 O2 Flow Rate 2.0 01/19/18 01/19/18 01/19/18 01/19/18 19:53 19:58 20:00 20:03 Pulse 81 82 80 Resp 43 25 14 B/P (MAP) 96/69 (78) Pulse Ox 95 95 93 01/19/18 01/19/18 01/19/18 01/19/18 20:08 20:13 20:18 20:23 Pulse 83 87 80 84 Resp 18 17 14 31 Pulse Ox 90 94 91 94 01/19/18 01/19/18 01/19/18 01/19/18 20:28 20:30 20:33 20:38 Pulse 82 76 83 Resp 25 19 20 B/P (MAP) 101/73 (82) Pulse Ox 93 94 88 01/19/18 01/19/18 01/19/18 01/19/18 20:43 20:48 20:53 20:58 Pulse 84 ? 76 Resp 27 10 Pulse Ox 93 94 01/19/18 01/19/18 01/19/18 01/19/18 21:00 21:03 21:08 21:13 Pulse 84 83 80 Resp 13 25 22 B/P (MAP) 96/55 (69) Pulse Ox 94 95 96 01/19/18 01/19/18 01/19/18 01/19/18 21:18 21:23 21:23 21:23 Pulse 74 3 83 Resp 26 20 14 Pulse Ox 93 97 94 O2 Delivery Nasal Cannula O2 Flow Rate 2.0 01/19/18 01/19/18 01/19/18 01/19/18 21:26 21:30 21:53 22:00 Pulse 74 81 Resp 20 23 B/P (MAP) 99/73 (82) 105/75 (85) Pulse Ox 93 Physical Exam General Appearance: The patient is alert, has no immediate need for airway protection and no signs of toxicity, eyes are closed, patient does not appear to be in distress although he is breathing shallow, no use of accessory muscles, sitting erect. Eyes: Pupils equal and round no pallor or injection. ENT, Mouth: Mucous membranes are moist. Respiratory: There are no retractions, lungs are diminished throughout, clear to auscultation. Cardiovascular: Irregular rate and rhythm, no murmurs, clicks or rubs. Gastrointestinal: Abdomen is soft and non tender, no masses, bowel sounds normal. Neurological: Alert and oriented 4. Moving all extremities. Following all commands. No focal neuro deficits. Skin: Warm and dry, no rashes. Musculoskeletal: Neck is supple non tender. Extremities are nontender, nonswollen and have full range of motion. DIFFERENTIAL DIAGNOSIS: After history and physical exam differential diagnosis was considered for shortness of breath including but not limited to pulmonary infectious process, COPD, asthma, pulmonary embolus and congestive heart failure. Medical Decision Making Data Points Result Diagram: 01/19/18210801/19/182108 Laboratory Hematology Test 01/19/18 19:20 01/19/18 20:55 01/19/18 21:09 Troponin I < 0.012 ng/ml B-Type Natriuretic Peptide 1580 pg/ml (0-100) Urine Color Yellow Urine Clarity Clear Urine pH 6.0 pH (4.8-9.5) Urine Specific Slaughters 1.010 Urine Protein 100 mg/dL (NEGATIVE) Urine Glucose (UA) Negative mg/dL (NEGATIVE) Urine Ketones Negative mg/dL (NEGATIVE) Urine Blood Negative (NEGATIVE) Urine Nitrite Negative (NEGATIVE) Urine Bilirubin Negative (NEGATIVE) Urine Urobilinogen Negative mg/dL (0.2-1.9) Urine Leukocyte Esterase Negative (NEGATIVE) Urine RBC <1 /HPF (0-2/HPF) Urine WBC 1 /HPF (0-5/HPF) Urine Squamous Epithelial Cells Few /LPF (</=FEW) Urine Bacteria Few /HPF (NONE-FEW) Urine Hyaline Casts Few /LPF (NONE-FEW) Urine Mucus None /HPF (NONE-FEW) Red Blood Count 4.55 M/uL (4.00-5.60) Mean Corpuscular Volume 74.0 fL (80.0-96.0) Mean Corpuscular Hemoglobin 23.6 pg (26.0-33.0) Mean Corpuscular Hemoglobin Concent 31.9 g/dL (32.0-36.0) Red Cell Distribution Width 20.8 % (11.5-14.5) Mean Platelet Volume 8.8 fL (7.2-11.1) Neutrophils (%) (Auto) 73.8 % (39.4-72.5) Lymphocytes (%) (Auto) 11.6 % (17.6-49.6) Monocytes (%) (Auto) 11.8 % (4.1-12.4) Eosinophils (%) (Auto) 2.1 % (0.4-6.7) Basophils (%) (Auto) 0.7 % (0.3-1.4) Nucleated RBC Relative Count (auto) 0.1 /100WBC Neutrophils # (Auto) 3.6 K/uL (2.0-7.4) Lymphocytes # (Auto) 0.6 K/uL (1.3-3.6) Monocytes # (Auto) 0.6 K/uL (0.3-1.0) Eosinophils # (Auto) 0.1 K/uL (0.0-0.5) Basophils # (Auto) 0.0 K/uL (0.0-0.1) Nucleated RBC Absolute Count (auto) 0.00 K/uL Peripheral Blood Smear Y/N Sodium Level 131 mmol/L (137-145) Potassium Level 5.2 mmol/L (3.5-5.0) Chloride Level 102 mmol/L (98-107) Carbon Dioxide Level 19 mmol/L (22-30) Blood Urea Nitrogen 25 mg/dl (9-21) Creatinine 1.60 mg/dl (0.66-1.25) Glomerular Filtration Rate Calc 41.3 Random Glucose 107 mg/dl (75-110) Lactate 1.6 mmol/L (0.7-2.1) Calcium Level 8.7 mg/dl (8.4-10.2) Total Bilirubin 0.5 mg/dl (0.2-1.3) Aspartate Amino Transf (AST/SGOT) 20 U/L (0-35) Alanine Aminotransferase (ALT/SGPT) 32 U/L (0-56) Alkaline Phosphatase 68 U/L (0-126) Total Protein 6.8 g/dl (6.3-8.2) Albumin 3.5 g/dl (3.5-5.0) Chemistry Test 01/19/18 19:20 01/19/18 20:55 01/19/18 21:09 Troponin I < 0.012 ng/ml B-Type Natriuretic Peptide 1580 pg/ml (0-100) Urine Color Yellow Urine Clarity Clear Urine pH 6.0 pH (4.8-9.5) Urine Specific [place] 1.010 Urine Protein 100 mg/dL (NEGATIVE) Urine Glucose (UA) Negative mg/dL (NEGATIVE) Urine Ketones Negative mg/dL (NEGATIVE) Urine Blood Negative (NEGATIVE) Urine Nitrite Negative (NEGATIVE) Urine Bilirubin Negative (NEGATIVE) Urine Urobilinogen Negative mg/dL (0.2-1.9) Urine Leukocyte Esterase Negative (NEGATIVE) Urine RBC <1 /HPF (0-2/HPF) Urine WBC 1 /HPF (0-5/HPF) Urine Squamous Epithelial Cells Few /LPF (</=FEW) Urine Bacteria Few /HPF (NONE-FEW) Urine Hyaline Casts Few /LPF (NONE-FEW) Urine Mucus None /HPF (NONE-FEW) White Blood Count 4.9 k/uL (4.5-11.0) Red Blood Count 4.55 M/uL (4.00-5.60) Hemoglobin 10.8 g/dL (14.0-18.0) Hematocrit 33.7 % (42.0-52.0) Mean Corpuscular Volume 74.0 fL (80.0-96.0) Mean Corpuscular Hemoglobin 23.6 pg (26.0-33.0) Mean Corpuscular Hemoglobin Concent 31.9 g/dL (32.0-36.0) Red Cell Distribution Width 20.8 % (11.5-14.5) Platelet Count 170 K/uL (150-450) Mean Platelet Volume 8.8 fL (7.2-11.1) Neutrophils (%) (Auto) 73.8 % (39.4-72.5) Lymphocytes (%) (Auto) 11.6 % (17.6-49.6) Monocytes (%) (Auto) 11.8 % (4.1-12.4) Eosinophils (%) (Auto) 2.1 % (0.4-6.7) Basophils (%) (Auto) 0.7 % (0.3-1.4) Nucleated RBC Relative Count (auto) 0.1 /100WBC Neutrophils # (Auto) 3.6 K/uL (2.0-7.4) Lymphocytes # (Auto) 0.6 K/uL (1.3-3.6) Monocytes # (Auto) 0.6 K/uL (0.3-1.0) Eosinophils # (Auto) 0.1 K/uL (0.0-0.5) Basophils # (Auto) 0.0 K/uL (0.0-0.1) Nucleated RBC Absolute Count (auto) 0.00 K/uL Peripheral Blood Smear Y/N Glomerular Filtration Rate Calc 41.3 Lactate 1.6 mmol/L (0.7-2.1) Calcium Level 8.7 mg/dl (8.4-10.2) Total Bilirubin 0.5 mg/dl (0.2-1.3) Aspartate Amino Transf (AST/SGOT) 20 U/L (0-35) Alanine Aminotransferase (ALT/SGPT) 32 U/L (0-56) Alkaline Phosphatase 68 U/L (0-126) Total Protein 6.8 g/dl (6.3-8.2) Albumin 3.5 g/dl (3.5-5.0) Urinalysis Test 01/19/18 20:55 Urine Color Yellow Urine Clarity Clear Urine pH 6.0 pH (4.8-9.5) Urine Specific Slaughters 1.010 Urine Protein 100 mg/dL (NEGATIVE) Urine Glucose (UA) Negative mg/dL (NEGATIVE) Urine Ketones Negative mg/dL (NEGATIVE) Urine Blood Negative (NEGATIVE) Urine Nitrite Negative (NEGATIVE) Urine Bilirubin Negative (NEGATIVE) Urine Urobilinogen Negative mg/dL (0.2-1.9) Urine Leukocyte Esterase Negative (NEGATIVE) Urine RBC <1 /HPF (0-2/HPF) Urine WBC 1 /HPF (0-5/HPF) Urine Squamous Epithelial Cells Few /LPF (</=FEW) Urine Bacteria Few /HPF (NONE-FEW) Urine Hyaline Casts Few /LPF (NONE-FEW) Urine Mucus None /HPF (NONE-FEW) EKG/Imaging EKG Interpretation 12 lead EKG: Time of EKG 1951. Rhythm: Atrial fibrillation with a junctional rhythm. [place]: Left axis QRS: normal ST segments: No ST depression or elevation identified. Left bundle branch block. No changes noted from the 01/05/2018 EKG. Imaging Location: [facility] - [place] Patient: Lyle Lange : 1930 Visit/Account:[id number] Date of Sevice: 01/19/2018 Examination: CHEST SINGLE AP Comparison: 01/05/2018 and earlier. History: Respiratory distress. Findings: Cardiac and hilar contour is mildly enlarged but unchanged. Power injectable infusion port position is unchanged. Mild chronic interstitial thickening. Mild volume loss most notably in the right lower lung. No new or enlarging consolidation, nodule, or evidence of acute peribronchial inflammation. No pneumothorax, edema, or effusion. Osseous structures are intact. IMPRESSION: No findings of acute cardiopulmonary disease. Report Dictated By: Hank Stiles MD at 01/19/2018 8:30 PM Report E-Signed By: Hank Stiles MD at 01/19/2018 8:33 PM [id number] ED Course/Re-evaluation Clinical Indication for ER IV: Hydration, IV Access ED Course The patient was admitted to a room. A history and physical were obtained. Differential diagnoses were considered. An IV was started. A CBC, CMP, troponin and BNP were obtained. Negative troponin, BNP 1580,, similar studies in the rec ent past. Hemoglobin and hematocrit 10.8 and 33.7, similar to previous studies. A single lead chest x-ray was negative for any acute cardiopulmonary process, similar to previous x-rays. Patient was given a DuoNeb with some mild relief. Patient was given 500 mL normal saline at 250 L an hour. I did review these results with the patient, patient still very concerned with his increased shortness of breath, I did tell him with his orthopnea and his kidney function I did recommend admission of the hospital, I did tell him I would speak with Dr. Braga the hospitalist on-call. The patient is agreeable at this time. The patient was given 40mg IV lasix and started on Bipap. 01/19/2018 10:49:[address] Sutherland the hospitalist production material handler has accepted the patient into the hospitalist services, for CHF exacerbation. Decision to Disposition Date: Jan 19, 2018 Decision to Disposition Time: 22:49 Depart Departure Latest Vital Signs Vital Signs Date Time Temp Pulse Resp B/P (MAP) Pulse Ox O2 Delivery O2 Flow Rate FiO2 01/19/18 22:00 105/75 (85) 01/19/18 21:53 81 23 93 01/19/18 21:23 Nasal Cannula 2.0 01/19/18 19:27 98.0 Impression: Primary Impression: CHF exacerbation Additional Impressions: Dyspnea Orthopnea Condition: Improved Disposition: Admitted from ER Referrals: YORDY AVERY MD (PCP) Problem Qualifiers Primary Impression: CHF exacerbation Heart failure type: unspecified Qualified Codes: I50.9 - Heart failure, unspecified Additional Impressions: Dyspnea Dyspnea type: orthopnea Qualified Codes: R06.01 - Orthopnea ROSA MERCEDES CONE TREATER-BC Jan 19, 2018 19:41
[2018-01-19] MEDS ORDERED: NS(*) 0.9% 500 ML BAG 500 ML IV ONE (19:46)
[2018-01-19] MEDS ORDERED: ONDANSETRON 4 MG/2 ML VIAL IVP ONE (19:50)
--- NOTE | 2018-01-19 20:23 | EKG ---
FACILITY: [facility] - [place] PATIENT NAME: SANDRA EVANGELISTA : [id number] MR: [id number] V: [id number] EXAM DATE: ORDERING PHYSICIAN: ROSA MERCEDES TECHNOLOGIST: MARVEL Test Reason : DYSPNEA Blood Pressure : / mmHG Vent. Rate : 080 BPM Atrial Rate : 096 BPM P-R Int : 000 ms QRS Dur : 140 ms QT Int : 398 ms P-R-T Axes : 000 -41 136 degrees QTc Int : 459 ms Atrial fibrillation Left axis deviation Left bundle branch block Abnormal ECG When compared with ECG of 05-JAN-2018 07:19, No significant change was found Confirmed by MEHDI BARBOZA ([id number]) on 01/19/2018 10:07:17 PM Referred By: Confirmed By:MEHDI BARBOZA
--- NOTE | 2018-01-19 20:36 | RADIOLOGY IMAGING REPORT ---
FACILITY: [facility] PATIENT NAME: Lyle Lange : 1930 MR: [id number] V: [id number] EXAM DATE: ORDERING PHYSICIAN: ROSA MERCEDES TECHNOLOGIST: Location: [facility] Patient: Lyle Lange : 1930 Visit/Account:[id number] Date of Sevice: 01/19/2018 Examination: CHEST SINGLE AP Comparison: 01/05/2018 and earlier. History: Respiratory distress. Findings: Cardiac and hilar contour is mildly enlarged but unchanged. Power injectable infusion port position is unchanged. Mild chronic interstitial thickening. Mild volume loss most notably in the right lower lung. No new o r enlarging consolidation, nodule, or evidence of acute peribronchial inflammation. No pneumothorax, edema, or effusion. Osseous structures are intact. IMPRESSION: No findings of acute cardiopulmonary disease. Report Dictated By: Hank Stiles MD at 01/19/2018 8:30 PM Report E-Signed By: Hank Stiles MD at 01/19/2018 8:33 PM WSN:[id number]
[2018-01-19] MEDS ORDERED: ALBUTEROL/IPRATROPIUM 3 ML NEB NEB ONE (21:15)
[2018-01-19 21:18] LABS: PLATELET COUNT, AUTOMATED 170 K/uL (150-450)
[2018-01-19] MEDS ORDERED: CHOL100059 PO (21:49)
[2018-01-19] MEDS ORDERED: CHOL200025 PO (21:49)
[2018-01-19] MEDS ORDERED: DIGO250T76 PO (21:49)
[2018-01-19] MEDS ORDERED: FUROSEMIDE 40 MG/4 ML VIAL IVP ONE (22:45)
[2018-01-19] MEDS ORDERED: INFLUENZA VIRUS VAC 0.5ML SYR IM ONLY ONE (23:30)
[2018-01-19] MEDS ORDERED: CALCIUM CARBONATE 500 MG CHEW PO PRN (23:30)
[2018-01-19] MEDS ORDERED: MAGNESIUM HYDROXIDE* 30ML UDCP PO PRN (23:30)
[2018-01-19] MEDS ORDERED: ONDANSETRON 4 MG/2 ML VIAL IVP PRN (23:30)
[2018-01-19] MEDS ORDERED: ACETAMINOPHEN 325 MG TAB PO PRN (23:30)
[2018-01-19 23:33] VITALS: BP 99/67
--- NOTE | 2018-01-20 00:03 | History & Physical ---
History of Present Illness History of Present Illness 87yo male with a h/o HFrEF and atrial fibrillation who came to the ER for worsening SOB for a week. He was in the ER 2 weeks for sudden onset of SOB, that improved with Lasix. He went home on 7 days of an increased dose of Lasix. He had f/u with his PCP a week ago and he was still doing well. The increased dose of Lasix was continued. However, since then he has been getting more SOB, has worsening orthopnea, has gained 4lbs, has a cough/sore throat and is not sleeping well. He chronically has "belly" problems and can have nausea. However, in the last week he did have a vomiting episode. He denies LE edema/cp/f/c/diarrhea. History Problems: (1) Atrial fibrillation Status: Chronic (2) CKD (chronic kidney disease) stage 3, GFR 30-59 ml/min Status: Chronic (3) HFrEF (heart failure with reduced ejection fraction) Status: Acute (4) Esophageal reflux Status: Chronic (5) Pulmonary embolism Status: Chronic (6) Aneurysm of ascending aorta Status: Chronic (7) Pure hypercholesterolemia Status: Chronic (8) Neurogenic claudication Status: Acute (9) History of prostate cancer Status: Chronic (10) Adenocarcinoma of cecum Status: Chronic (11) History of hodgkin's lymphoma Status: Chronic (12) Multinodular goiter (13) Neuropathy Status: Chronic Home Meds Active Scripts Potassium Chloride (KLOR-CON 10) 10 Meq Tablet.er, 1 TAB PO TIDCF, #90 TAB 1 Refill Prov:YORDY AVERY MD 01/18/18 Furosemide (FUROSEMIDE) 40 Mg Tablet, 1.5 TAB PO DAILY, #135 TAB 3 Refills 1 tab po q am, 1/2 tab po q pm Prov:YORDY AVERY MD 01/12/18 Omeprazole (OMEPRAZOLE) 20 Mg Capsule.dr, 1 CAP PO QDAY, #90 CAP 1 Refill Prov:YORDY AVERY MD 12/23/17 Fish Oil/Dha/Epa (FISH OIL 1,200 MG FISH OIL) 1 Each Capsule, 1 CAP PO QDAY, #90 CAP 4 Refills Prov:YORDY AVERY MD 06/13/17 Lactobacillus Combo No.10 (PROBIOTIC) 1 Each Capsule, 1 EACH PO QDAY, #90 CAP 1 Refill Prov:YORDY AVERY MD 06/08/17 Ibandronate Sodium (BONIVA) 150 Mg Tablet, 1 TAB PO Q30D, #4 TAB 6 Refills Prov:YORDY AVERY MD 04/11/17 Tamsulosin Hcl (FLOMAX) 0.4 Mg Cap.er.24h, 1 CAP PO QDAY, #90 CAPSULE 3 Refills Prov:YORDY AVERY MD 04/11/17 Reported Medications Cholecalciferol (Vitamin D3) (VITAMIN D3) 2,000 Unit Capsule, 2000 UNIT PO DAILY, CAPSULE 01/19/18 Digoxin (DIGOXIN) 250 Mcg Tablet, 250 MCG PO DAILY 01/19/18 Guaifenesin/Dextromethorphan (Robitussin Cough-Chest Dm Liq) 100 Mg-5 Mg/5 Ml Liquid, 5 ML PO Q4-6H PRN for COUGH 01/05/18 Mag Hydrox/Aluminum Hyd/Simeth (Maalox Advanced Suspension) 200 Mg-200 Mg-20 Mg/5 Ml Oral.susp, 15 ML PO Q4H PRN for INDIGESTION 01/05/18 Ondansetron (ZOFRAN ODT) 4 Mg Tab.rapdis, 8 MG PO Q8H PRN for NAUSEA, TAB.CRYSTAL 01/05/18 Magnesium Hydroxide (MILK OF MAGNESIA) 400 Mg/5 Ml Oral.susp, 15-30 ML PO PRN, BOTTLE 01/05/18 Loperamide HCl (Imodium A-D) 2 Mg Capsule, 2 TAB PO PRN 01/05/18 Warfarin Sodium (WARFARIN SODIUM) 5 Mg Tablet, 7.5 MG PO TUE, TUE, TAB 01/05/18 Warfarin Sodium (WARFARIN SODIUM) 5 Mg Tablet, 5 MG PO , TUE, TUE, TH, SA, TAB 01/05/18 Calcium Carbonate/Vitamin D3 (Calcium 500 + Vit D 400 Tablet) 1 Each Tablet, 1 TAB PO DAILY 01/05/18 Carvedilol (COREG) 25 Mg Tablet, 1 TAB PO BID, TAB 11/02/17 Calcium Carbonate/Mag Hydrox (ANTACID CHEWABLE TABLET) 1 Each Tab.chew, 2 TAB PO Q2H PRN for indigestion, TAB.CHEW 10/13/17 Folic Acid/Multivits-Min/Lut (MULTI-VITAMIN GUMMIES) 1 Each Tab.chew, 1 EACH PO, TAB.CHEW 07/24/17 Acetaminophen (ACETAMINOPHEN) 325 Mg Tablet, 1-2 TAB PO Q4H PRN for PAIN, TAB 07/20/17 Oxygen (OXYGEN) Inha, 2 L INH HS, L 03/31/17 Vit A,C & E/Lutein/Minerals (OCUVITE TABLET) 1 Each Tablet, 1 TAB PO QDAY 12/23/16 Discontinued Reported Medications Cholecalciferol (Vitamin D3) (VITAMIN D3) 1,000 Unit Capsule, 1000 UNIT PO, CAPSULE 01/19/18 Digoxin (DIGOXIN) 125 Mcg Tablet, 1 TAB PO QDAY 10/06/17 Discontinued Scripts Cyanocobalamin (Vitamin B-12) (VITAMIN B-12) 1,000 Mcg Tablet, 1 TAB PO QDAY, #90 TAB 3 Refills Prov:YORDY AVERY MD 07/13/16 Furosemide (LASIX) 20 Mg Tablet, 1 TAB PO QPM for 7 Days, #7 TAB 0 Refills Prov:LEÓN HATCH MD 01/05/18 Allergies: Coded Allergies: gemfibrozil (Verified Allergy, Intermediate, RASH, FATIGUE, 01/19/18) levofloxacin (Verified Allergy, Intermediate, rash, fatigue, Achilles tendon problem, 01/19/18) lovastatin (Verified Adverse Reaction, Intermediate, MYALGIA, 01/19/18) morphine (Verified Adverse Reaction, Intermediate, HALLUCINATIONS, 01/19/18) simvastatin (Verified Adverse Reaction, Mild, MYALGIA, 01/19/18) Patient History: Colitis BROTHER OR SISTER, Age:82 Diabetes mellitus (DM) Maternal Grandmother, , Age:Unknown FH: heart disease FATHER, , Age:83 MOTHER, , Age:83 FH: prostate cancer Other Social/Family Hx Lives at [facility] with his . He never smoked cigarettes. Rarely drinks alcohol. Hx Smoking: Yes Smoking Status: Former Smoker Exposure to Second Hand Smoke?: Yes (father smoked 1 cig per day) Caffeine Intake: Coffee, Tea Caffeine/Cups Per Day: 1pd Hx Alcohol Use: No Hx Substance Use Disorder: No Review of Systems All Systems Reviewed/Normal: Yes, Except as Noted Exam Vital Signs Vital Signs Date Time Temp Pulse Resp B/P (MAP) Pulse Ox O2 Delivery O2 Flow Rate FiO2 01/19/18 23:05 83 92 01/19/18 22:35 11 01/19/18 22:30 112/82 (92) 01/19/18 21:23 Nasal Cannula 2.0 01/19/18 19:27 98.0 General Appearance: Alert, Awake, Other (tired with mild increased wob) Neuro: No Gross deficits Eyes: PERRLA Cardiovascular: No JVD, Other (irreg, irreg, no m/r/g) Respiratory: Clear to Auscultation GI: Abd Soft and Non-Tender Extremities: Edema (1+ pitting in shins bilaterally) Integumentary: No Jaundice, No Cyanosis Medical Decision Making Data Points Result Diagram: 01/19/18210801/19/182108 Item Value Date Time Hemoglobin 10.8 g/dL L 01/19/182108 Hemoglobin 11.7 g/dL L 01/05/18714 Neutrophils (%) (Auto) 73.8 % H 01/19/182108 Neutrophils (%) (Auto) 65.7 % 01/05/18714 Lactate 1.6 mmol/L 01/19/182108 Potassium Level 5.2 mmol/L H 01/19/182108 Creatinine 1.60 mg/dl H 01/19/182108 Troponin I < 0.012 ng/ml 01/19/181919 B-Type Natriuretic Peptide 1580 pg/ml H 01/19/181919 B-Type Natriuretic Peptide 885 pg/ml H 01/11/18944 Aspartate Amino Transf (AST/SGOT) 20 U/L 01/19/182108 Alanine Aminotransferase (ALT/SGPT) 32 U/L 01/19/182108 Alkaline Phosphatase 68 U/L 01/19/182108 Total Bilirubin 0.5 mg/dl 01/19/182108 B-Type Natriuretic Peptide 1450 pg/ml H 01/05/18 0715 B-Type Natriuretic Peptide 1470 pg/ml H 11/15/17 0754 Creatinine 1.40 mg/dl H 01/11/18 0945 Creatinine 1.30 mg/dl H 01/05/18 0715 Creatinine 1.20 mg/dl 11/14/17 0915 Creatinine 1.20 mg/dl 11/10/17 0956 Blood Urea Nitrogen 22 mg/dl H 11/10/17 0956 Blood Urea Nitrogen 20 mg/dl 11/14/17 0915 Blood Urea Nitrogen 22 mg/dl H 01/05/18 0715 Blood Urea Nitrogen 24 mg/dl H 01/11/18 0945 Blood Urea Nitrogen 25 mg/dl H 01/19/18 2109 EKG / Imaging EKG Interpretation Vent. Rate : 080 BPM Atrial Rate : 096 BPM P-R Int : 000 ms QRS Dur : 140 ms QT Int : 398 ms P-R-T Axes : 000 -41 136 degrees QTc Int : 459 ms Atrial fibrillation Left axis deviation Left bundle branch block Abnormal ECG When compared with ECG of 05-JAN-2018 07:19, No significant change was found Confirmed by MEHDI BARBOZA ([id number]) on 01/19/2018 10:07:17 PM Imaging CXR - No findings of acute cardiopulmonary disease. Assessment and Plan Problems: (1) HFrEF (heart failure with reduced ejection fraction) Status: Acute Assessment & Plan: He presented with a week of worsening SOB, orthopnea, cough, and 4 pound weight gain. He has been on a bigger dose of Lasix for the last 2 weeks. Continue chronic Coreg, give a dose of Lasix 40mg IV, and trial BIPAP. Will get an echo tomorrow. Previous echo on 11/10/17 showed an EF of 30-35%, g lobal hypokinesis, moderate LVH, moderate MR, and elevated RVSP. (2) Acute renal failure Status: Acute Assessment & Plan: His baseline creatinine is 1.0 to 1.2. His creatinine today is 1.6. Recheck tomorrow after IV Lasix. (3) Atrial fibrillation Status: Chronic Assessment & Plan: Chronically in atrial fibrillation. Rate controlled on Coreg and Digoxin. Will check a digoxin level. Stroke prophylaxis with warfarin. Check daily INR. (4) Pulmonary embolism Status: Chronic Assessment & Plan: Chronically on warfarin. See above. (5) Aneurysm of ascending aorta Status: Chronic Assessment & Plan: Thoracic aneurysm at 4.6cm, last checked on 01/[address] which was unchanged. (6) History of hodgkin's lymphoma Status: Chronic (7) History of colon cancer, stage I Status: Chronic (8) History of prostate cancer Status: Chronic (9) CKD (chronic kidney disease) stage 3, GFR 30-59 ml/min Status: Chronic Copies to: YORDY AVERY MD ; Venous Thromboembolism Antithrombotics Is Pt On Any Antithrombotics?: Yes Exam Sepsis Risk: No Definite Risk Problem Qualifiers (1) HFrEF (heart failure with reduced ejection fraction): Heart failure chronicity: acute on chronic Qualified Codes: I50.23 - Acute on chronic systolic (congestive) heart failure MEHDI BARBOZA MD Jan 20, 2018 00:03
[2018-01-20 02:58] VITALS: BP 115/72
[2018-01-20 05:54] LABS: PLATELET COUNT, AUTOMATED 173 K/uL (150-450)
[2018-01-20 06:02] LABS: INR 2.29
[2018-01-20 08:48] VITALS: BP 114/61
[2018-01-20] MEDS: TAMSULOSIN HCL 0.4 MG CAP PO SCH (08:56)
[2018-01-20] MEDS: PANTOPRAZOLE SOD 40 MG TABEC PO SCH (08:57)
[2018-01-20] MEDS ORDERED: DIGOXIN 0.25 MG TAB PO SCH (09:00)
[2018-01-20] MEDS: CARVEDILOL 25 MG TABLET PO SCH ×2 (10:14→20:49)
[2018-01-20 10:28] VITALS: Ht 180.3 cm; Wt 82.7 kg
[2018-01-20 11:22] VITALS: BP 99/61
--- NOTE | 2018-01-20 12:03 | Hospitalist Progress Note ---
Subjective Progress Notes Subjective 87M admitted for dyspnea. Reports feeling slightly better than yesterday. Some cough, secretions. Patient Complains of: Respiratory: Cough, Congestion, Shortness of Breath Physical Exam Vital Signs Date Time Temp Pulse Resp B/P (MAP) Pulse Ox O2 Delivery O2 Flow Rate FiO2 01/20/18 11:22 97.6 85 20 99/61 (74) 90 Nasal Cannula 3.0 01/20/18 00:45 35.0 Intake and Output 01/20/18 06:59 Intake Total 500 ml Output Total 500 ml Balance 0 ml IV Total 500 ml Output Urine Total 500 ml General Appearance: Alert, Awake, No Acute Distress Neuro: No Gross deficits Eyes: PERRLA ENT: Normal Cardiovascular: Normal Rhythm & Peripheral Pulses Respiratory: Clear to Auscultation, Other (3L NC, CTAB) GI: Soft and Non-Tender Extremities: Soft and Non Tender, Warm, Pulses, Perfused; No Edema Result Diagram: 01/20/1830 01/20/18 0530 Assessment and Plan Problems: (1) HFrEF (heart failure with reduced ejection fraction) Status: Acute Assessment & Plan: He presented with a week of worsening SOB, orthopnea, cough, and 4 pound weight gain. He has been on a bigger dose of Lasix for the last 2 weeks. Continue chronic Coreg, gave a dose of Lasix 40mg IV, and trial BIPAP. Previous echo on 11/10/17 showed an EF of 30-35%, global hypokinesis, moderate LVH, moderate MR, and elevated RVSP. ECHO repeated, pending read. Given clinical euvolemia, CXR no evidence edema, elevated Cr suspect he is reasonably dry and that URI may be partially to blame for current symptoms. (2) Acute renal failure Status: Acute Assessment & Plan: His baseline creatinine is 1.0 to 1.2. Currently more elevated likely due to increased doses of Lasix. (3) Atrial fibrillation Status: Chronic Assessment & Plan: Chronically in atrial fibrillation. Rate controlled on Coreg and Digoxin. Will check a digoxin level. Stroke prophylaxis with warfarin. Check daily INR. (4) Pulmonary embolism Status: Chronic Assessment & Plan: Chronically on warfarin. See above. (5) Aneurysm of ascending aorta Status: Chronic Assessment & Plan: Thoracic aneurysm at 4.6cm, last checked on 01/[address] which was unchanged. (6) History of hodgkin's lymphoma Status: Chronic (7) History of colon cancer, stage I Status: Chronic (8) History of prostate cancer Status: Chronic (9) CKD (chronic kidney disease) stage 3, GFR 30-59 ml/min Status: Chronic Exam Sepsis Risk: No Definite Risk Problem Qualifiers (1) HFrEF (heart failure with reduced ejection fraction): Heart failure chronicity: acute on chronic Qualified Codes: I50.23 - Acute on chronic systolic (congestive) heart failure MAKSIM LUNA DO Jan 20, 2018 12:03
[2018-01-20] MEDS ORDERED: WARFARIN SOD 7.5 MG TAB PO SCH (13:00)
[2018-01-20 14:52] VITALS: BP 84/61
[2018-01-20] MEDS ORDERED: DIGO125T73 PO (16:56)
[2018-01-20] MEDS ORDERED: CALC-83 PO (17:09)
[2018-01-20 18:44] VITALS: BP 95/71
[2018-01-20] MEDS ORDERED: FUROSEMIDE 20 MG/2 ML VIAL IVP ONE (20:30)
[2018-01-20 22:38] VITALS: BP 98/72
[2018-01-21 03:11] VITALS: BP 97/70
[2018-01-21 06:09] LABS: INR 2.37
[2018-01-21 07:37] VITALS: BP 110/88
[2018-01-21] MEDS: PANTOPRAZOLE SOD 40 MG TABEC PO SCH (08:50)
[2018-01-21] MEDS: CARVEDILOL 25 MG TABLET PO SCH (08:50)
[2018-01-21] MEDS: TAMSULOSIN HCL 0.4 MG CAP PO SCH (08:51)
[2018-01-21] MEDS ORDERED: DIGOXIN 0.125 MG TAB PO SCH (09:00)
[2018-01-21] MEDS ORDERED: FURO-47 PO (09:26)
--- NOTE | 2018-01-21 09:44 | Hospitalist Depart ---
Discharge Summary Reason for Hosp/Final Diag: (1) HFrEF (heart failure with reduced ejection fraction) Status: Acute Hospital Course & Plan: He presented with a week of worsening SOB, orthopnea, cough, and 4 pound weight gain. He has been on an increased dose of Lasix (40mg AM and 20mg PM) for the last 2 weeks. Previous echocardiogram on 11/10/17 showed an EF of 30-35%, global hypokinesis, moderate LVH, moderate MR, and elevated RVSP. Echocardiogram was repeated during this admission and preliminary report was of no significant changes. He did receive a dose of IV Lasix in the ER, but we actually ended up holding his Lasix during the remainder of his admission as it appeared he was modestly dehydrated. His Lasix will be resumed at 40mg PO qAM. His symptoms did improve and may have been due to continuous oxygen therapy during his stay. He was tolerating activities better. He will be discharged on continuous oxygen at 2L via nasal cannula (rather than just nocturnal). He will follow up with Dr. Richey closely as an outpatient. (2) Acute renal failure Status: Acute Hospital Course & Plan: His baseline creatinine is 1.0 to 1.2. At the time of admission the creatinine was 1.6, most likely elevated due to the increased dose of Lasix. His Lasix was held and his creatinine returned to baseline. His Lasix will be resumed at his previous dose of 40mg PO qAM. He will need follow up lab in 1-2 weeks. (3) Atrial fibrillation Status: Chronic Hospital Course & Plan: Chronically in atrial fibrillation. Rate controlled with Coreg and Digoxin and stroke prophylaxis with warfarin. He will need to continue monitoring his INR with Dr. Richey/Dr. Neal Ruth PharmD. (4) Pulmonary embolism Status: Chronic Hospital Course & Plan: Chronically on warfarin. See above. (5) Aneurysm of ascending aorta Status: Chronic Hospital Course & Plan: Thoracic aneurysm at 4.6cm, last checked on 01/05/[address], which was unchanged. (6) History of hodgkin's lymphoma Status: Chronic (7) History of colon cancer, stage I Status: Chronic (8) History of prostate cancer Status: Chronic (9) CKD (chronic kidney disease) stage 3, GFR 30-59 ml/min Status: Chronic Departure Weight (Pounds): 182 Weight (Ounces): 5.0 Result Diagram: 01/20/18 0530 01/21/18509 Item Value Date Time Sodium Level 131 mmol/L L 01/19/182108 Potassium Level 5.2 mmol/L H 01/19/182108 Chloride Level 102 mmol/L 01/19/182108 Carbon Dioxide Level 19 mmol/L L 01/19/182108 Blood Urea Nitrogen 25 mg/dl H 01/19/182108 Creatinine 1.60 mg/dl H 01/19/182108 Glomerular Filtration Rate Calc 41.3 01/19/182108 Random Glucose 107 mg/dl 01/19/182108 Calcium Level 8.7 mg/dl 01/19/182108 Total Bilirubin 0.5 mg/dl 01/19/182108 Aspartate Amino Transf (AST/SGOT) 20 U/L 01/19/182108 Alanine Aminotransferase (ALT/SGPT) 32 U/L 01/19/182108 Alkaline Phosphatase 68 U/L 01/19/182108 Total Protein 6.8 g/dl 01/19/182108 Albumin 3.5 g/dl 01/19/182108 B-Type Natriuretic Peptide 1580 pg/ml H 01/19/181919 Troponin I < 0.012 ng/ml 01/19/181919 B-Type Natriuretic Peptide 1560 pg/ml H 01/20/18 05 Prothrombin Time 25.6 seconds H 01/20/18 0530 Prothromb Time International Ratio 2.29 01/20/18 05 Prothromb Time International Ratio 2.37 01/21/18 0510 Prothrombin Time 26.3 seconds H 01/21/18 05 White Blood Count 4.9 k/uL 01/19/182108 Hemoglobin 10.8 g/dL L 01/19/182108 Hematocrit 33.7 % L 01/19/182108 Platelet Count 170 K/uL 01/19/182108 Urine Color Yellow 01/19/182054 Urine Clarity Clear 01/19/182054 Urine pH 6.0 pH 01/19/182054 Urine Specific [place] 1.010 01/19/182054 Urine Protein 100 mg/dL 01/19/182054 Urine Glucose (UA) Negative mg/dL 01/19/182054 Urine Ketones Negative mg/dL 01/19/182054 Urine Blood Negative 01/19/182054 Urine Nitrite Negative 01/19/182054 Urine Bilirubin Negative 01/19/182054 Urine Urobilinogen Negative mg/dL 01/19/182054 Urine Leukocyte Esterase Negative 01/19/182054 Urine RBC <1 /HPF 01/19/182054 Urine WBC 1 /HPF 01/19/182054 Urine Squamous Epithelial Cells Few /LPF 01/19/182054 Urine Bacteria Few /HPF 01/19/182054 Urine Hyaline Casts Few /LPF 01/19/182054 Urine Mucus None /HPF 01/19/182054 Imaging PATIENT NAME: Sandra Evangelista : 1930 MR: [id number] V: [id number] EXAM DATE: ORDERING PHYSICIAN: ROSA MERCEDES TECHNOLOGIST: Location: [facility] Patient: Sandra Evangelista : 1930 Visit/Account:[id number] Date of Sevice: 01/19/2018 Examination: CHEST SINGLE AP Comparison: 01/05/2018 and earlier. History: Respiratory distress. Findings: Cardiac and hilar contour is mildly enlarged but unchanged. Power injectable infusion port position is unchanged. Mild chronic interstitial thickening. Mild volume loss most notably in the right lower lung. No new or enlarging consolidation, nodule, or evidence of acute peribronchial inflammation. No pneumothorax, edema, or effusion. Osseous structures are intact. IMPRESSION: No findings of acute cardiopulmonary disease. Report Dictated By: Hank Stiles MD at 01/19/2018 8:30 PM Report E-Signed By: Hank Stiles MD at 01/19/2018 8:33 PM WSN:[id number] EKG PATIENT NAME: SANDRA EVANGELISTA : [id number] MR: [id number] V: [id number] EXAM DATE: ORDERING PHYSICIAN: ROSA MERCEDES TECHNOLOGIST: MARVEL Test Reason : DYSPNEA Blood Pressure : / mmHG Vent. Rate : 080 BPM Atrial Rate : 096 BPM P-R Int : 000 ms QRS Dur : 140 ms QT Int : 398 ms P-R-T Axes : 000 -41 136 degrees QTc Int : 459 ms Atrial fibrillation Left axis deviation Left bundle branch block Abnormal ECG When compared with ECG of 05-JAN-2018 07:19, No significant change was found Confirmed by MEHDI BARBOZA ([id number]) on 01/19/2018 10:07:17 PM Referred By: Confirmed By:MEHDI BARBOZA Condition: Improved Discharge: Assisted Living Follow-Up Labs: INR, Other (CBC, BMP in 1-[address] Richey) Time Spent: > 30 min Discharge Instructions Home Meds Active Scripts Furosemide (FUROSEMIDE) 40 Mg Tablet, 1 TAB PO DAILY, #90 TAB 1 Refill 1 tab po qAM Prov:RAJWINDER SHAH MD 01/21/18 Potassium Chloride (KLOR-CON 10) 10 Meq Tablet.er, 1 TAB PO TIDCF, #90 TAB 1 Refill Prov:YORDY RICHEY MD 01/18/18 Omeprazole (OMEPRAZOLE) 20 Mg Capsule.dr, 1 CAP PO QDAY, #90 CAP 1 Refill Prov:YORDY RICHEY MD 12/23/17 Fish Oil/Dha/Epa (FISH OIL 1,200 MG FISH OIL) 1 Each Capsule, 1 CAP PO QDAY, #90 CAP 4 Refills Prov:YORDY RICHEY MD 06/13/17 Lactobacillus Combo No.10 (PROBIOTIC) 1 Each Capsule, 1 EACH PO QDAY, #90 CAP 1 Refill Prov:YORDY RICHEY MD 06/08/17 Ibandronate Sodium (BONIVA) 150 Mg Tablet, 1 TAB PO Q30D, #4 TAB 6 Refills Prov:YORDY RICHEY MD 04/11/17 Tamsulosin Hcl (FLOMAX) 0.4 Mg Cap.er.24h, 1 CAP PO QDAY, #90 CAPSULE 3 Refills Prov:YORDY RICHEY MD 04/11/17 Reported Medications Calcium Citrate/Vitamin D3 (Calcium Citrate +Vit D3 Tablet) 200 Mg Calcium-250 Unit Tablet, 400-500 INTLU PO DAILY, #1 01/20/18 Digoxin (DIGOXIN) 125 Mcg Tablet, 125 MCG PO DAILY 01/20/18 Cholecalciferol (Vitamin D3) (VITAMIN D3) 2,000 Unit Capsule, 2000 UNIT PO DAILY, CAPSULE 01/19/18 Guaifenesin/Dextromethorphan (Robitussin Cough-Chest Dm Liq) 100 Mg-5 Mg/5 Ml Liquid, 5 ML PO Q4-6H PRN for COUGH 01/05/18 Mag Hydrox/Aluminum Hyd/Simeth (Maalox Advanced Suspension) 200 Mg-200 Mg-20 Mg/5 Ml Oral.susp, 15 ML PO Q4H PRN for INDIGESTION 01/05/18 Ondansetron (ZOFRAN ODT) 4 Mg Tab.rapdis, 8 MG PO Q8H PRN for NAUSEA, TAB.CRYSTAL 01/05/18 Magnesium Hydroxide (MILK OF MAGNESIA) 400 Mg/5 Ml Oral.susp, 15-30 ML PO PRN, BOTTLE 01/05/18 Loperamide HCl (Imodium A-D) 2 Mg Capsule, 2 TAB PO PRN 01/05/18 Warfarin Sodium (WARFARIN SODIUM) 5 Mg Tablet, 7.5 MG PO MON, FRI, TAB 01/05/18 Warfarin Sodium (WARFARIN SODIUM) 5 Mg Tablet, 5 MG PO BERNARDO, TUE, TUE, , SA, TAB 01/05/18 Carvedilol (COREG) 25 Mg Tablet, 1 TAB PO BID, TAB 11/02/17 Calcium Carbonate/Mag Hydrox (ANTACID CHEWABLE TABLET) 1 Each Tab.chew, 2 TAB PO Q2H PRN for indigestion, TAB.CHEW 10/13/17 Folic Acid/Multivits-Min/Lut (MULTI-VITAMIN GUMMIES) 1 Each Tab.chew, 1 EACH PO, TAB.CHEW 07/24/17 Acetaminophen (ACETAMINOPHEN) 325 Mg Tablet, 1-2 TAB PO Q4H PRN for PAIN, TAB 07/20/17 Oxygen (OXYGEN) Inha, 2 L INH HS, L 03/31/17 Vit A,C & E/Lutein/Minerals (OCUVITE TABLET) 1 Each Tablet, 1 TAB PO QDAY 12/23/16 Discontinued Reported Medications Digoxin (DIGOXIN) 250 Mcg Tablet, 250 MCG PO DAILY 01/19/18 Calcium Carbonate/Vitamin D3 (Calcium 500 + Vit D 400 Tablet) 1 Each Tablet, 1 TAB PO DAILY 01/05/18 Cholecalciferol (Vitamin D3) (VITAMIN D3) 1,000 Unit Capsule, 1000 UNIT PO, CAPSULE 01/19/18 Digoxin (DIGOXIN) 125 Mcg Tablet, 1 TAB PO QDAY 10/06/17 Discontinued Scripts Cyanocobalamin (Vitamin B-12) (VITAMIN B-12) 1,000 Mcg Tablet, 1 TAB PO QDAY, #90 TAB 3 Refills Prov:YORDY RICHEY MD 07/13/16 Follow up Referrals: Internal Medicine @ [facility] with YORDY RICHEY MD Diet: No Added Salt (AUGUST) Activity: As Tolerated (with oxygen on), No Exertion Special Instructions: Continuous oxygen at 2L via nasal cannula. Follow up with Dr. Richey in next 1-2 weeks or sooner if any problems. Copies to: YORDY RICHEY MD ; Venous Thromboembolism Antithrombotics Is Pt On Any Antithrombotics?: Yes Problem Qualifiers (1) HFrEF (heart failure with reduced ejection fraction): Heart failure chronicity: acute on chronic Qualified Codes: I50.23 - Acute on chronic systolic (congestive) heart failure RAJWINDER SHAH MD Jan 21, 2018 09:44
[2018-01-21] MEDS ORDERED: WARFARIN SOD 5 MG TAB PO SCH (13:00)
== END 2018-01-21 11:15 | disposition home or self-care (01) | DRG 292 ==
LOC: ER 20:05 → MED 22:47
PROVIDERS: ADMIT Internal Medicine; ATTEND Internal Medicine
PROC: 5A09357 Assistance with Respiratory Ventilation, Less than 24 Consecutive Hours, Continuous Positive Airway Pressure (ICD-10-PCS; principal; 2018-01-19)
DX: I50.23 Acute on chronic systolic (congestive) heart failure (principal); N17.9 Acute kidney failure, unspecified; C81.90 Hodgkin lymphoma, unspecified, unspecified site; N18.3 Chronic kidney disease, stage 3 (moderate); E86.0 Dehydration; T50.1X5A Adverse effect of loop [high-ceiling] diuretics, initial encounter; I48.2 Chronic atrial fibrillation; K21.9 Gastro-esophageal reflux disease without esophagitis; G89.29 Other chronic pain; I71.9 Aortic aneurysm of unspecified site, without rupture; E04.2 Nontoxic multinodular goiter; G62.9 Polyneuropathy, unspecified; Z85.038 Personal history of other malignant neoplasm of large intestine; Z85.46 Personal history of malignant neoplasm of prostate; Z88.5 Allergy status to narcotic agent; Z88.8 Allergy status to other drugs, medicaments and biological substances; Z87.891 Personal history of nicotine dependence; Z79.01 Long term (current) use of anticoagulants; Z86.711 Personal history of pulmonary embolism
CPT/HCPCS: 36415; 71045; 81001; 82040; 82247; 82310; 82374; 82435; 82565; 82947; 83605; 83880; 84075; 84132; 84155; 84295; 84450; 84460; 84484; 84520; 85025; 85610; 93005; 93306; 94640; 94660; 96361; 96374; 96375; 99284; J1940; J2405; J7040

== ENCOUNTER → 2018-01-19 | Outpatient (CLI) | payer MEDICARE, OTHER ==
[~2018-01-19] MED LIST changes: +CALC-733 PO; +CALC-83 PO; +CHOL100059 PO; +CHOL200025 PO
[2018-01-20 10:28] VITALS: BMI 25.9
== END ==
LOC: AMB 19:02
PROVIDERS: ATTEND Nurse Practitioner
DX: R10.9 Unspecified abdominal pain (principal); R06.00 Dyspnea, unspecified; R53.1 Weakness; R11.0 Nausea
CPT/HCPCS: A0425; A0427

== ENCOUNTER → 2018-01-31 | Outpatient (CLI) | payer MEDICARE, OTHER ==
[2018-01-20 10:28] VITALS: BMI 25.9
[~2018-01-31] MED LIST changes: +CALC-733 PO; +CALC-83 PO; +CHOL100059 PO; +CHOL200025 PO
[2018-01-31 08:22] LABS: INR 3.06
== END ==
LOC: ZZSPRING 01:06
PROVIDERS: ATTEND Pharmacist Pharmacotherapy
DX: D68.59 Other primary thrombophilia (principal); Z86.711 Personal history of pulmonary embolism
CPT/HCPCS: 36415; 85610

== ENCOUNTER → 2018-01-31 | Outpatient (CLI) | payer MEDICARE, OTHER ==
[2018-01-20 10:28] VITALS: BMI 25.9
== END ==
LOC: ZZSPRING 01:06
PROVIDERS: ATTEND Internal Medicine
DX: I48.91 Unspecified atrial fibrillation (principal); R94.31 Abnormal electrocardiogram [ECG] [EKG]; I44.7 Left bundle-branch block, unspecified
CPT/HCPCS: 36415; 82040; 82247; 82310; 82374; 82435; 82565; 82947; 84075; 84132; 84155; 84295; 84450; 84460; 84520; 85027

== ENCOUNTER → 2018-02-07 | Outpatient (CLI) | payer MEDICARE, OTHER ==
[2018-01-20 10:28] VITALS: BMI 25.9
== END ==
LOC: ZZSPRING 00:56
PROVIDERS: ATTEND Internal Medicine Hematology
DX: I10 Essential (primary) hypertension (principal); I25.10 Atherosclerotic heart disease of native coronary artery without angina pectoris; I48.91 Unspecified atrial fibrillation; K21.9 Gastro-esophageal reflux disease without esophagitis
CPT/HCPCS: 36415; 82040; 82247; 82310; 82374; 82435; 82565; 82947; 83615; 84075; 84132; 84155; 84295; 84450; 84460; 84520; 84550; 85027; 85651

== ENCOUNTER 2018-03-02 14:00 | Outpatient (RCR) | payer MEDICARE, OTHER ==
[2018-01-20 10:28] VITALS: Wt 84.0 kg
[2018-02-22 08:28] VITALS: BP 102/76
[2018-02-22 08:46] LABS: PLATELET COUNT, AUTOMATED 165 K/uL (150-450)
--- NOTE | 2018-02-22 12:11 | RADIOLOGY IMAGING REPORT ---
FACILITY: [facility] - [place] PATIENT NAME: Lyle Lange : 1930 MR: [id number] V: [id number] EXAM DATE: ORDERING PHYSICIAN: DEANN SIDDIQUI TECHNOLOGIST: Location: [facility] Patient: Lyle Lange : 1930 Visit/Account:[id number] Date of Sevice: 02/22/2018 CHEST/AB/PELV W/CONTRAST HISTORY: Colon cancer, Hodgkin's lymphoma, current chemotherapy ADDITIONAL HISTORY: None. TECHNIQUE: Following administration of IV contrast axial images acquired through the chest abdomen a nd pelvis during the portal venous phase. Coronal and sagittal reformatting was also performed.Dose Lowering Technique One of the following dose optimization techniques was utilized in the performance of this exam: Autom ated exposure control; adjustment of the mA and/or kV according to the patient's size; or use of an i terative reconstruction technique. Specific details can be referenced in the facility's radiology C T exam operational policy. CONTRAST: 75 mL Isovue-370 COMPARISON: CTA chest January 05, 2018, CT chest abdomen pelvis January 17, 2017 FINDINGS: CHEST: Lungs/Pleura: Right apical bulla again noted small right pleural effusion slightly decreased. By ba silar atelectasis also slightly improved Mediastinum/lymph nodes: Negative. Heart/vessels: Cardiomegaly with calcified coronary arteries again seen. 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 Moderate size pericardial effusi on slightly more prominent near the ascending aorta appears relatively stable There is an implanted right IJ port distal tip in superior vena cava Bones/soft tissues: Large heterogeneous left-sided thyroid nodule and smaller right thyroid nodules again noted. The dominant left thyroid nodule has been previously biopsied There are spondylotic changes of the thoracic spine. No aggressive appearing bone lesions are seen ABDOMEN AND PELVIS: Hepatobiliary: There are postsurgical changes from a cholecystectomy Spleen: Negative. Pancreas: Negative. Adrenals: Negative. Kidneys ureters and bladder : . Numerous hypoattenuating mass in the kidneys appear relatively stabl e Genitalia: Prior ostectomy, penile prosthesis GI: Postsurgical changes from a right hemicolectomy. Duodenal diverticula noted Vessels/spaces/nodes: Stable soft tissue nodule just anterior to the coccyx. 1.3 x 1.1 cm gastrohep atic lymph node appears stable. There are mild to moderate atherosclerotic calcifications in the abdominal aorta and branch vessels Bones/soft tissues: Chronic compression fractures of L1-3 and five appear stable. Spondylotic eubanks es lumbar spine also again noted Additional findings: None pertinent. IMPRESSION: Postsurgical changes from a right hemicolectomy Small posterior layering right pleural effusion appears slightly decreased Moderate pericardial effusion unchanged. Stable gastrohepatic lymph node Additional chronic findings as detailed above Report Dictated By: Caryl Mims MD at 02/22/2018 11:24 AM Report E-Signed By: Caryl Mims MD at 02/22/2018 12:06 PM WSN:[email or web address]
[~2018-03-02 14:00] MED LIST changes: +ALTEPLASE RECOMB 2 MG VIAL IVP PRN; +DEXTROSE 5%(*) 100 ML BAG 100 ML IVPB PRN; +HEPARIN FLSH (PORT) 500 UN/5ML IVP PRN; +IBAN150T16 PO; -IBAN150T6 PO; +IOPAMIDOL 76% 50 ML INFUS BTL 100 ML ONE; +LIDOCAINE/SOD BICARB 8.4% SYR ID PRN; +NS(*) 0.9% 100 ML BAG 100 ML IVPB PRN; +NS(*) 0.9% 500 ML BAG 500 ML IV PRN; +WATER FOR INJ,STERILE 20 ML IVP PRN
[2018-03-02 14:07] VITALS: BP 112/72
--- NOTE | 2018-03-02 17:57 | EL-TARABILY ONCOLOGY NOTE ---
EVENT DATE: March 02, 2018 DIAGNOSES 1. Classic Hodgkin lymphoma involving the retroperitoneum. 2. Early stage colon cancer after polypectomy of cecal polyp. 3. Atrial fibrillation. 4. History of prostate cancer. 5. History of antiphospholipid antibody syndrome with history of pulmonary embolism in the past. 6. Hypertension. 7. Hypercholesterolemia. CHIEF COMPLAINT Patient is here today for followup of his Hodgkin's lymphoma. ONCOLOGY HISTORY The patient is an 87-year-old male who presented with low back pain and ankle weakness, so the patient had MRI of the lumbar spine without contrast, which was done on November 12, 2015. This MRI actually showed extensive retroperitoneal adenopathy suspicious for malignancy. There was 1.1 cm focal marrow lesion in lumbar 4, which was indeterminate. There was lumbar spondylosis resulting in foraminal stenosis, which appeared worse at lumbar 4-5 and lumbar 5-S1 on the right. The patient had a CT of chest, abdomen and pelvis with/without contrast done on November 17, 2015 which showed enlarged multinodular thyroid gland, post surgical changes from cystectomy and prostatectomy. There was massive retroperitoneal adenopathy, right common iliac lymph node measuring 3.8 cm, right iliac lymph node measured 2.6 cm. There was 9 mm hyperattenuated lesion in the dome of the spleen; could represent hemangioma or lymphangioma. There were numerous bilateral renal cysts. In the mediastinum there was 5.1 cm low dense space-occupying process in the right paratracheal region extending into the precarinal region and an additional 1.3 cm hypodensity in the subcarinal region. A bone scan was done on November 17, 2015 revealing a focal area of isotope in the left tenth costovertebral junction. Repeat CT of abdomen and pelvis with intravenous contrast done on December 05, 2015 did reveal right colonic clips, massive retroperitoneal adenopathy. The renal cyst seems to be simple in nature. The patient had a colonoscopy done on December 04, 2015 because of his history of colon polyps with retroperitoneal lymphadenopathy. There are polyps seen in the cecum, one polyp, two polyps in the ascending colon, one polyp in the descending colon, one polyp in the sigmoid colon. The cecal polyp was quite large and suspicious for neoplasm. On December 05, 2015, the patient had right colon partial resection with no evidence of residual carcinoma. The retroperitoneal lymph node biopsy came back positive for classic Hodgkin lymphoma. The pathology from the polypectomy from the colonoscopy done on December 04, 2015: The ascending polyps came back tubular adenoma; sigmoid colon polyp was tubular adenoma; the descending colon polyp was tubular adenoma; while the cecal polyp came back positive for invasive, well-differentiated colonic adenocarcinoma. The adenocarcinoma invades into the muscularis propria. So, this will be stage T2. The patient had a 2D echocardiogram which showed normal left ventricular ejection fraction at 56%. The patient started chemotherapy with AVD with Adriamycin, vinblastine, and dacarbazine on January 05, 2016. The patient completed three cycles of AVD on March 15, 2016 and treatment was stopped because of deterioration of the left ventricular ejection fraction from 60% to 40%. The patient started treatment with brentuximab on April 20, 2016. The patient received only one cycle of brentuximab, which was stopped because of severe diarrhea with bloody stool. He stated treatment with Opdivo on May 14, 2016. The patient received four courses of Opdivo completed on June 25, 2016 and that was stopped because of severe diarrhea. The patient started treatment with bendamustine and gemcitabine on August 10, 2016. Patient received six cycles of bendamustine and gemcitabine. HISTORY OF PRESENT ILLNESS Patient is here today for followup of his Hodgkin's lymphoma. He is doing fine currently. 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 He denies any B symptoms. PAST MEDICAL HISTORY 1. History of prostate cancer. 2. Antiphospholipid antibody syndrome. 3. Hyperlipidemia. 4. Hypertension. 5. History of pneumonia. 6. History of pulmonary embolism, March 2013. 7. History of GERD. 8. History of thyroid nodule. 9. History of actinic keratosis. PAST SURGICAL HISTORY 1. Cataract extraction bilaterally, December 2006. 2. Vascular surgery, September 2007. 3. Appendectomy at age [age]. 4. Cholecystectomy done laparoscopically in September 2004. 5. Bilateral inguinal hernia repairs, February 2010. 6. Prostatectomy for adenocarcinoma of the prostate, July 1996. 7. Tonsillectomy as a child. FAMILY HISTORY Negative for cancer or blood diseases. SOCIAL HISTORY The patient is with three daughters. 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 He quit smoking a long time ago. He denies any abuse of alcohol or illicit drugs. He drinks about one beer daily. CURRENT MEDICATIONS 1. Omeprazole 40 mg daily. 2. Lisinopril one tablet 5 mg daily. 3. Fish oil 1000 mg. 4. Multivitamins once daily. 5. Carvedilol 3.125 mg twice daily. 6. Probiotic one tablet daily. 7. Warfarin according to the order. 8. Calcium citrate one capsule daily. 9. Vitamin B12 at 1000 mcg one capsule daily. 10. Vitamin D3 at 1000 IU daily. ALLERGIES LEVAQUIN, CLINDAMYCIN. REVIEW OF SYSTEMS CONSTITUTIONAL: No appetite or weight change. No fever, chills or sweating. No recent infection. HEENT: Ears: No tinnitus or hearing problem. Nose: No nasal discharge or epistaxis. Throat: No sore throat or mouth ulcers. Eyes: No diplopia or visual changes. RESPIRATORY: The patient has shortness of breath. No cough, expectoration or hemoptysis. CARDIOVASCULAR: No chest pain, orthopnea, or paroxysmal nocturnal dyspnea (PND). No edema. No palpitations. GASTROINTESTINAL: No nausea or vomiting. No diarrhea or constipation. No change in bowel movements. No heartburn or swallowing difficulties. No abdominal pain. No jaundice. No hematemesis, melena or rectal bleeding. GENITOURINARY: No hematuria or dysuria. MUSCULOSKELETAL: No pain in the muscles, joints or bones. NEUROLOGICAL: He has tingling and numbness in the hands and feet. HEMATOLOGIC/LYMPHATIC: No bleeding or easy bruising. He is weak, tired and fatigued. No enlarged lymph nodes. SKIN: No skin rash or lumps. PSYCHIATRIC: No anxiety or depression. PHYSICAL EXAMINATION GENERAL: Looks stable. Well-developed, well-nourished, and in no acute distress. VITAL SIGNS: Blood pressure 112/72, pulse 99 per minute, respirations 16 per minute, temperature 96.5, pulse ox 93% on room air. HEENT: Head: Atraumatic. No sinus tenderness to palpation. Eyes: No icterus or conjunctivitis. Mouth and throat: No oral thrush or mucositis. NECK: Supple. No cervical or supraclavicular lymphadenopathy. LUNGS: Clear to auscultation and percussion bilaterally. HEART: Regular rate and rhythm. No gallops, murmurs, clicks or rubs. ABDOMEN: Soft and lax. No tenderness. No hepatosplenomegaly. No masses. EXTREMITIES: No cyanosis, clubbing or edema. LYMPHATICS: No peripheral lymphadenopathy. NEUROLOGICAL: Conscious, alert and oriented times three. No focal motor or sensory deficits. PSYCHIATRIC: Mood and affect appear normal. SKIN: No skin rash, bruise or purpuric eruption. DIAGNOSTIC DATA CBC showed a white count of 4.9, hemoglobin 11.6, hematocrit 36.9, platelets 165,000. Chem panel is totally normal except chloride 108, carbon dioxide 20, BUN 22. Other parameters are normal. CT chest, abdomen and pelvis done on February 22, 2018 showed a stable 1.3 cm gastrohepatic lymph node without any new abnormality. ASSESSMENT 1. Classic Hodgkin's lymphoma involving the retroperitoneum. Bone marrow was negative for metastasis and PET scan revealed lymphadenopathy above and below the diaphragm. Patient received chemotherapy with AVD regimen with Adriamycin, vinblastine and dacarbazine and treatment stopped because of deterioration of the left ventricular ejection fraction to 40%. Patient showed response to that treatment. He received one cycle of brentuximab on April 20, 2016, and the patient developed severe diarrhea with the treatment so it was stopped. He started treatment with Opdivo on May 14, 2016, and he received four courses, completed June 25, 2016, and treatment stopped because of the development of severe diarrhea and deterioration of the general condition, requiring hospitalization. After that, patient started treatment with bendamustine and gemcitabine on August 09, 2016, and he received six cycles, completed February 2017. CT chest, abdomen and pelvis done October 25, 2016 did not show any significant lymph nodes. There was a gastrohepatic lymph node stable at 1.[address] chest, abdomen and pelvis done November 14, 2017 and on February 22, 2018 showed a stable 1.3 cm gastrohepatic lymph node without any deterioration. I am planning to continue follow up. I will see the patient in three months from now with CBC, chem panel, LDH, uric acid and erythrocyte sedimentation rate. 2. Chemotherapy-induced anemia. Current hemoglobin 11.6 g/dl, which is stable. I am planning to continue to monitor. 3. History of prostate cancer. 4. Early colon cancer after polypectomy of cecal polyp done December 04, 2015, which came back positive for invasive well-differentiated adenocarcinoma of the colon with invasion of the muscularis propria. Partial resection of the right colon was done on December 05, 2015, and it was negative for residual carcinoma. Tumor was staged as stage T2 N0 M0 (stage I). CEA was 2.2, within the normal range. I am planning to repeat his CEA with his next visit. PLAN 1. Continue followup. 2. Patient to return in three months with CBC, chem panel, LDH, uric acid, ESR and CEA. 3. Patient is to contact us for any new concerns or complaints. MAINOR
[2018-03-20] MEDS ORDERED: TAMS0.4C25 PO (11:22)
[2018-03-20] MEDS ORDERED: IBAN150T16 PO (11:22)
[2018-03-21] MEDS ORDERED: POTA-23 PO (08:35)
[2018-03-21] MEDS ORDERED: LISI5TAB25 PO (08:47)
[2018-04-19] MEDS ORDERED: IPRA3AMP10 IH ×2 (14:31→14:49)
[2018-04-19] MEDS ORDERED: BENZ200C15 PO (14:49)
[2018-05-03] MEDS ORDERED: CALC-733 PO (11:10)
[2018-05-04] MEDS ORDERED: FERR-53 PO (14:35)
[2018-05-05] MEDS ORDERED: CYA1000 PO (11:55)
== END 2018-05-14 ==
LOC: ONC 14:00
PROVIDERS: ATTEND Internal Medicine Hematology
DX: Z85.038 Personal history of other malignant neoplasm of large intestine (principal); R91.8 Other nonspecific abnormal finding of lung field; J90 Pleural effusion, not elsewhere classified; I31.3 Pericardial effusion (noninflammatory); I71.2 Thoracic aortic aneurysm, without rupture; N28.1 Cyst of kidney, acquired; N20.0 Calculus of kidney; D64.81 Anemia due to antineoplastic chemotherapy; Z85.46 Personal history of malignant neoplasm of prostate; I10 Essential (primary) hypertension; E78.00 Pure hypercholesterolemia, unspecified; I48.91 Unspecified atrial fibrillation
CPT/HCPCS: 36415; 36591; 71260; 74177; 83615; 84550; 85025; 85610; G0463; J1642; Q9967; 82040; 82247; 82310; 82374; 82435; 82565; 82947; 84075; 84132; 84155; 84295; 84450; 84460; 84520; 99212

== ENCOUNTER → 2018-03-14 | Outpatient (CLI) | payer MEDICARE, OTHER ==
[2018-01-20 10:28] VITALS: BMI 25.9
[~2018-03-14] MED LIST changes: -ALTEPLASE RECOMB 2 MG VIAL IVP PRN; -DEXTROSE 5%(*) 100 ML BAG 100 ML IVPB PRN; -HEPARIN FLSH (PORT) 500 UN/5ML IVP PRN; -IBAN150T16 PO; +IBAN150T6 PO; -IOPAMIDOL 76% 50 ML INFUS BTL 100 ML ONE; -LIDOCAINE/SOD BICARB 8.4% SYR ID PRN; -NS(*) 0.9% 100 ML BAG 100 ML IVPB PRN; -NS(*) 0.9% 500 ML BAG 500 ML IV PRN; -WATER FOR INJ,STERILE 20 ML IVP PRN
[2018-03-14 08:22] LABS: INR 3.42
== END ==
LOC: ZZSPRING 01:35
PROVIDERS: ATTEND Pharmacist Pharmacotherapy
DX: I48.91 Unspecified atrial fibrillation (principal)
CPT/HCPCS: 36415; 85610

== ENCOUNTER → 2018-04-25 | Outpatient (REF) | payer MEDICARE, OTHER ==
[2018-01-20 10:28] VITALS: BMI 25.9
[~2018-04-25] MED LIST changes: +BENZ200C15 PO; +IPRA3AMP10 IH
== END ==
LOC: ZZSPRING 08:28
PROVIDERS: ATTEND Internal Medicine Cardiovascular Disease
DX: I50.22 Chronic systolic (congestive) heart failure (principal)
CPT/HCPCS: 82310; 82374; 82435; 82565; 82947; 84132; 84295; 84520

== ENCOUNTER → 2018-04-25 | Outpatient (CLI) | payer MEDICARE, OTHER ==
[2018-01-20 10:28] VITALS: BMI 25.9
[2018-04-25 08:42] LABS: INR 2.11
== END ==
LOC: ZZSPRING 01:16
PROVIDERS: ATTEND Pharmacist Pharmacotherapy
DX: I48.92 Unspecified atrial flutter (principal); D68.59 Other primary thrombophilia
CPT/HCPCS: 36415; 85610

== ENCOUNTER → 2018-05-02 | Outpatient (CLI) | payer MEDICARE, OTHER ==
[2018-01-20 10:28] VITALS: BMI 25.9
[2018-05-02 14:45] LABS: PLATELET COUNT, AUTOMATED 203 K/uL (150-450)
== END ==
LOC: LAB 14:24
PROVIDERS: ATTEND Internal Medicine
DX: I48.91 Unspecified atrial fibrillation (principal); Z85.71 Personal history of Hodgkin lymphoma; I50.9 Heart failure, unspecified; I50.20 Unspecified systolic (congestive) heart failure; Z85.038 Personal history of other malignant neoplasm of large intestine; D64.9 Anemia, unspecified
CPT/HCPCS: 36415; 80162; 82040; 82247; 82310; 82374; 82435; 82565; 82607; 82728; 82746; 82947; 83540; 83550; 83880; 84075; 84132; 84155; 84295; 84443; 84450; 84460; 84520; 85025

== ENCOUNTER → 2018-05-23 | Outpatient (CLI) | payer MEDICARE, OTHER ==
[2018-01-20 10:28] VITALS: BMI 25.9
[~2018-05-23] MED LIST changes: +FERR-53 PO; +IBAN150T16 PO; -IBAN150T6 PO
[2018-05-23 08:24] LABS: INR 2.04
== END ==
LOC: ZZSPRING 01:24
PROVIDERS: ATTEND Pharmacist Pharmacotherapy
DX: Z51.81 Encounter for therapeutic drug level monitoring (principal); I48.91 Unspecified atrial fibrillation
CPT/HCPCS: 36415; 85610

== ENCOUNTER → 2018-05-30 | Outpatient (CLI) | payer MEDICARE, OTHER ==
[2018-01-20 10:28] VITALS: BMI 25.9
[2018-05-30 08:39] LABS: PLATELET COUNT, AUTOMATED 130 K/uL (150-450)
== END ==
LOC: ZZSPRING 01:29
PROVIDERS: ATTEND Internal Medicine Hematology
DX: C81.90 Hodgkin lymphoma, unspecified, unspecified site (principal)
CPT/HCPCS: 36415; 82040; 82247; 82310; 82374; 82435; 82565; 82947; 83615; 84075; 84132; 84155; 84295; 84450; 84460; 84520; 84550; 85025

== ENCOUNTER → 2018-06-20 | Outpatient (CLI) | payer MEDICARE, OTHER ==
[2018-01-20 10:28] VITALS: BMI 25.9
[~2018-06-20] MED LIST changes: -DIPH0.5D12 IM; +DIPH0.5S2 IM
[2018-06-20 08:30] LABS: INR 1.44
== END ==
LOC: ZZSPRING 02:11
PROVIDERS: ATTEND Pharmacist Pharmacotherapy
DX: I48.91 Unspecified atrial fibrillation (principal)
CPT/HCPCS: 36415; 85610

== ENCOUNTER → 2018-06-21 | Outpatient (CLI) | payer MEDICARE, OTHER ==
[2018-01-20 10:28] VITALS: BMI 25.9
--- NOTE | 2018-06-21 16:16 | EKG ---
FACILITY: [facility] [place] PATIENT NAME: SANDRA EVANGELISTA : [id number] MR: [id number] V: [id number] EXAM DATE: ORDERING PHYSICIAN: DARVIN COX TECHNOLOGIST: NURA Test Reason : PRE-OP Blood Pressure : / mmHG Vent. Rate : 085 BPM Atrial Rate : 081 BPM P-R Int : 000 ms QRS Dur : 140 ms QT Int : 392 ms P-R-T Axes : 000 -50 131 degrees QTc Int : 466 ms Atrial fibrillation Left axis deviation Left bundle branch block Abnormal ECG When compared with ECG of 19-JAN-2018 19:52, No significant change was found Referred By: NEREIDA Confirmed By:
== END ==
LOC: RESP 10:51
PROVIDERS: ATTEND Internal Medicine
DX: Z02.9 Encounter for administrative examinations, unspecified (principal)

== ENCOUNTER 2018-06-22 00:50 | Day surgery (SDC) | payer MEDICARE, OTHER ==
[2018-01-20 10:28] VITALS: Ht 180.3 cm; Wt 77.6 kg
[~2018-06-22] VITALS: Ht 180.3 cm; Wt 77.6 kg
[2018-06-22] VITALS (8 sets, daily range): BP systolic 93–107; BP diastolic 62–77
[2018-06-22] MEDS ORDERED: fentaNYL CITR 100 MCG/2 ML AMP ONE (08:09)
[2018-06-22] MEDS ORDERED: DEXAMETHASONE SOD 4 MG/ML VIAL ONE (08:09)
[2018-06-22] MEDS ORDERED: ONDANSETRON 4 MG/2 ML VIAL ONE (08:09)
[2018-06-22] MEDS ORDERED: PROPOFOL EMUL(*) 10MG/ML 20 ML 20 ML ONE ×2 (08:09→09:04)
[2018-06-22] MEDS ORDERED: LIDOCAINE MPF 1% 5 ML VIAL ONE (08:09)
[2018-06-22] MEDS ORDERED: KETAMINE HCL 200 MG/20 ML MDV ONE (08:17)
[2018-06-22] MEDS ORDERED: LIDOCAINE/SOD BICARB 8.4% SYR ID ONE (08:45)
[2018-06-22] MEDS ORDERED: MIDAZOLAM 2 MG/2 ML VIAL IVP PRN (08:45)
[2018-06-22] MEDS ORDERED: NORMOSOL R SOLN(*) 1000 ML BAG 1,000 ML IV PRN (08:45)
[2018-06-22 08:59] LABS: INR 1.13
[2018-06-22] MEDS ORDERED: ROPIVACAINE 0.5% 20 ML VIAL ONE (09:10)
[2018-06-22] MEDS ORDERED: MINERAL OIL LIGHT 10 ML VIAL ONE (09:10)
[2018-06-22] MEDS ORDERED: NEOMYCIN/POLYMYX/BACITR 30 GM TP ONE (09:11)
[2018-06-22] MEDS ORDERED: EPINEPHrine HCL 30 MG/30 ML ONE (09:11)
[2018-06-22] MEDS ORDERED: TRAM-420 PO (10:10)
--- NOTE | 2018-06-22 10:14 | Short(Outpt) Discharge Summary ---
Discharge Summary Reason for Hosp/Final Diag: (1) Skin lesion of chest wall Status: Chronic Hospital Course & Plan: Skin lesion of chest wall excised without problems. Departure Discharge to: Home, Self Care Discharge Instructions Home Meds Active Scripts Tramadol Hcl (TRAMADOL HCL) 50 Mg Tablet, 0.5 TAB PO Q4-6H PRN for PAIN, #10 TAB 0 Refills Prov:ZABRINA PADRON MD 06/22/18 Carvedilol (COREG) 25 Mg Tablet, 1 TAB PO BID for 30 Days, #60 TAB 6 Refills Prov:DARVIN COX MD 06/09/18 Furosemide (FUROSEMIDE) 40 Mg Tablet, 1 TAB PO DAILY, #90 TAB 3 Refills 1 tab po qAM Prov:DARVIN COX MD 06/02/18 Omeprazole (OMEPRAZOLE) 20 Mg Capsule.dr, 1 CAP PO QDAY, #90 CAP 3 Refills Prov:DARVIN COX MD 06/02/18 Cyanocobalamin (Vitamin B-12) (VITAMIN B-12) 1,000 Mcg Tablet, 1000 MCG PO QDAY, #90 TAB 3 Refills Prov:DARVIN COX MD 05/05/18 Ferrous Sulfate (FERROUS SULFATE) 325 Mg Tablet, 325 MG PO QDAY, #90 TAB 3 Refills Prov:DARVIN COX MD 05/04/18 Calcium Carbonate/Vitamin D3 (CALCIUM 500 + VIT D 400 TABLET) 1 Each Tablet, 1 TAB PO QDAY, #90 TAB 3 Refills Prov:DARVIN COX MD 05/03/18 Ibandronate Sodium (BONIVA) 150 Mg Tablet, 1 TAB PO Q30D, #4 TAB 6 Refills Prov:YORDY AVERY MD 03/20/18 Tamsulosin Hcl (FLOMAX) 0.4 Mg Cap.er.24h, 1 CAP PO QDAY, #90 CAPSULE 1 Refill Prov:YORDY AVERY MD 03/20/18 Cholecalciferol (Vitamin D3) (VITAMIN D3) 2,000 Unit Capsule, 1 CAP PO QDAY, #90 CAPSULE 3 Refills Prov:YORDY AVERY MD 02/01/18 Folic Acid/Multivits-Min/Lut (MULTI-VITAMIN GUMMIES) 1 Each Tab.chew, 1 EACH PO QDAY, #90 TAB.CHEW 3 Refills Prov:YORDY AVERY MD 02/01/18 Fish Oil/Dha/Epa (FISH OIL 1,200 MG FISH OIL) 1 Each Capsule, 1 CAP PO QDAY, #90 CAP 3 Refills Prov:YORDY AVERY MD 02/01/18 Lactobacillus Combo No.10 (PROBIOTIC) 1 Each Capsule, 1 EACH PO QDAY, #90 CAP 1 Refill Prov:YORDY AVERY MD 06/08/17 Reported Medications Digoxin (DIGOXIN) 250 Mcg Tablet, 125 MCG PO DAILY 06/19/18 Lisinopril (LISINOPRIL) 5 Mg Tablet, 1 TAB PO QDAY, TAB 03/21/18 Mag Hydrox/Aluminum Hyd/Simeth (Maalox Advanced Suspension) 200 Mg-200 Mg-20 Mg/5 Ml Oral.susp, 15 ML PO Q4H PRN for INDIGESTION 01/05/18 Ondansetron (ZOFRAN ODT) 4 Mg Tab.rapdis, 8 MG PO Q8H PRN for NAUSEA, TAB.CRYSTAL 01/05/18 Magnesium Hydroxide (MILK OF MAGNESIA) 400 Mg/5 Ml Oral.susp, 15-30 ML PO PRN, BOTTLE 01/05/18 Loperamide HCl (Imodium A-D) 2 Mg Capsule, 2 TAB PO PRN 01/05/18 Warfarin Sodium (WARFARIN SODIUM) 5 Mg Tablet, 7.5 MG PO MON, FRI, TAB 01/05/18 Warfarin Sodium (WARFARIN SODIUM) 5 Mg Tablet, 5 MG PO BERNARDO, TUE, TUE, TH, SA, TAB 01/05/18 Calcium Carbonate/Mag Hydrox (ANTACID CHEWABLE TABLET) 1 Each Tab.chew, 2 TAB PO Q2H PRN for indigestion, TAB.CHEW 10/13/17 Acetaminophen (ACETAMINOPHEN) 325 Mg Tablet, 1-2 TAB PO Q4H PRN for PAIN, TAB 07/20/17 Vit A,C & E/Lutein/Minerals (OCUVITE TABLET) 1 Each Tablet, 1 TAB PO QDAY 12/23/16 Discontinued Reported Medications Guaifenesin/Dextromethorphan (Robitussin Cough-Chest Dm Liq) 100 Mg-5 Mg/5 Ml Liquid, 5 ML PO Q4-6H PRN for COUGH 01/05/18 Digoxin (DIGOXIN) 125 Mcg Tablet, 1 TAB PO QDAY 01/20/18 Discontinued Scripts Ipratropium/Albuterol Sulfate (IPRAT-ALBUT 0.5-3(2.5) MG/3 ML) 3 Ml Ampul.neb, 3 ML IH QID PRN for shortness of breath, #20 EACH 0 Refills Prov:YORDY AVERY MD 04/19/18 Potassium Chloride (KLOR-CON 10) 10 Meq Tablet.er, 1 TAB PO TIDCF, #90 TAB 6 Refills Prov:YORDY AVERY MD 03/21/18 Follow up Referrals: General Surgery - 07/07/18 @ Surgery, General with ZABRINA PADRON MD You have a follow up appointment scheduled with Dr. Padron on 07/07/18, at 9:00am. Diet: Regular Activity: As Tolerated Special Instructions: You may remove the white surgical dressing on 06/24/18, then you can shower. After you shower, you may leave the incision open to air but don't immerse the incision for 2 weeks. ZABRINA PADRON MD Jun 22, 2018 10:14
--- NOTE | 2018-06-22 10:20 | Post Operative Progress Note ---
Post Operative Progress Note Date: Jun 22, 2018 Time: 10:14 Surgeon: Zay [phone] Anesthesia: TIVA by Dr. Georges Pre-Op Diagnosis: Suspicious skin lesion on chest Post-Op Diagnosis: RICHARD Findings: C/W dx Procedure(s): Excision of suspicious skin lesion from chest Specimen Removed:(May be N/A): Skin lesion, chest Complications: None Fluids: See anesthesia record Estimated Blood Loss: Minimal Date OP Note Dictated: Jun 22, 2018 Time OP Note Dictated: 10:16 ZABRINA PADRON MD Jun 22, 2018 10:20
--- NOTE | 2018-06-22 10:46 | OPERATIVE REPORT 1 ---
EVENT DATE: June 22, 2018 SURGEON: Javid Collazo MD ANESTHESIOLOGIST: Vitaly Georges MD ANESTHESIA: TIVA and local. PREOPERATIVE DIAGNOSIS Suspicious skin lesion on chest. POSTOPERATIVE DIAGNOSIS Suspicious skin lesion on chest. PROCEDURE PERFORMED Excision of suspicious skin lesion on the chest. COMPLICATIONS None. CONDITIONS Stable. ESTIMATED BLOOD LOSS. Minimal. INDICATIONS This is an 88-year-old gentleman with a history of prostate cancer, lymphoma and colon cancer who was referred to me by the dye range operator with a large, approximately 3.5 cm diameter, raised suspicious skin lesion on the center of his chest overlying the sternum. It was a little bit big to remove in the office and there was a chance I needed a skin graft, so I consented him to remove this in the operating room where I had more options for closure. DESCRIPTION OF PROCEDURE The patient was brought to the operating room and placed supine on the operating table. TIVA anesthesia was administered and his chest was prepped and draped in sterile fashion. A timeout was completed and I anesthetized the skin all around the lesion with 0.5% Ropivacaine plain and once it was anesthetized I made a transverse 6 cm long by 5 cm wide incision to encompass the lesion with grossly negative margins on all sides. I dissected through the dermis and subcutaneous fat, undermined the ellipse and passed the specimen off the field. I made the wound hemostatic with pressure and electrocautery and then closed the wound with a running 3-0 Nylon suture and then put a few interrupted 3-0 Nylons in the center of it where the tension was the greatest. It did close without much tension. I then cleaned and dried the skin and placed Bacitracin antibiotic ointment over the incision and then covered this with a sterile, surgical dressing. He was then transported to the recovery room in stable condition having tolerated the procedure without any apparent problems. MAINOR
== END 2018-06-22 11:00 | disposition home or self-care (01) ==
LOC: OR 00:50
PROVIDERS: ATTEND Surgery
DX: C44.529 Squamous cell carcinoma of skin of other part of trunk (principal); I48.91 Unspecified atrial fibrillation; I11.0 Hypertensive heart disease with heart failure; I50.9 Heart failure, unspecified; E78.5 Hyperlipidemia, unspecified; Z86.711 Personal history of pulmonary embolism
CPT/HCPCS: 11603; 36415; 80162; 85610; 88305; A9270; J2001; J2405; J2704; J2795; J3010; J3490; J0171; J1100

== ENCOUNTER → 2018-06-29 | Outpatient (CLI) | payer MEDICARE, OTHER ==
[2018-01-20 10:28] VITALS: BMI 25.9
[2018-06-29 11:38] LABS: INR 1.89
== END ==
LOC: LAB 10:26
PROVIDERS: ATTEND Pharmacist Pharmacotherapy
DX: I48.91 Unspecified atrial fibrillation (principal); D68.59 Other primary thrombophilia; Z86.711 Personal history of pulmonary embolism
CPT/HCPCS: 36415; 85610

== ENCOUNTER → 2018-07-11 | Outpatient (CLI) | payer MEDICARE, OTHER ==
[2018-01-20 10:28] VITALS: BMI 25.9
[2018-07-11 08:26] LABS: INR 2.54
== END ==
LOC: ZZSPRING 00:58
PROVIDERS: ATTEND Pharmacist Pharmacotherapy
DX: D68.59 Other primary thrombophilia (principal)
CPT/HCPCS: 85610

== ENCOUNTER → 2018-07-11 | Outpatient (CLI) | payer MEDICARE, OTHER ==
[2018-01-20 10:28] VITALS: BMI 25.9
== END ==
LOC: ZZSPRING 00:58
PROVIDERS: ATTEND Internal Medicine Cardiovascular Disease
DX: I50.22 Chronic systolic (congestive) heart failure (principal)
CPT/HCPCS: 36415; 80162; 82310; 82374; 82435; 82565; 82947; 84132; 84295; 84520

== ENCOUNTER → 2018-07-18 | Outpatient (CLI) | payer MEDICARE, OTHER ==
[2018-01-20 10:28] VITALS: BMI 25.9
[2018-07-18 08:39] LABS: INR 2.75
== END ==
LOC: ZZSPRING 01:32
PROVIDERS: ATTEND Pharmacist Pharmacotherapy
DX: I82.401 Acute embolism and thrombosis of unspecified deep veins of right lower extremity (principal); D68.59 Other primary thrombophilia; I48.91 Unspecified atrial fibrillation
CPT/HCPCS: 36415; 85610

== ENCOUNTER → 2018-07-25 | Outpatient (CLI) | payer MEDICARE, OTHER ==
[2018-01-20 10:28] VITALS: BMI 25.9
[~2018-07-25] MED LIST changes: -OMEP-125 PO; +OMEP-126 PO
== END ==
LOC: ZZSPRING 16:17
PROVIDERS: ATTEND Internal Medicine Cardiovascular Disease
DX: I50.22 Chronic systolic (congestive) heart failure (principal)
CPT/HCPCS: 36415; 80162; 82310; 82374; 82435; 82565; 82947; 84132; 84295; 84520

== ENCOUNTER → 2018-08-01 | Outpatient (CLI) | payer MEDICARE, OTHER ==
[2018-01-20 10:28] VITALS: BMI 25.9
[~2018-08-01] MED LIST changes: +OMEP-125 PO; -OMEP-126 PO
[2018-08-01 08:41] LABS: INR 2.79
== END ==
LOC: ZZSPRING 01:12
PROVIDERS: ATTEND Pharmacist Pharmacotherapy
DX: I82.401 Acute embolism and thrombosis of unspecified deep veins of right lower extremity (principal)
CPT/HCPCS: 36415; 85610

== ENCOUNTER 2018-08-23 09:00 | Outpatient (RCR) | payer MEDICARE, OTHER ==
[2018-01-20 10:28] VITALS: Wt 80.1 kg
[2018-06-01 11:27] VITALS: BP 102/77
--- NOTE | 2018-06-02 02:56 | EL-TARABILY ONCOLOGY NOTE ---
EVENT DATE: June 01, 2018 DIAGNOSES 1. Classic Hodgkin lymphoma involving the retroperitoneum. 2. Early-stage colon cancer after polypectomy of cecal polyp. 3. Atrial fibrillation. 4. History of prostate cancer. 5. History of antiphospholipid antibody syndrome with history of pulmonary embolism in the past. 6. Hypertension. 7. Hypercholesterolemia. CHIEF COMPLAINT Patient is here today for followup of his Hodgkin lymphoma. ONCOLOGY HISTORY The patient is an 88-year-old male who presented with low back pain and ankle weakness, so the patient had MRI of the lumbar spine without contrast, which was done on November 12, 2015. This MRI actually showed extensive retroperitoneal adenopathy suspicious for malignancy. There was 1.1 cm focal marrow lesion in lumbar 4, which was indeterminate. There was lumbar spondylosis resulting in foraminal stenosis, which appeared worse at lumbar 4-5 and lumbar 5-S1 on the right. The patient had a CT of chest, abdomen and pelvis with/without contrast done on November 17, 2015, which showed enlarged multinodular thyroid gland, post surgical changes from cystectomy and prostatectomy. There was massive retroperitoneal adenopathy, right common iliac lymph node measuring 3.8 cm, right iliac lymph node measured 2.6 cm. There was 9 mm hyperattenuated lesion in the dome of the spleen; could represent hemangioma or lymphangioma. There were numerous bilateral renal cysts. In the mediastinum there was 5.1 cm low dense space-occupying process in the right paratracheal region extending into the precarinal region and an additional 1.3 cm hypodensity in the subcarinal region. A bone scan was done on November 17, 2015, revealing a focal area of isotope in the left tenth costovertebral junction. Repeat CT of abdomen and pelvis with intravenous contrast done on December 05, 2015, did reveal right colonic clips, massive retroperitoneal adenopathy. The renal cyst seems to be simple in nature. The patient had a colonoscopy done on December 04, 2015, because of his history of colon polyps with retroperitoneal lymphadenopathy. There are polyps seen in the cecum, one polyp, two polyps in the ascending colon, one polyp in the descending colon, one polyp in the sigmoid colon. The cecal polyp was quite large and suspicious for neoplasm. On December 05, 2015, the patient had right colon partial resection with no evidence of residual carcinoma. The retroperitoneal lymph node biopsy came back positive for classic Hodgkin lymphoma. The pathology from the polypectomy from the colonoscopy done on December 04, 2015: The ascending polyps came back tubular adenoma; sigmoid colon polyp was tubular adenoma; the descending colon polyp was tubular adenoma; while the cecal polyp came back positive for invasive, well-differentiated colonic adenocarcinoma. The adenocarcinoma invades into the muscularis propria. So, this will be stage T2. The patient had a 2D echocardiogram which showed normal left ventricular ejection fraction at 56%. The patient started chemotherapy with AVD with Adriamycin, vinblastine, and dacarbazine on January 05, 2016. The patient completed three cycles of AVD on March 15, 2016, and treatment was stopped because of deterioration of the left ventricular ejection fraction from 60% to 40%. The patient started treatment with brentuximab on April 20, 2016. The patient received only one cycle of brentuximab, which was stopped because of severe diarrhea with bloody stool. He stated treatment with Opdivo on May 14, 2016. The patient received four courses of Opdivo completed on June 25, 2016, and that was stopped because of severe diarrhea. The patient started treatment with bendamustine and gemcitabine on August 10, 2016. Patient received six cycles of bendamustine and gemcitabine. HISTORY OF PRESENT ILLNESS Patient is here today for followup of his Hodgkin lymphoma. He is doing fine currently, except he has some neuropathy in his hands. He also has some fatigue. As per patient, he had a skin nodule resected by Dr. Shelley recently, and for the last three weeks he had a small mass at the site of the surgery, which is painful. PAST MEDICAL HISTORY 1. History of prostate cancer. 2. Antiphospholipid antibody syndrome. 3. Hyperlipidemia. 4. Hypertension. 5. History of pneumonia. 6. History of pulmonary embolism, March 2013. 7. History of GERD. 8. History of thyroid nodule. 9. History of actinic keratosis. PAST SURGICAL HISTORY 1. Cataract extraction bilaterally, December 2006. 2. Vascular surgery, September 2007. 3. Appendectomy at age [age]. 4. Cholecystectomy done laparoscopically in September 2004. 5. Bilateral inguinal hernia repairs, February 2010. 6. Prostatectomy for adenocarcinoma of the prostate, July 1996. 7. Tonsillectomy as a child. FAMILY HISTORY Negative for cancer or blood diseases. SOCIAL HISTORY The patient is with three daughters. 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 He quit smoking a long time ago. He denies any abuse of alcohol or illicit drugs. He drinks about one beer daily. CURRENT MEDICATIONS 1. Omeprazole 40 mg daily. 2. Lisinopril one tablet 5 mg daily. 3. Fish oil 1000 mg. 4. Multivitamins once daily. 5. Carvedilol 3.125 mg twice daily. 6. Probiotic one tablet daily. 7. Warfarin according to the order. 8. Calcium citrate one capsule daily. 9. Vitamin B12 at 1000 mcg one capsule daily. 10. Vitamin D3 at 1000 IU daily. ALLERGIES LEVAQUIN, CLINDAMYCIN. REVIEW OF SYSTEMS CONSTITUTIONAL: No appetite or weight change. No fever, chills or sweating. No recent infection. HEENT: Ears: No tinnitus or hearing problem. Nose: No nasal discharge or epistaxis. Throat: No sore throat or mouth ulcers. Eyes: No diplopia or visual changes. RESPIRATORY: No shortness of breath. No cough, expectoration or hemoptysis. CARDIOVASCULAR: No chest pain, orthopnea, or paroxysmal nocturnal dyspnea (PND). No edema. No palpitations. GASTROINTESTINAL: No nausea or vomiting. No diarrhea or constipation. No change in bowel movements. No heartburn or swallowing difficulties. No abdominal pain. No jaundice. No hematemesis, melena or rectal bleeding. GENITOURINARY: No hematuria or dysuria. MUSCULOSKELETAL: No pain in the muscles, joints or bones. NEUROLOGICAL: He has tingling and numbness in the hands. HEMATOLOGIC/LYMPHATIC: He is weak, tired, and fatigued. SKIN: He has a mass below the root of the neck. PSYCHIATRIC: No anxiety or depression. PHYSICAL EXAMINATION GENERAL: Looks stable. Well-developed, well-nourished, and in no acute distress. VITAL SIGNS: Blood pressure 102/77, pulse 91 per minute, respirations 16 per minute, temperature 97, pulse oximetry 92% on room air. HEENT: Head: Atraumatic. No sinus tenderness to palpation. Eyes: No icterus or conjunctivitis. Mouth and throat: No oral thrush or mucositis. NECK: Supple. No cervical or supraclavicular lymphadenopathy. LUNGS: Clear to auscultation and percussion bilaterally. HEART: Regular rate and rhythm. No gallops, murmurs, clicks or rubs. ABDOMEN: Soft and lax. No tenderness. No hepatosplenomegaly. No masses. EXTREMITIES: No cyanosis, clubbing or edema. LYMPHATICS: No peripheral lymphadenopathy. NEUROLOGICAL: Conscious, alert and oriented times three. No focal motor or sensory deficits. PSYCHIATRIC: Mood and affect appear normal. SKIN: There is a mass at the area of the skin at the upper part of the sternum, in the midline, which is tender to touch. DIAGNOSTIC DATA CBC showed a white count of 5.5, hemoglobin 14.5, hematocrit 24.9, platelet 130,000. Chem panel totally normal except creatinine of 1.2, BUN 23; other parameters are normal. ASSESSMENT 1. Classic Hodgkin lymphoma involving the retroperitoneum. Bone marrow was negative for metastasis, and PET scan revealed lymphadenopathy above and below the diaphragm. Patient received chemotherapy with AVD regimen with Adriamycin, vinblastine and dacarbazine, and treatment stopped because of deterioration of the left ventricular ejection fraction to 40%. Patient showed response to that treatment. He received one cycle of brentuximab on April 20, 2016, and the patient developed severe diarrhea with the treatment, so it was stopped. He started treatment with Opdivo on May 14, 2016, and he received four courses, completed June 25, 2016, and treatment stopped because of the development of severe diarrhea and deterioration of his general condition, requiring hospitalization. After that, patient started treatment with bendamustine and gemcitabine on August 09, 2016, and he received six cycles, completed February 2017. CT chest, abdomen and pelvis done October 25, 2016. did not show any significant lymph nodes. There was a gastrohepatic lymph node stable at 1.[address] chest, abdomen and pelvis done November 14, 2017, and on February 22, 2018, showed a stable 1.3 cm gastrohepatic lymph node without any deterioration. Patient is doing fine currently, and I am planning to see him again in three months with CBC, chemistry panel, LDH, uric acid, and CT chest/abdomen/pelvis for further evaluation. 2. Chemotherapy-induced anemia. Current hemoglobin 14.5 g/dL, which is totally normal. I am planning to continue to follow. 3. History of prostate cancer. 4. Early colon cancer after polypectomy of cecal polyp done December 04, 2015, which came back positive for invasive well-differentiated adenocarcinoma of the colon with invasion of the muscularis propria. Partial resection of the right colon was done on December 05, 2015. It was negative for residual carcinoma. Tumor was staged as stage T2 N0 M0 (stage I). His last CEA was normal at 2.2. PLAN 1. Continue followup. 2. Patient to return in three months with CBC, chem panel, LDH, uric acid, ESR, and CT chest/abdomen/pelvis. 3. Patient to contact us for any new concerns or complaints. MAINOR
[~2018-08-23 09:00] MED LIST changes: -OMEP-125 PO; +OMEP-126 PO
[2018-08-23 09:29] LABS: PLATELET COUNT, AUTOMATED 123 K/uL (150-450)
[2018-08-23] MEDS ORDERED: NS(*) 0.9% 250 ML BAG 250 ML IVPB PRN (09:50)
[2018-08-23] MEDS ORDERED: WATER FOR INJ,STERILE 20 ML IVP PRN (09:50)
[2018-08-23] MEDS ORDERED: HEPARIN FLSH (PORT) 500 UN/5ML IVP PRN (09:50)
[2018-08-23] MEDS ORDERED: ALTEPLASE RECOMB 2 MG VIAL IVP PRN (09:50)
[2018-08-23] MEDS ORDERED: LIDOCAINE/SOD BICARB 8.4% SYR ID PRN (09:50)
[2018-08-23] MEDS ORDERED: DEXTROSE 5%(*) 100 ML BAG 100 ML IVPB PRN (09:50)
[2018-08-23] MEDS ORDERED: NS(*) 0.9% 100 ML BAG 100 ML IVPB PRN (09:50)
--- NOTE | 2018-08-23 11:01 | RADIOLOGY IMAGING REPORT ---
FACILITY: [facility] - [place] PATIENT NAME: Lyle Lange : 1930 MR: [id number] V: [id number] EXAM DATE: ORDERING PHYSICIAN: DEANN SIDDIQUI TECHNOLOGIST: Location[place] [facility] [place] Patient: Lyle Lange : 1930 Visit/Account:[id number] Date of Sevice: 08/23/2018 CT CHEST ABDOMEN PELVIS W/CON HISTORY: Restaging colon cancer, history of Hodgkin's lymphoma TECHNIQUE: CT chest, abdomen and pelvis with intravenous contrast. Contiguous helical images was per formed from the lung apices to the symphysis pubis. One of the following dose optimization techniques was utilized in the performance of this exam: Autom ated exposure control; adjustment of the mA and/or kV according to the patient's size; or use of an i terative reconstruction technique. Specific details can be referenced in the facility's radiology C T exam operational policy. CONTRAST: 75 cc of Isovue-370 COMPARISON: CT 02/22/2018 as well as multiple priors FINDINGS: CHEST: Heart/vessels: Heart is enlarged. Significant atherosclerotic calcification of the coronary vessels is noted. Main pulmonary artery is enlarged measures 3.8 cm There is a stable 4.6 cm aneurysm of the mid ascending thoracic aorta. Small pericardial effusion is noted and stable. Mediastinum: There is a small hiatal hernia. Multinodular thyroid gland is noted and heterogeneous but stable. Lymph nodes: Negative. Lungs/pleura: There are small bilateral pleural effusions greater on the right is stable from prior exam. No concerning pulmonary nodules or masses. Mild emphysema at the apices is noted. Bones/soft tissues: Patient is osteopenic with degenerative changes. ABDOMEN/PELVIS: Hepatobiliary: Gallbladder is absent. Spleen: Negative. Adrenals: Negative. Kidneys/: Numerous benign-appearing renal cortical cysts are noted. Prostate gland is absent. Patient has an artificial sphincter in place. Pancreas: Negative. GI: Postoperative changes are noted from right hemicolectomy. Diverticulum from the 2nd portion of the duodenum is noted. Small low-density lesion in the gastrohepatic ligament measures 12 mm either a small gastric divertic ulum or lymph node but stable from numerous prior studies. Vessels/spaces/nodes: Atherosclerotic calcification is noted. Bones/soft tissues: Numerous compression fractures and lumbar spine are stable. Compression fractur es from T12 through L5 are identified and stable. The most prominent compression fracture is L3 invo lving 80% of the vertebral body height centrally. IMPRESSION: 1. No evidence for recurrent or metastatic disease. 2. Stable 4.6 cm ascending thoracic aneurysm unchanged from numerous prior exams. 3. Postoperative changes are noted from right hemicolectomy. 4. Numerous other chronic findings described above. Report Dictated By: Christian Pollard MD at 08/23/2018 10:37 AM Report E-Signed By: Christian Pollard MD at 08/23/2018 10:54 AM WSN:[id number]
[2018-08-28] MEDS ORDERED: POTA-23 PO (10:33)
[2018-08-28] MEDS ORDERED: TAMS0.4C25 PO (11:41)
== END 2018-08-29 ==
LOC: SPU 09:00
PROVIDERS: ATTEND Internal Medicine Hematology
DX: Z85.038 Personal history of other malignant neoplasm of large intestine (principal); D64.81 Anemia due to antineoplastic chemotherapy; I48.91 Unspecified atrial fibrillation; Z85.46 Personal history of malignant neoplasm of prostate; I10 Essential (primary) hypertension; E78.00 Pure hypercholesterolemia, unspecified; Z92.21 Personal history of antineoplastic chemotherapy
CPT/HCPCS: 71260; 74177; 82378; 83615; 84550; 85025; 85651; G0463; J1642; 82040; 82247; 82310; 82374; 82435; 82565; 82947; 84075; 84132; 84155; 84295; 84450; 84460; 84520; 99212

== ENCOUNTER → 2018-08-29 | Outpatient (CLI) | payer MEDICARE, OTHER ==
[2018-01-20 10:28] VITALS: BMI 25.9
[2018-08-29 09:17] LABS: INR 2.06
== END ==
LOC: ZZSPRING 02:06
PROVIDERS: ATTEND Pharmacist Pharmacotherapy
DX: I82.401 Acute embolism and thrombosis of unspecified deep veins of right lower extremity (principal); D68.59 Other primary thrombophilia; I48.91 Unspecified atrial fibrillation; Z86.711 Personal history of pulmonary embolism
CPT/HCPCS: 36415; 85610

== ENCOUNTER 2018-08-31 08:21 | Outpatient (RCR) | payer MEDICARE, OTHER ==
[2018-01-20 10:28] VITALS: Wt 81.5 kg
[2018-08-31 08:31] VITALS: BP 106/75
--- NOTE | 2018-09-01 02:54 | [facility] ONCOLOGY NOTE ---
EVENT DATE: August 31, 2018 DIAGNOSES 1. Classic Hodgkin lymphoma involving the retroperitoneum. 2. Early-stage colon cancer after polypectomy of cecal polyp. 3. Atrial fibrillation. 4. History of prostate cancer. 5. History of antiphospholipid antibody syndrome with history of pulmonary embolism in the past. 6. Hypertension. 7. Hypercholesterolemia. CHIEF COMPLAINT Patient is here today for followup of his Hodgkin lymphoma. ONCOLOGY HISTORY The patient is an 88-year-old male who presented with low back pain and ankle weakness, so the patient had MRI of the lumbar spine without contrast, which was done on November 12, 2015. This MRI actually showed extensive retroperitoneal adenopathy suspicious for malignancy. There was 1.1 cm focal marrow lesion in lumbar 4, which was indeterminate. There was lumbar spondylosis resulting in foraminal stenosis, which appeared worse at lumbar 4-5 and lumbar 5-S1 on the right. The patient had a CT of chest, abdomen and pelvis with/without contrast done on November 17, 2015, which showed enlarged multinodular thyroid gland, post surgical changes from cystectomy and prostatectomy. There was massive retroperitoneal adenopathy, right common iliac lymph node measuring 3.8 cm, right iliac lymph node measured 2.6 cm. There was 9 mm hyperattenuated lesion in the dome of the spleen; could represent hemangioma or lymphangioma. There were numerous bilateral renal cysts. In the mediastinum there was 5.1 cm low dense space-occupying process in the right paratracheal region extending into the precarinal region and an additional 1.3 cm hypodensity in the subcarinal region. A bone scan was done on November 17, 2015, revealing a focal area of isotope in the left tenth costovertebral junction. Repeat CT of abdomen and pelvis with intravenous contrast done on December 05, 2015, did reveal right colonic clips, massive retroperitoneal adenopathy. The renal cyst seems to be simple in nature. The patient had a colonoscopy done on December 04, 2015, because of his history of colon polyps with retroperitoneal lymphadenopathy. There are polyps seen in the cecum, one polyp, two polyps in the ascending colon, one polyp in the descending colon, one polyp in the sigmoid colon. The cecal polyp was quite large and suspicious for neoplasm. On December 05, 2015, the patient had right colon partial resection with no evidence of residual carcinoma. The retroperitoneal lymph node biopsy came back positive for classic Hodgkin lymphoma. The pathology from the polypectomy from the colonoscopy done on December 04, 2015: The ascending polyps came back tubular adenoma; sigmoid colon polyp was tubular adenoma; the descending colon polyp was tubular adenoma; while the cecal polyp came back positive for invasive, well-differentiated colonic adenocarcinoma. The adenocarcinoma invades into the muscularis propria. So, this will be stage T2. The patient had a 2D echocardiogram which showed normal left ventricular ejection fraction at 56%. The patient started chemotherapy with AVD with Adriamycin, vinblastine, and dacarbazine on January 05, 2016. The patient completed three cycles of AVD on March 15, 2016, and treatment was stopped because of deterioration of the left ventricular ejection fraction from 60% to 40%. The patient started treatment with brentuximab on April 20, 2016. The patient received only one cycle of brentuximab, which was stopped because of severe diarrhea with bloody stool. He stated treatment with Opdivo on May 14, 2016. The patient received four courses of Opdivo completed on June 25, 2016, and that was stopped because of severe diarrhea. The patient started treatment with bendamustine and gemcitabine on August 10, 2016. Patient received six cycles of bendamustine and gemcitabine. HISTORY OF PRESENT ILLNESS Patient is here today for followup of his Hodgkin lymphoma. He is doing fine currently, except for having chronic back pain and also chronic fatigue. Other than that, he is doing really very well. PAST MEDICAL HISTORY 1. History of prostate cancer. 2. Antiphospholipid antibody syndrome. 3. Hyperlipidemia. 4. Hypertension. 5. History of pneumonia. 6. History of pulmonary embolism, March 2013. 7. History of GERD. 8. History of thyroid nodule. 9. History of actinic keratosis. PAST SURGICAL HISTORY 1. Cataract extraction bilaterally, December 2006. 2. Vascular surgery, September 2007. 3. Appendectomy at age [age]. 4. Cholecystectomy done laparoscopically in September 2004. 5. Bilateral inguinal hernia repairs, February 2010. 6. Prostatectomy for adenocarcinoma of the prostate, July 1996. 7. Tonsillectomy as a child. FAMILY HISTORY Negative for cancer or blood diseases. SOCIAL HISTORY The patient is with three daughters. 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 He quit smoking a long time ago. He denies any abuse of alcohol or illicit drugs. He drinks about one beer daily. CURRENT MEDICATIONS 1. Omeprazole 40 mg daily. 2. Lisinopril one tablet 5 mg daily. 3. Fish oil 1000 mg. 4. Multivitamins once daily. 5. Carvedilol 3.125 mg twice daily. 6. Probiotic one tablet daily. 7. Warfarin according to the order. 8. Calcium citrate one capsule daily. 9. Vitamin B12 at 1000 mcg one capsule daily. 10. Vitamin D3 at 1000 IU daily. ALLERGIES LEVAQUIN, CLINDAMYCIN. REVIEW OF SYSTEMS CONSTITUTIONAL: No appetite or weight change. No fever, chills or sweating. No recent infection. HEENT: Ears: No tinnitus or hearing problem. Nose: No nasal discharge or epistaxis. Throat: No sore throat or mouth ulcers. Eyes: No diplopia or visual changes. RESPIRATORY: No shortness of breath. No cough, expectoration or hemoptysis. CARDIOVASCULAR: No chest pain, orthopnea, or paroxysmal nocturnal dyspnea (PND). No edema. No palpitations. GASTROINTESTINAL: No nausea or vomiting. No diarrhea or constipation. No change in bowel movements. No heartburn or swallowing difficulties. No abdominal pain. No jaundice. No hematemesis, melena or rectal bleeding. GENITOURINARY: No hematuria or dysuria. MUSCULOSKELETAL: He has back pain which is chronic. NEUROLOGICAL: No tingling or numbness in the hands or feet. No headaches or convulsions. HEMATOLOGIC/LYMPHATIC: He has chronic fatigue. SKIN: No skin rash or lumps. PSYCHIATRIC: No anxiety or depression. PHYSICAL EXAMINATION GENERAL: Looks stable. Well-developed, well-nourished, and in no acute distress. VITAL SIGNS: Blood pressure 106/75, pulse 104 per minute, respirations 16 per minute, temperature 98.2, pulse oximetry 93% on room air. HEENT: Head: Atraumatic. No sinus tenderness to palpation. Eyes: No icterus or conjunctivitis. Mouth and throat: No oral thrush or mucositis. NECK: Supple. No cervical or supraclavicular lymphadenopathy. LUNGS: Clear to auscultation and percussion bilaterally. HEART: Regular rate and rhythm. No gallops, murmurs, clicks or rubs. ABDOMEN: Soft and lax. No tenderness. No hepatosplenomegaly. No masses. EXTREMITIES: No cyanosis, clubbing or edema. LYMPHATICS: No peripheral lymphadenopathy. NEUROLOGICAL: Conscious, alert and oriented times three. No focal motor or sensory deficits. PSYCHIATRIC: Mood and affect appear normal. SKIN: No skin rash, bruise or purpuric eruption. DIAGNOSTIC DATA CBC showed a white count of 5.6, hemoglobin 16.3, hematocrit 48.6, platelet 123,000. Chem panel totally normal except blood sugar 111, total bilirubin 1.6. ESR is [address] is [address] chest, abdomen and pelvis done on 13 August 2018 did not show any recurrent or metastatic disease. There was a stable, unchanged 4.6 cm ascending thoracic aortic aneurysm. ASSESSMENT 1. Classic Hodgkin lymphoma involving the retroperitoneum. Bone marrow was negative for metastasis, and PET scan revealed lymphadenopathy above and below the diaphragm. Patient received chemotherapy with AVD regimen with Adriamycin, vinblastine and dacarbazine, and treatment stopped because of deterioration of the left ventricular ejection fraction to 40%. Patient showed response to that treatment. He received one cycle of brentuximab on April 20, 2016, and the patient developed severe diarrhea with the treatment, so the treatment was stopped. He started treatment with Opdivo on May 14, 2016, and he received four courses, completed June 25, 2016, and treatment stopped because of the development of severe diarrhea and deterioration of his general condition, requiring hospitalization. After that, patient started treatment with bendamustine and gemcitabine on August 09, 2016, and he received six cycles, completed February 2017. CT chest, abdomen and pelvis done October 25, 2016, did not show any significant lymphadenopathy. His current CT chest, abdomen and pelvis on 13 August 2018 is negative for recurrent or metastatic disease. There was only 4.6 cm ascending aortic aneurysm. I am planning to continue followup. I will see him again in three months with CBC, chemistry panel, LDH, uric acid, ESR. 2. Early colon cancer after polypectomy of cecal polyp done December 04, 2015, which came back positive for invasive well-differentiated adenocarcinoma of the colon with invasion of the muscularis propria. Patient had resection of the right colon December 05, 2015. It was negative for residual disease. Tumor was staged as T2 N0 M0 (stage I). His current CEA is stable and normal at 2.5. I am planning to check his CEA with his visits. PLAN 1. Continue followup. 2. Patient to return in three months with CBC, chem panel, LDH, uric acid, ESR. 3. Patient to contact us for any new concerns or complaints. MTDD
== END 2018-09-04 15:11 | disposition home or self-care (01) ==
LOC: ONC 08:21
PROVIDERS: ATTEND Internal Medicine Hematology
DX: Z85.038 Personal history of other malignant neoplasm of large intestine (principal); I48.91 Unspecified atrial fibrillation; Z85.46 Personal history of malignant neoplasm of prostate; I10 Essential (primary) hypertension; E78.00 Pure hypercholesterolemia, unspecified; Z92.21 Personal history of antineoplastic chemotherapy
CPT/HCPCS: 99212

== ENCOUNTER → 2018-09-26 | Outpatient (CLI) | payer MEDICARE, OTHER ==
[2018-01-20 10:28] VITALS: BMI 25.9
[2018-09-26 09:08] LABS: INR 2.33
== END ==
LOC: ZZSPRING 02:34
PROVIDERS: ATTEND Pharmacist Pharmacotherapy
DX: D68.59 Other primary thrombophilia (principal); Z86.711 Personal history of pulmonary embolism; Z86.718 Personal history of other venous thrombosis and embolism
CPT/HCPCS: 36415; 85610

== ENCOUNTER → 2018-10-24 | Outpatient (CLI) | payer MEDICARE, OTHER ==
[2018-01-20 10:28] VITALS: BMI 25.9
[2018-10-24 09:00] LABS: INR 2.41
== END ==
LOC: ZZSPRING 02:35
PROVIDERS: ATTEND Pharmacist Pharmacotherapy
DX: Z51.81 Encounter for therapeutic drug level monitoring (principal); D68.59 Other primary thrombophilia
CPT/HCPCS: 36415; 85610